=== PATIENT | male | born 1955 ===

== ENCOUNTER 2024-08-07 15:21 | Inpatient (IN) | payer MEDICARE, BC, SELFPAY ==
[2024-08-07 15:32] VITALS: BP 129/74
[2024-08-07 15:36] VITALS: BP 129/74; BMI 32.7
--- NOTE | 2024-08-07 16:51 | CON.CAR ---
Addendum entered and electronically signed by Celso Fox MD 08/07/24 18:02:
I saw and examined the patient.
The MACHINE EGG WASHER's note was reviewed and I agree with the note.
Comment: 68 yo with empyema and NSTEMI transfered to consider CAB and further management of empyema. He is currently without complaint. RRR no m/r/g lungs with dimished right bs, aa0x3. On reveiw of chart echo was read as low normal ef50% no
significant valve disease. Cath MVD. Fluid studies shows possible empyema of pleural fluid. NSTEMI: heparin gtt stopped yesterday and no further cp with an acute on chronic anemia that is now stable, will off on resumption.Continue asa, bb and
statin. Review with CT surgery and IC regarding revasc plan. Keep NPO on until plan is clear. Plueral effusion to be evaluated by IR. LC: will monitor DM as per medicine.
Original Note:
Consultation
Consultation Request
Date/Time Consultation Requested: 08/07/241643
Date/Time Consultation Performed: 08/07/243
Requesting Provider: Dr. Preciado
Performing Provider: Daniela SURESH for Dr. Fox
Reason for Consultation: CAD, [facility] transfer for CABG
Medical History
-
Chief Complaint: SOB
History of Present Illness:
68 y/o (cardiology patient of Dr. Antunez) with hypertension, dyslipidemia, DM, lymphedema, hypothyroidism, and hx colon cancer who went to [facility] with SOB. Was admitted with LC, pleural effusion, tachycardia, and elevated troponin per [facility]
records. Troponin was abnormal c/w NSTEMI and cardiac cath showed triple vessel CAD. He was temporarily on heparin drip. He is seen to have evidence for empyema and started on IV ABX. He is transferred here for further management. He is in no
distress at the time of my assessment.
Past Medical History
Past Medical History: HTN, Hypercholesterolemia, Hypothyroidism and NIDDM
Social History
Tobacco: Non-Smoker
Family History
Family History: CAD (dad)
Allergies / Home Medications
Allergy/AdvReac Type Severity Reaction Status Date / Time
No Known Allergies Allergy Verified 08/07/24 15:27
�Medication �Instructions �Recorded �Confirmed �Type
acetaminophen 325 mg tablet 650 mg PO Q6H PRN mild pain 08/07/24 08/07/24 History
(Tylenol)
albuterol sulfate 2.5 mg/3 mL 2.5 mg inhalation Q4H PRN wheezing 08/07/24 08/07/24 History
(0.083 %) solution for nebulization
allopurinol 300 mg tablet 300 mg PO DAILY 08/07/24 08/07/24 History
amlodipine 5 mg tablet 5 mg PO DAILY 08/07/24 08/07/24 History
aspirin 81 mg tablet,delayed 81 mg PO DAILY 08/07/24 08/07/24 History
release
atorvastatin 20 mg tablet 20 mg PO QPM 08/07/24 08/07/24 History
azithromycin 500 mg intravenous 500 mg IV Q24H 08/07/24 08/07/24 History
solution
budesonide 160 mcg-glycopyr 9 2 inh inhalation DAILY 08/07/24 08/07/24 History
mcg-formot 4.8 mcg/actuation HFA
inhaler (Breztri Aerosphere)
carvedilol 12.5 mg tablet 12.5 mg PO BID 08/07/24 08/07/24 History
ceftriaxone 1 gram intravenous 1 g IV Q24H 08/07/24 08/07/24 History
solution
furosemide 40 mg tablet 40 mg PO DAILY 08/07/24 08/07/24 History
glipizide 10 mg tablet 10 mg PO BID 08/07/24 08/07/24 History
guaifenesin 100 mg/5 mL oral liquid 100 mg PO Q4H PRN cough 08/07/24 08/07/24 History
irbesartan 300 1 tab PO DAILY 08/07/24 08/07/24 History
mg-hydrochlorothiazide 12.5 mg
tablet
melatonin 5 mg tablet 5 mg PO HS PRN sleep 08/07/24 08/07/24 History
methylprednisolone 4 mg tablets in 0 mg PO PER PKG DIR 08/07/24 08/07/24 History
a dose pack
pioglitazone 15 mg tablet 15 mg PO DAILY 08/07/24 08/07/24 History
Review of Systems
-
History Source: Patient and Other (and chart)
All other systems: Negative unless noted
Respiratory: Trouble Breathing
Physical Exam
Vital Signs
Temp Pulse Resp BP Pulse Ox
97.4 F 93 18 129/74 97
08/07/24 15:36 08/07/24 16:00 08/07/24 15:36 08/07/24 15:36 08/07/24 15:59
Physical Exam
General: Well Developed, Well Nourished and No Apparent Distress
HEENT: Normocephalic and Anicteric
Respiratory: Other (right base diminished)
Cardiac: Regular Rhythm
Musculoskeletal: Edema (mild-moderate BLE edema- chronic stable per patient)
Skin: Warm, Dry and Other (LLE dressing CDI (chronic wound))
Neuro: AO x 3
Psych: Calm
Impression / Plan
-
CAD/NSTEMI:
-CAD is severe, NSTEMI is threat to life
-He has no CP
-he was on heparin, but stopped last night
-continue ASA, statin, BB
-discussion between CTS and interventional cardiology
Empyema:
-management per primary
-on ABX
-ID consulted
-IR consulted for intervention tomorrow
LE wound:
-wound care consulted
Anemia:
-check labs here and monitor
HTN:
-stable
-continue medical therapy and monitor
Dyslipidemia:
-LDL 51 at [facility]
-continue statin
DM:
-per primary
Data:
08/05/24 echo: EF 50-55%, grade I DD, mildly elevated PASP
cath 08/06/24: severe triple vessel CAD (details in physical chart)
Data Reviewed
-
EKG: Tracing Personally Visualized and interpreted (ST 123 BPM, nonspecific ST/T abnormality)
Medical Tests (Nuc Med, Echo etc): Report Reviewed by me (cath and echo as noted)
Labs: Labs Reviewed by me
Old Records: Reviewed ([facility] records as noted)
[2024-08-07 17:07] LABS: Glucose - Point of Care 205 mg/dl (70-99)
[2024-08-07] MEDS: ROBITUSSIN 100 MG PO ×2 (17:14→21:30)
[2024-08-07] MEDS: LIPITOR 20 MG PO (17:14)
[2024-08-07] MEDS: ROCEPHIN 1000 MG IV (17:14)
[2024-08-07] MEDS: GLUCOTROL 10 MG PO (17:14)
[2024-08-07] MEDS: STERILE WATER FOR INJECTION 10 ML IV (17:14)
--- NOTE | 2024-08-07 17:21 | PHA.VAN.IN ---
Assessment
- Assessment
Renal Function: Unknown baseline
Concomitant Antimicrobials: ROCEPHIN
- Previous Dosing Experience
Previous Regimen: NONE
AUC Dosing Plan
- Dosing Variables
Dosing Weight (kg): 103.3
Dosing CrCl (ml/min): 74
Vd coefficient (L/kg): 0.6
- Empiric Dosing
Initial / Loading Dose: 2GM
Maintenance Regimen: 1GM IV Q12H
Estimated AUC (mcg*h/mL): 506
Estimated Peak (mcg*h/mL): 29.5
Estimated Trough (mcg/ml): 14.3
Estimated Half Life (H): 10.5
Pharmacokinetics Vancomycin I
- -
Patient Age: 68
Patient Sex: Male
Vancomycin Day #: 1
Indication: Pulmonary/Respiratory
Requesting Provider: JUNO HELTON
Height / Weight:
Height 5 ft 10 in
Actual Weight 103.3 kg
- Vital Signs / Lab Results
Temp Pulse Resp BP Pulse Ox
97.4 F 93 18 129/74 97
08/07/24 15:36 08/07/24 16:00 08/07/24 15:36 08/07/24 15:36 08/07/24 15:59
[2024-08-07] MEDS: ZITHROMAX INFUSION 250 IV (17:36)
--- NOTE | 2024-08-07 18:10 | HPS.HSE ---
Family Physician
-
Family Physician: INTERVIEWE UNKNOWN - PT NOT
Chief Complaint
-
SOB
History of Present Illness
68-year-old male with a past medical history of colon cancer status post resection, hypertension, hyperlipidemia, hypothyroidism, and DVT was transferred from [facility] [address] for right-sided empyema and triple-vessel coronary artery disease
requiring CABG. Patient initially presented to [facility] on 08/04/24 for shortness of breath. He was found to have a right-sided empyema as well as an NSTEMI. He was temporarily on a heparin drip. Cardiac catheterization showed
triple-vessel coronary artery disease. He is currently on IV antibiotics for his empyema.
Currently, patient reports resolution of shortness of breath. He denies chest pain. His cough is improved. No fever, no headache, no lightheadedness, no dizziness. No dysuria, no black or bloody stools.
Medical History
Past Medical History
Past Medical History: Reports Other
Additional Past Medical History:
Colon cancer status post resection
Hypertension
Hyperlipidemia
Hypothyroidism
Type 2 diabetes
Gout
DVT
Shingles
Past Surgical History: Reports Other
Additional Past Surgical History:
Colon resection
Right wrist surgery
Left knee arthroscopy
Social History
Tobacco: Non-smoker
Alcohol: Occasional
Drug: None
Family History
Family History: Not pertinent
Allergies / Home Medications
Allergies reflects when Allergies were last updated in [facility].
Home Medications with original date entered in [facility]
Allergy/Medication List:
Allergies
Allergy/AdvReac Type Severity Reaction Status Date / Time
shellfish derived Allergy Itching Verified 08/07/24 17:12
Home Medications Table - record
�Medication �Instructions �Recorded �Confirmed
acetaminophen 325 mg tablet 650 mg PO Q6H PRN mild pain 08/07/24 08/07/24
(Tylenol)
albuterol sulfate 2.5 mg/3 mL 2.5 mg inhalation Q4H PRN wheezing 08/07/24 08/07/24
(0.083 %) solution for nebulization
allopurinol 300 mg tablet 300 mg PO DAILY 08/07/24 08/07/24
amlodipine 5 mg tablet 5 mg PO DAILY 08/07/24 08/07/24
aspirin 81 mg tablet,delayed 81 mg PO DAILY 08/07/24 08/07/24
release
atorvastatin 20 mg tablet 20 mg PO QPM 08/07/24 08/07/24
azithromycin 500 mg intravenous 500 mg IV Q24H 08/07/24 08/07/24
solution
budesonide 160 mcg-glycopyr 9 2 inh inhalation DAILY 08/07/24 08/07/24
mcg-formot 4.8 mcg/actuation HFA
inhaler (Breztri Aerosphere)
carvedilol 12.5 mg tablet 12.5 mg PO BID 08/07/24 08/07/24
ceftriaxone 1 gram intravenous 1 g IV Q24H 08/07/24 08/07/24
solution
furosemide 40 mg tablet 40 mg PO DAILY 08/07/24 08/07/24
glipizide 10 mg tablet 10 mg PO BID 08/07/24 08/07/24
guaifenesin 100 mg/5 mL oral liquid 100 mg PO Q4H PRN cough 08/07/24 08/07/24
irbesartan 300 1 tab PO DAILY 08/07/24 08/07/24
mg-hydrochlorothiazide 12.5 mg
tablet
melatonin 5 mg tablet 5 mg PO HS PRN sleep 08/07/24 08/07/24
methylprednisolone 4 mg tablets in 0 mg PO PER PKG DIR 08/07/24 08/07/24
a dose pack
pioglitazone 15 mg tablet 15 mg PO DAILY 08/07/24 08/07/24
Review of Systems
-
A 12 point ROS was completed and negative except as noted: Yes
Physical Exam
Vital Signs
Vital Signs
Temp Pulse Resp BP Pulse Ox
97.4 F 93 18 129/74 97
08/07/24 15:36 08/07/24 16:00 08/07/24 15:36 08/07/24 15:36 08/07/24 15:59
Physical Exam
General: Obese
HEENT: NormoCephalic, Anicteric and Moist mucous membranes
Respiratory: Crackles
Cardiac: S1/S2 and Regular Rhythm
GI: Soft, Non Tender, Non Distended and Normal Bowel Sounds
Musculoskeletal: No Clubbing, No Cyanosis and No Edema
Skin: Warm and Dry
Neuro: Awake, Alert and Oriented
Psych: Calm
Impression/Plan
-
HPI: 68-year-old male with a past medical history of colon cancer status post resection, hypertension, hyperlipidemia, hypothyroidism, and DVT was transferred from [facility] for right-sided empyema and triple-vessel coronary artery
disease requiring CABG. Patient initially presented to [facility] on 08/04/24 for shortness of breath. He was found to have a right-sided empyema as well as an NSTEMI. He was temporarily on a heparin drip. Cardiac catheterization
showed triple-vessel coronary artery disease. He is currently on IV antibiotics for his empyema.
Currently, patient reports resolution of shortness of breath. He denies chest pain. His cough is improved. No fever, no headache, no lightheadedness, no dizziness. No dysuria, no black or bloody stools.
Assessment/plan:
# Right-sided empyema
Thoracentesis on drained 10 cc of bloody fluid
He was treated with IV Rocephin, IV azithromycin, and IV vancomycin - continue while here
Consult IR, consult pulmonology, consult ID
#Non-ST elevation myocardial infarction
#Triple-vessel CABG
Consult cardiology
Continue aspirin, statin, Coreg
#Acute kidney injury
Monitor creatinine, no nephrotoxic drugs/NSAIDs
#Type 2 diabetes
Patient is on glipizide 10 mg twice a day, pioglitazone 50 mg daily
Will hold oral medications as patient is anticipated to be n.p.o. for his procedures
Accu-Cheks, sliding scale insulin
#Essential hypertension
Continue amlodipine 5 mg daily
#Gout
Continue allopurinol
DVT prophylaxis�subcu Lovenox
Full code
Total time spent to see the patient on the floor, examine the patient, review data and lab results, discuss treatment plan with patient, nursing staff around 79 minutes.
[2024-08-07] MEDS: LOVENOX 40 MG SC (18:33)
[2024-08-07] MEDS: VANCOCIN 540 MG IV (18:34)
[2024-08-07 18:53] VITALS: BP 119/67
--- NOTE | 2024-08-07 18:55 | CON.PUL ---
Consultation
Consultation Request
Date/Time Consultation Requested: 08/07/2024
Date/Time Consultation Performed: 08/07/2024
Requesting Provider: Robby Preciado
Performing Provider: Shruthi Branham
Reason for Consultation: Empyema
Medical History
-
Chief Complaint: Hemoptysis, shortness of breath
History of Present Illness:
68-year-old male with a past medical history of colon cancer status post resection, hypertension, hyperlipidemia, hypothyroidism, and DVT (25 years ago) was transferred from [facility] for right-sided empyema and triple-vessel coronary
artery disease for consideration of IR guided drainage and CABG.
Patient reports cough and flu like symptoms few weeks ago which were managed conservatively first, and later with Z-Pack and a short of course of steroids. His symptoms however persisted, and he started having trace hemoptysis along with shortness
of breath. He presented to ED at [facility] and was noted to have right sided pneumonia with loculated pleural effusion. During his stay there, he was also noted to have elevated Troponin, and was diagnosed with NSTEMI, subsequent cardiac cath
showed multivessel disease. He also had IR guided thoracentesis with 10 ml of sanguinous fluid which was noted to be exudate with elevated LDH, and subsequent gram stain was positive for Gram positive cocci, suggestive of empyema. Pulmonary consult
was requested for further recommendations regarding empyema.
Medical History
Additional Past Medical History:
Colon cancer status post resection
Hypertension
Hyperlipidemia
Hypothyroidism
Type 2 diabetes
Gout
DVT, 25 years ago, not on anticoagulation currently
Shingles
Past Surgical History: Reports Other
Additional Past Surgical History:
Colon resection
Right wrist surgery
Left knee arthroscopy
Social History
Tobacco: Non-smoker
Alcohol: Occasional
Drug: None
Family History
Family History: Not pertinent
Allergies / Home Medication
Allergies / Home Medications
Allergies
Allergy/AdvReac Type Severity Reaction Status Date / Time
shellfish derived Allergy Itching Verified 08/07/24 17:12
Home Medications
�Medication �Instructions �Recorded �Confirmed �Last Taken �Type
acetaminophen 325 mg tablet 650 mg PO Q6H PRN mild pain 08/07/24 08/07/24 Unknown History
(Tylenol)
albuterol sulfate 2.5 mg/3 mL 2.5 mg inhalation Q4H PRN wheezing 08/07/24 08/07/24 Unknown History
(0.083 %) solution for nebulization
allopurinol 300 mg tablet 300 mg PO DAILY 08/07/24 08/07/24 08/07/24 09:27 History
amlodipine 5 mg tablet 5 mg PO DAILY 08/07/24 08/07/24 08/07/24 09:27 History
aspirin 81 mg tablet,delayed 81 mg PO DAILY 08/07/24 08/07/24 08/07/24 09:27 History
release
atorvastatin 20 mg tablet 20 mg PO QPM 08/07/24 08/07/24 08/06/24 21:53 History
azithromycin 500 mg intravenous 500 mg IV Q24H 08/07/24 08/07/24 08/06/24 21:37 History
solution
budesonide 160 mcg-glycopyr 9 2 inh inhalation DAILY 08/07/24 08/07/24 08/05/24 17:15 History
mcg-formot 4.8 mcg/actuation HFA
inhaler (Breztri Aerosphere)
carvedilol 12.5 mg tablet 12.5 mg PO BID 08/07/24 08/07/24 08/07/24 09:27 History
ceftriaxone 1 gram intravenous 1 g IV Q24H 08/07/24 08/07/24 08/06/24 21:53 History
solution
furosemide 40 mg tablet 40 mg PO DAILY 08/07/24 08/07/24 08/07/24 09:27 History
glipizide 10 mg tablet 10 mg PO BID 08/07/24 08/07/24 Unknown History
guaifenesin 100 mg/5 mL oral liquid 100 mg PO Q4H PRN cough 08/07/24 08/07/24 Unknown History
irbesartan 300 1 tab PO DAILY 08/07/24 08/07/24 Unknown History
mg-hydrochlorothiazide 12.5 mg
tablet
melatonin 5 mg tablet 5 mg PO HS PRN sleep 08/07/24 08/07/24 08/06/24 21:53 History
methylprednisolone 4 mg tablets in 0 mg PO PER PKG DIR 08/07/24 08/07/24 Unknown History
a dose pack
pioglitazone 15 mg tablet 15 mg PO DAILY 08/07/24 08/07/24 Unknown History
Review of Systems
-
All other systems: Negative unless noted (No further hemoptysis. no cough, no chest pain )
Hematologic/Lymphatic: Other
Vitals / Labs / Diagnostic Testing
Vital Signs
Temp Pulse Resp BP Pulse Ox
97.4 F 93 18 129/74 97
08/07/24 15:36 08/07/24 16:00 08/07/24 15:36 08/07/24 15:36 08/07/24 15:59
Diagnostic Testing:
Physical Exam
-
HEENT: Normocephalic
Cardiovascular: S1/S2 and Peripheral Edema (Patient reports chronic lymphedema of both legs)
Respiratory: Other (Decreased air entry on the right side )
GI: Soft and Non Distended
Neurology: Awake and Alert
Skin: Warm
General: Comfortable
Assessment
-
#1. Right lung consolidation with Empyema. Pleural fluid Gram stain positive for GPC. Bedside POCUS performed and showed loculated pleural effusion with extensive phlegmon. Small volume fluid visualized.
-Start Vancomycin and Unasyn, ID consult
-Await final cultures of pleural fluid
-IR consult for chest tube, will start tPA/DNAse via chest tube. Discussed with IR and primary team.
-Considering extent of phlegmon, patient might need decortication. Will repeat CT chest after pleural drainage after 3-4 days of IV antibiotics and tPA/DNAse. Await Thoracic surgery input (patient also might need CABG)
#2. Hemoptysis. Suspect related to right lung consolidation. Resolved. Patient has never smoked.
-Will need CT chest for further evaluation after pleural drainage and treatment of pneumonia to evaluate for any parenchymal lesion, specially with h/o colon cancer
-Currently saturating well on room air
-Continue Vancomycin and Unasyn, await final cultures
-Patient tolerated ASA and Heparin infusion without any worsening hemoptysis prior to transfer
#3. Dyspnea. Due to Pneumonia, empyema and CAD
-Clinically improving. Cough significantly improved
-Patient has never smoked, no known h/o COPD/Asthma. D/c Spiriva and Symbicort
#4. NSTEMI, tripple vessel CAD
-ASA, Statins, Coreg
-Currently chest pain free
-Cardiology service on case.
Other medical diagnoses:
-HTN
-HLD
-DM
-h/o Gout
-?Lymphedema both lower extremities
Records from outside facility reviewed.
Pulmonary team will continue to follow
Total time spent on this consultation/encounter _81__ minutes which includes review of history, physical exam, medications, laboratory data, personal review of imaging, extensive review of outpatient records, discussion with care team and
respiratory therapy.
Data:
ECHO 04/2024: Technically limited and suboptimal study.
Grossly normal chamber size.
Grossly normal left and right ventricular systolic function.
Grade 1 diastolic dysfunction.
Trivial mitral, tricuspid and pulmonic insufficiency.
[2024-08-07 21:06] VITALS: BP 122/73
[2024-08-07] MEDS: COREG 12.5 MG PO (21:06)
[2024-08-07] MEDS: UNASYN IV (21:31)
[2024-08-07 22:14] VITALS: BP 126/71
[2024-08-07 22:17] LABS: Glucose - Point of Care 69 mg/dl (70-99)
[2024-08-07 22:47] LABS: Glucose - Point of Care 85 mg/dl (70-99)
--- NOTE | 2024-08-07 23:41 | PTCARENOTE ---
assumed care of patient at the change of shift. AAOx3. resting in the chair. independent in the room. SR on tele 80s-90s. bp stable. denies any cp/sob. + harsh/productive cough. 'coughing spells' per patient at times. PRN Robitussin given. lungs
clear, diminished R base. NPO at midnight. Chest xray ordered for the AM. answered all questions. IV abx ordered and given- new IV site placed. educated patient to inform RN with any changes overnight. call adams within reach makes needs know.
HS blood glucose- 69. patient asymptomatic. orange juice provided per protocol. repeat BG- 85.
[2024-08-08] VITALS (16 sets, daily range): BP systolic 86–154; BP diastolic 62–85
[2024-08-08 01:11] LABS: Glucose - Point of Care 87 mg/dl (70-99)
[2024-08-08] MEDS: UNASYN IV ×4 (03:57→20:53)
[2024-08-08 04:10] LABS: Glucose - Point of Care 98 mg/dl (70-99)
[2024-08-08 04:47] LABS: Hematocrit 26.3 % (39.0-52.0); Hemoglobin 8.9 g/dL (13.0-18.0); Mean Corp Hgb Conc. 33.8 g/dL (33.0-37.0); Mean Corpuscular Volume 103.5 fL (80.0-94.0); Mean Platelet Volume 11.2 fL (7.4-10.4); Platelet Count 254 10^3/uL (130-400); Red Blood Cell Count 2.54 10^6/uL (4.70-6.10); White Blood Cell Count 13.3 10^3/uL (4.8-10.8)
[2024-08-08 05:08] LABS: Blood Urea Nitrogen 39 mg/dl (9-20); Calcium 8.5 mg/dl (8.4-10.2); Carbon Dioxide 24 mmol/L (22-30); Chloride 109 mmol/L (98-107); Estimated Creatinine Clearance 72 ml/min; Glucose 93 mg/dl (70-99); Magnesium 1.5 mg/dl (1.6-2.3); Potassium 3.8 mmol/L (3.5-5.1); Sodium 141 mmol/L (135-145); eGFR > 60.00
[2024-08-08 05:18] LABS: NT-proBNP 1500 pg/ml
[2024-08-08 05:57] LABS: Hepatitis C Antibody Negative (Negative)
[2024-08-08] MEDS: VANCOCIN 200 IV ×2 (06:27→18:26)
[2024-08-08] MEDS: MAGNESIUM SULFATE 50 IV (06:28)
--- NOTE | 2024-08-08 06:34 | PTCARENOTE ---
mag 1.5 this morning. 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 2 gram IV mag ordered-see jun. nom complaints overnight. SR on tele 80s. room air 96%.
[2024-08-08 08:28] LABS: Glucose - Point of Care 139 mg/dl (70-99)
[2024-08-08] MEDS: NOVOLOG FLEXPEN-MODERATE RESISTANCE SC ×3 (08:52→16:48)
[2024-08-08] MEDS: COREG PO ×2 (09:04→11:42)
[2024-08-08] MEDS: NORVASC 5 MG PO (09:04)
[2024-08-08] MEDS: ASPIR LOW (ENTERIC COATED) 81 MG PO (09:05)
[2024-08-08] MEDS: LASIX 40 MG PO (09:05)
[2024-08-08] MEDS: ZYLOPRIM 300 MG PO (09:05)
--- NOTE | 2024-08-08 09:05 | PHA.VAN.FU ---
Vancomycin Assessment / Plan
- Assessment
Renal Function: Stable (1.2 (unknown baseline))
WBC's are: Stable (13.3)
In the past 24 hrs, patient has been: Afebrile
Concomitant Antimicrobials: Ampicillin/Sulbactam
- Dosing Plan
Continue: Vanco 1000mg Q12H
- Monitoring Plan
No level(s) ordered at this time: Consider in the next few days
- Follow Up
Pharmacy will continue to follow.
Vancomycin Follow UP
- -
Patient Age: 68
Patient Sex: Male
Vancomycin Day #: 2
Indication: Pulmonary/Respiratory
Requesting Provider: JUNO HELTON
Height / Weight:
Height 5 ft 10 in
Actual Weight 103.3 kg
- Vital Signs / Lab Results
Temp Pulse Resp BP Pulse Ox
98.9 F 90 20 112/69 96
08/08/24 08:11 08/08/24 04:00 08/08/24 08:11 08/08/24 03:58 08/08/24 08:11
Lab Results - Hematology
08/08/24
04:09
WBC 13.3 H
Lab Results - Chemistry
08/08/24
04:09
BUN 39 H
Creatinine 1.2
Estimated Creat Clear 72
--- NOTE | 2024-08-08 09:10 | W.PN.HOSP.TC ---
Today's Communication/Plan
-
see bold
Assessment / Plan
Assessment / Plan
HPI: 68-year-old male with a past medical history of colon cancer status post resection, hypertension, hyperlipidemia, hypothyroidism, and DVT was transferred from [facility] for right-sided empyema and triple-vessel coronary artery
disease requiring CABG. Patient initially presented to [facility] on 08/04/24 for shortness of breath. He was found to have a right-sided empyema as well as an NSTEMI. He was temporarily on a heparin drip. Cardiac catheterization
showed triple-vessel coronary artery disease. He is currently on IV antibiotics for his empyema.
Currently, patient reports resolution of shortness of breath. He denies chest pain. His cough is improved. No fever, no headache, no lightheadedness, no dizziness. No dysuria, no black or bloody stools.
Assessment/plan:
# Right-sided empyema
Thoracentesis on drained 10 cc of bloody fluid
He was treated with IV Rocephin, IV azithromycin, and IV vancomycin
Currently on IV vancomycin and Unasyn as per pulmonology
Appreciate pulmonology and IR, for right-sided chest tube today
ID consulted
#Non-ST elevation myocardial infarction
#Triple-vessel CAD
Cardiology following, patient was transferred from [facility] to [place] in anticipation of needing CABG
Continue aspirin, statin, Coreg
#Acute kidney injury
Resolved, creatinine now normal
Monitor creatinine, no nephrotoxic drugs/NSAIDs
#Type 2 diabetes
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
Patient's blood sugar has been on the lower side
Give glipizide 5 mg twice a day for now
Accu-Cheks, sliding scale insulin
#Essential hypertension
Amlodipine discontinued secondary to lower extremity edema
Monitor blood pressure for now
#Gout
Continue allopurinol
#Hypomagnesemia
Replete as needed
DVT prophylaxis�subcu Lovenox
Full code
Total time spent to see the patient on the floor, examine the patient, review data and lab results, discuss treatment plan with patient, nursing staff around 41 minutes.
Physical Exam
General: Obese, no acute distress
HEENT: Normocephalic, Atraumatic, EOMI, MMM
Respiratory: Right basilar crackles
Cardiac: Normal S1/S2, Regular Rate and Rhythm
GI: Soft, Nontender, Nondistended, Normal Bowel Sounds
Extremities: No Clubbing, Cyanosis
Severe bilateral lower extremity lymphedema noted
Neuro: Nonfocal/Grossly Intact
Psych: Calm, Cooperative
Anticipated Discharge: > 48 hours
Subjective/Interval History
-
Date of Service: August 08, 2024
Patient denies chest pain, shortness of breath. No fever, no vomiting.
Objective Data
-
Labs:
Laboratory Results
08/08/24
04:09
WBC 13.3 H
Hgb 8.9 L
Hct 26.3 L
Plt Count 254
Sodium 141
Potassium 3.8
Chloride 109 H
Carbon Dioxide 24
BUN 39 H
Creatinine 1.2
Glucose 93
Calcium 8.5
Vital Signs:
Vital Signs
Temp Pulse Resp BP Pulse Ox
98.9 F 86 20 114/72 96
08/08/24 08:11 08/08/24 09:04 08/08/24 08:11 08/08/24 09:04 08/08/24 08:11
I&O
08/07/24 08/08/24 08/09/24
06:59 06:59 06:59
Intake Total 450 / 450
Balance 450 / 450
--- NOTE | 2024-08-08 09:49 | W.PN.PUL3 ---
Today's Communication / Plan
-
-D/c Norvasc (pedal edema)
-IR guided pleural drainage, start tPA/DNAse
-Check pleural fluid and serum Triglycerides
-f/u CXR in AM
Assessment
-
8-year-old male with a past medical history of colon cancer status post resection, hypertension, hyperlipidemia, hypothyroidism, and DVT (25 years ago) was transferred from [facility] for right-sided empyema and triple-vessel coronary
artery disease for consideration of IR guided drainage and CABG.
Patient reports cough and flu like symptoms few weeks ago which were managed conservatively first, and later with Z-Pack and a short of course of steroids. His symptoms however persisted, and he started having trace hemoptysis along with shortness
of breath. He presented to ED at [facility] and was noted to have right sided pneumonia with loculated pleural effusion. During his stay there, he was also noted to have elevated Troponin, and was diagnosed with NSTEMI, subsequent cardiac cath
showed multivessel disease. He also had IR guided thoracentesis with 10 ml of sanguinous fluid which was noted to be exudate with elevated LDH, and subsequent gram stain was positive for Gram positive cocci, suggestive of empyema. Pulmonary consult
was requested for further recommendations regarding empyema.
#1. Right lung consolidation with Empyema. Pleural fluid Gram stain positive for GPC. Bedside POCUS performed (08/07) and showed loculated pleural effusion with extensive phlegmon. Small volume fluid visualized. 08/05, Pleural fluid LDH 1569, Fluid
triglycerides 202
-Continue Vancomycin and Unasyn, ID consult
-Await final cultures of pleural fluid
-IR consult for chest tube, will start tPA/DNAse via chest tube. Discussed with IR and primary team.
-Pleural fluid triglyceride >110 (202 on 07/2024). Will repeat pleural fluid Triglycerides and also check serum triglycerides to see the ratio to evaluate for any chylothorax
-Considering extent of phlegmon, patient might need decortication. Will repeat CT chest after pleural drainage, after 3-4 days of IV antibiotics and tPA/DNAse. Await Thoracic surgery input (patient also might need CABG)
#2. Hemoptysis. Suspect related to right lung consolidation. Resolved. Patient has never smoked. No PE noted on CTA on 08/04/2024
-Will need CT chest for further evaluation after pleural drainage and treatment of pneumonia to evaluate for any parenchymal lesion, specially with h/o colon cancer.
-Currently saturating well on room air
-Continue Vancomycin and Unasyn, await final cultures
-Patient tolerated ASA and Heparin infusion without any worsening hemoptysis prior to transfer
#3. Dyspnea. Due to Pneumonia, empyema and CAD
-Clinically improving. Cough significantly improved
-Patient has never smoked, no known h/o COPD/Asthma. D/c Spiriva and Symbicort
#4. NSTEMI, tripple vessel CAD
-ASA, Statins, Coreg
-Currently chest pain free
-Cardiology service on case.
#5. Mild Pulmonary HTN. RHC on 07/2024 showed mean PAP 22 with PVR 1.7. PCWP 9.
-Patient will need sleep study as out patient as high pre-test probability of underlying sleep disordered breathing
-Will arrange out patient follow up with Pulmonary clinic
#6. Chronic pedal edema. Patient reports long standing edema. ?lymphedema vs medication related. PCWP normal
-D/c Norvasc, can cause pedal edema
-on Lasix currently
Other medical diagnoses:
-HTN
-HLD
-DM
-h/o Gout
-?Lymphedema both lower extremities
Records from outside facility reviewed.
Pulmonary team will continue to follow
Total time spent on this consultation/encounter _42__ minutes which includes review of history, physical exam, medications, laboratory data, personal review of imaging, extensive review of outpatient records, discussion with care team and
respiratory therapy.
Data:
ECHO 04/2024: Technically limited and suboptimal study.
Grossly normal chamber size.
Grossly normal left and right ventricular systolic function.
Grade 1 diastolic dysfunction.
Trivial mitral, tricuspid and pulmonic insufficiency.
CT Chest 08/04/2024: No PE noted. Loculated pleural effusion on right. No Lymphadenopathy
Cardiac Cath 08/06: Severe Tripple vessel CAD
ECHO 07/2024: Grade I diqastolic dysfunction, LVEF 50-55%, mildly elevated Pulm artery pressure, 30 mm
RHC 07/2024: PA 38/15 with mean of 22
PCWP 9, Cardiac output 7.3 with CI 3.36, PVR 1.7
Subjective Data
-
Date of Service:
Date of Service: August 08, 2024
Subjective:
Patient comfortably sitting in bed, no acute distress. No further hemoptysis. Mild nonproductive cough. No chest pain reported.
Review of Systems
Genitourinary: Other (All 14 systems reviewed and negative except as stated above in the history of present illness.)
Objective Data
Data Reviewed
Vital Signs / I&O / Oxygen:
Vital Signs
Temp Pulse Resp BP Pulse Ox
98.9 F 86 20 114/72 96
08/08/24 08:11 08/08/24 09:04 08/08/24 08:11 08/08/24 09:04 08/08/24 08:11
Intake and Output
08/07/24 08/08/24 08/09/24
06:59 06:59 06:59
Intake Total 450 / 450
Balance 450 / 450
SaO2 96
Physical Exam
General: Comfortable
HEENT: Normocephalic
Cardiovascular: S1-S2 and Peripheral Edema
Respiratory: Other (Somewhat decreased air entry in the right lower lobe, otherwise no wheezing or crackles.)
GI: Soft and Non Distended
Neurology: Awake and Alert
Labs/Micro/Reports
Lab Data
08/08/24 04:09
08/08/24 04:09
--- NOTE | 2024-08-08 10:12 | CM ---
Chart reviewed. Patient is independent of ADLS, lives with his in a split level, 0 ALFREDO, 0 DME. Plan is for the patient to return home. CM to follow
[2024-08-08 10:18] LABS: Glycohemoglobin (HgbA1c) 7.2 % (4.0-5.6)
--- NOTE | 2024-08-08 10:59 | WOUNDNOTE ---
Wound Care Instructions Follow up with your wound care Doctor at [facility] and resume wound care as ordered
Continue with pumps/compression as ordered.
[2024-08-08 12:08] LABS: Glucose - Point of Care 125 mg/dl (70-99)
--- NOTE | 2024-08-08 12:17 | WOUNDNOTE ---
WO RN NOTE: Reviewed chart and met with patient. Patient stated he follows with [facility] for left lateral leg wound. He states he has had the wound for approximally 6 months. Patient also states he wears compression daily and
uses lymphedema pumps at home. He moisturizes his LE daily and ambulates independently. shift boss RN appropriately provided wound care. Patient states he uses alginate if drainage becomes heavy. Will update orders. Confirmed order for compression
with LILLIAN with hospitalist and updated RN. Will follow as needed.
--- NOTE | 2024-08-08 13:18 | CON.ID ---
Consultation
-
Date/Time Consultation Requested: 08/07/24 16:22
Date/Time Consultation Performed: 08/08/24 13:18
Requesting Provider: Dr Preciado
Performing Provider: Dr Bailey
Reason for Consultation: empyema
Chief Complaint / Past History
Chief Complaint
shortness of breath
History of Present Illness
Mr Miller is a 68 year old male with history of colon cancer s/p resection and recent diagnosis of empyema and 3x vessel CAD requiring CABG at [facility] transferred for the CABG. Notes from [facility] are not currently available on the paper chart and
do not yet appear to be scanned into [employer] - this would typically occur when notes are in medical records to be scanned in. History is thus obtained by chart review. He first presented to [facility] 08/04 for shortness of breath where he was found to
have R sided empyema and tipple vessel CAD on cardiac cath. Reports no coughing or choaking with eating. No history of MRSA colonization that he is aware of.
Symptoms first occurred several weeks ago, flu like, first observed, later treated with a zpac and then a short course of steroids. He progressed to hemoptysis and shortness of breath. He presented to [facility] found to have R sided pnuemonia and
loculuated pleural effusion. IR thoracenteissi of 10 mL of sanguinous fluid, exudative, with elevated LDH and gram stain positive for GPCs.
Since arrival here patient has been afebrile, bp stable, wbc 13.3, hgb 8.9, plt 254, cr 1.2, a1c 7.2, bnp 1500, CXR 1 view: Moderate right pleural effusion. Some of this effusion is likely loculated in the right lower thorax medially. Mild
compressive partial atelectasis in right lower lobe. patient taken for chest tube placement and had routine studies that are not yet available.
Past History
Additional Past Medical History:
Colon cancer status post resection
Hypertension
Hyperlipidemia
Hypothyroidism
Type 2 diabetes
Gout
DVT
Shingles
Additional Past Surgical History:
Colon resection
Right wrist surgery
Left knee arthroscopy
Allergy History:
shellfish derived Allergy (Verified 08/07/24 17:12)
Itching
Medications Reviewed: Yes
Social History
Tobacco: Non-Smoker
Alcohol: Occasional
Drug: None
Family History
Family History: Not Pertinent
Review of Systems
Review of Systems
General: Negative Fever or Chills
All systems: All other systems were reviewed and were negative
Vital Signs
Temp Pulse Resp BP Pulse Ox
98.1 F 94 15 153/85 97
08/08/24 12:50 08/08/24 12:50 08/08/24 12:50 08/08/24 12:50 08/08/24 12:50
Physical Exam
Physical Exam
Constitutional: No Acute Distress and Chronically Ill
Cardiovascular: Regular Rate and S1/S2; Negative Murmur or Rub
Pulmonary: Clear and Coarse; Negative Symmetric, Wheezes, Rales or Rhonchi
Gastrointestinal: Soft, Non Tender, Non Distended and Normal Bowel Sounds
Skin: Warm and Dry; Negative Rash or Jaundice
Lab / Diagnostic Study Results
08/08/24 04:09
08/08/24 04:09
Assessment / Plan
R Sided Empyema
Pulmonary HTN
CAD
- s/p chest tube placement
- pleural studies notable for markedly elevated LDH - consistent with exudate,
- peripheral LDH and protein ordered
- body fluid gram stain here pending, at OSH notable for GPCs
- agree with repeat CT chest in several days
- chest tube management per pulmonary
- note consideration of possible decortication, eventual CABG
- agree with vancomycin and unasyn at this time
- follow vancomycin levels closely
- follow clinically
workup required interpretation of multiple lab results and antibiotic management
--- NOTE | 2024-08-08 13:57 | PN.IRAD.UPD ---
Update Note - IRAD
- -
Instilled 50ml of Dornase and 50ml of TPA into right sided chest tube and clamped at 13:55. Unclamp chest tube at 15:55.
Mehrdad Alvarado RT(R)()
[2024-08-08 14:36] LABS: Body Fluid pH 7.28
--- NOTE | 2024-08-08 14:41 | PTCARENOTE ---
received pt back from IR. R CT dressing dry and intact. CT currently clamped. pt is sr on the monitor, hr in the 90s, vss. O2 95% RA. pt has no complaints at this time. pt educated on plan of care and pt verbalized understanding.
[2024-08-08 14:44] LABS: Body Fluid WBC 5518 /CUMM
[2024-08-08 14:45] LABS: Body Fluid Mononuclear 12.4 %; Body Fluid Polymorphonuclear 87.6 %
[2024-08-08 14:47] LABS: Body Fluid Protein 4.6 g/dl; Body Fluid Triglycerides 126 mg/dl
[2024-08-08 14:48] LABS: Body Fluid Second Tech EM
[2024-08-08] MEDS: ROBITUSSIN 100 MG PO ×2 (15:13→19:52)
[2024-08-08 15:17] LABS: Body Fluid LDH 1185 U/L
[2024-08-08] MEDS: ROXICODONE 5 MG PO (16:31)
[2024-08-08] MEDS: GLUCOTROL 5 MG PO (16:44)
[2024-08-08 16:50] LABS: Glucose - Point of Care 116 mg/dl (70-99)
--- NOTE | 2024-08-08 17:02 | W.PN.CD ---
Today's Communication / Plan
-
Review cardiac catheterization.
Medical management of this type 2 event (non-ischemic troponin elevation).
Presentation is clearly related to his PNA/empyema.
Ideally, we will let the patient recover from his PNA and allow him to get full revascularization and avoid worsening hemoptysis from required DAPT for PCI.
Impression / Plan
-
Impression/Plan: 68 y/o male with HTN, HLD and NIDDM admitted to [facility] with SOB, found to have right sided PNA complicated by empyema and abnormal troponin, subsequently diagnosed with 3V CAD and transferred for further management.
#CAD/Troponin elevation
-Chronic, progressive.
-CAD is reportedly severe.
-He has no CP.
-Troponin peaked at 3995 at [facility] (DH equivalent of 3.995).
-Echo reportedly technically difficult, unable to assess RWMA, but LVEF preserved (50-55%).
-I suspect that his troponin elevation is a type II event and not acute coronary syndrome (non-ischemic troponin elevation).
-Continue ASA, statin, BB.
-I have spoken with Dr. Burns, the rayon coner who performed the coronary angiogram. Based on the patient's troponin pattern and his coronary artery disease, Dr. Burns and I agree that this event is NOT ACS, but rather a type 2 event.
-Accordingly, I suggest that this event be managed medically and efforts are focused on his PNA/empyema. After this is definitively managed, we can consider elective revascularization (surgical, percutaneous, hybrid).
-I will ask [facility] to send a pepper cutter with a copy of the patient's films on Sunday.
#PNA/Empyema
-Acute, threat to life.
-Pleural fluid positive for GPC's (08/05/2024).
-Chest tube placed with chemical decortication (tPA).
-Continue ABX per ID.
-Cx data pending.
#LE wound
-Unclear duration.
-Wound care consulted.
#Anemia:
-Unclear duration.
-MCV elevated.
-Check Fe studies, B12/Folate/Thiamine, reticulocyte count.
#HTN:
-Chronic, stable.
-Continue medical therapy and monitor.
#Dyslipidemia
-Chronic, stable.
-LDL 51 at [facility].
-Continue statin.
#DM
-Chronic, mildly uncontrolled.
-HbA1c = 7.2%.
-Management per primary team.
Subjective/Interval History:
Chart reviewed.
Patient underwent chest tube placement with 30 mL of dark, serous fluid.
Heparin gtt stopped given distance from troponin elevation, unlikely ACS.
Data:
[facility] Echo, 05/13/2024:
CONCLUSIONS
Technically limited and suboptimal study.
Grossly normal chamber size.
Grossly normal left and right ventricular systolic function.
Grade 1 diastolic dysfunction.
Trivial mitral, tricuspid and pulmonic insufficiency.
Cardiac Catheterization 08/06/24:
Severe triple vessel CAD (details in physical chart).
Chest Tube Placement, 08/08/2024:
IMPRESSION:
1. Successful ultrasound and fluoroscopically guided placement of a right chest tube, yielding 30 mL of dark serous nonpurulent fluid.
2. TPA and dornase were then infused into the chest tube immediately following placement (please see separate report).
Physical Exam
Vital Signs/Labs
Vital Signs
Temp Pulse Resp BP Pulse Ox
36.9 C 95 20 127/70 97
08/08/24 14:39 08/08/24 14:16 08/08/24 14:39 08/08/24 14:16 08/08/24 14:39
08/07/24 08/08/24 08/09/24
11:59 11:59 11:59
Actual Weight 103.3 kg
08/08/24 04:09
08/08/24 04:09
Magnesium 1.5 mg/dl (1.6-2.3) L 08/08/24 04:09
08/08/24
04:09
Gvr-L-Mrlggssylon Pept 1500
Physical Exam
Constitutional: No acute distress and Comfortable
EENT: Anicteric and Moist mucous membranes
Cardiovascular: Rhythm & rate is regular, JVD pressure is normal, Pedal edema present, S1S2 is normal and Murmur/rub/gallop absent
Respiratory: Respiratory effort normal and Other (Decreased, tubular breath sounds in the RLL.)
GI: Soft, Distention absent, Flat, Non tender and Normal bowel sounds
Neuro/Psych: AO x 3
Data Reviewed
-
Date of Service: August 08, 2024
Medical Decision Making: Reviewed Test Results, Independent Historian Assessment and Test Interpretation
EKG: Tracing Personally Visualized and interpreted and Report Reviewed by me
Echo: Report Reviewed by me
X-Ray/CT/US/MRI/NUC/PET: Image Personally Visualized and interpreted and Report Reviewed by me
Medical Tests (PFT, Pathology etc): Report Reviewed by me
Labs: Labs Reviewed by me
Old Records: Reviewed
[2024-08-08 17:25] LABS: Total Protein 6.1 g/dl (6.3-8.2)
[2024-08-08 17:36] LABS: LDH 260 U/L (120-246)
[2024-08-08] MEDS: LOVENOX 40 MG SC (18:26)
[2024-08-08] MEDS: LIPITOR 20 MG PO (18:26)
[2024-08-08] MEDS: STERILE WATER FOR INJECTION IV (18:27)
[2024-08-08 18:35] LABS: Reticulocyte Count 2.3 % (0.4-2.8)
[2024-08-08 18:43] LABS: Iron 53 ug/dl (49-181)
[2024-08-08 18:52] LABS: Percent Saturation 30 % (20-50); Total Iron Binding Capacity 174 ug/dl (261-462)
[2024-08-08 19:50] LABS: Folate 9.2 ng/ml (2.76-20); Vitamin B12 422 pg/ml (239-931)
[2024-08-08] MEDS: COREG 12.5 MG PO (19:51)
[2024-08-08] MEDS: TYLENOL 650 MG PO (19:51)
--- NOTE | 2024-08-08 21:38 | PTCARENOTE ---
Patient received at change of shift resting in the bed. Right sided chest tube assessed, dressing C/D/I, no crepitus, no tidaling noted, suction set to -20mmHg, sanguinous output noted. Patient endorses mild/mod pain at chest tube site, prn
acetaminophen given, see MAR. Patient was initially agitated regarding previous blood draws, stated he would not allow any more blood to be drawn but is otherwise cooperative with care. Oxygen saturation 95% on room air. Sinus rhythm on telemetry.
Plan of care discussed. Call adams within reach.
[2024-08-08 21:53] LABS: Glucose - Point of Care 207 mg/dl (70-99)
[2024-08-09 02:51] VITALS: BP 102/62
[2024-08-09] MEDS: UNASYN IV ×4 (02:51→20:08)
[2024-08-09 02:52] VITALS: BMI 32.7
[2024-08-09 03:26] LABS: Triglycerides 231 mg/dl (10-149)
[2024-08-09] MEDS: VANCOCIN 200 IV ×2 (05:06→17:58)
[2024-08-09 07:26] VITALS: BP 112/68
[2024-08-09 07:30] LABS: Glucose - Point of Care 189 mg/dl (70-99)
--- NOTE | 2024-08-09 09:17 | W.PN.HOSP.TC ---
Today's Communication/Plan
-
see bold
Assessment / Plan
Assessment / Plan
HPI: 68-year-old male with a past medical history of colon cancer status post resection, hypertension, hyperlipidemia, hypothyroidism, and DVT was transferred from [facility] for right-sided empyema and triple-vessel coronary artery
disease requiring CABG. Patient initially presented to [facility] on 08/04/24 for shortness of breath. He was found to have a right-sided empyema as well as an NSTEMI. He was temporarily on a heparin drip. Cardiac catheterization
showed triple-vessel coronary artery disease. He is currently on IV antibiotics for his empyema.
Currently, patient reports resolution of shortness of breath. He denies chest pain. His cough is improved. No fever, no headache, no lightheadedness, no dizziness. No dysuria, no black or bloody stools.
Assessment/plan:
# Right-sided empyema
Thoracentesis on drained 10 cc of bloody fluid
He was treated with IV Rocephin, IV azithromycin, and IV vancomycin
Appreciate pulmonology and IR, status post right-sided chest tube placement by IR on 08/08
Continue vancomycin and Unasyn as per ID, follow-up on cultures
#Non-ST elevation myocardial infarction
#Triple-vessel CAD
Cardiology following, patient was transferred from [facility] to [place] in anticipation of needing CABG
Cardiology recommends treatment of empyema first, then revascularization procedure down the line
Continue aspirin, statin, Coreg
#Acute kidney injury
Resolved, creatinine now normal
Monitor creatinine, no nephrotoxic drugs/NSAIDs
#Type 2 diabetes
Patient is on glipizide 10 mg twice a day, pioglitazone 50 mg daily [employer]
Patient's blood sugar has been on the lower side when on glipizide 10 mg twice a day
He states his oral intake is poor, continue glipizide 5 mg twice a day for now
Accu-Cheks, sliding scale insulin
#Essential hypertension
Amlodipine discontinued secondary to lower extremity edema
Monitor blood pressure for now
#Gout
Continue allopurinol
#Hypomagnesemia
Replete as needed
DVT prophylaxis�subcu Lovenox
Full code
Total time spent to see the patient on the floor, examine the patient, review data and lab results, discuss treatment plan with patient, nursing staff around 45 minutes.
Physical Exam
General: Obese, no acute distress
HEENT: Normocephalic, Atraumatic, EOMI, MMM
Respiratory: Right basilar crackles
Cardiac: Normal S1/S2, Regular Rate and Rhythm
GI: Soft, Nontender, Nondistended, Normal Bowel Sounds
Extremities: No Clubbing, Cyanosis
Severe bilateral lower extremity lymphedema noted
Neuro: Nonfocal/Grossly Intact
Psych: Calm, Cooperative
Anticipated Discharge: > 48 hours
Subjective/Interval History
-
Date of Service: August 09, 2024
Patient reports having pain at his right chest tube site. No shortness of breath. No nausea, no vomiting. No fever.
Objective Data
-
Vital Signs:
Vital Signs
Temp Pulse Resp BP Pulse Ox
98.1 F 81 18 112/68 97
08/09/24 07:37 08/09/24 07:26 08/09/24 07:37 08/09/24 07:26 08/09/24 07:37
I&O
08/08/24 08/09/24 08/10/24
06:59 06:59 06:59
Intake Total 450 / 450 1500 / 1500
Output Total 995 / 995
Balance 450 / 450 505 / 505
[2024-08-09] MEDS: LASIX 40 MG PO (09:20)
[2024-08-09] MEDS: ASPIR LOW (ENTERIC COATED) 81 MG PO (09:20)
[2024-08-09] MEDS: GLUCOTROL 5 MG PO ×2 (09:20→16:30)
[2024-08-09] MEDS: ROBITUSSIN 100 MG PO ×3 (09:20→22:22)
[2024-08-09] MEDS: ZYLOPRIM 300 MG PO (09:20)
--- NOTE | 2024-08-09 09:47 | PHA.VAN.FU ---
Vancomycin Assessment / Plan
- Assessment
Renal Function: No New Labs Today
In the past 24 hrs, patient has been: Afebrile
Concomitant Antimicrobials: AMPICILLIN/SULBACTAM
- Dosing Plan
Continue: VANCO 1000MG Q12H
- Monitoring Plan
Peak Level: 08/09 @2100
Trough Level: 08/10 @0530
- Follow Up
Pharmacy will continue to follow.
Vancomycin Follow UP
- -
Patient Age: 68
Patient Sex: Male
Vancomycin Day #: 3
Indication: Pulmonary/Respiratory
Requesting Provider: JUNO HELTON
Height / Weight:
Height 5 ft 10 in
Actual Weight 103.5 kg
- Vital Signs / Lab Results
Temp Pulse Resp BP Pulse Ox
98.1 F 81 18 112/68 97
08/09/24 07:37 08/09/24 07:26 08/09/24 07:37 08/09/24 07:26 08/09/24 07:37
Lab Results - Hematology
08/08/24
04:09
WBC 13.3 H
Lab Results - Chemistry
08/08/24
04:09
BUN 39 H
Creatinine 1.2
Estimated Creat Clear 72
Microbiology Results
08/08/24 14:02 Gram Stain - Preliminary
Pleural Fluid
--- NOTE | 2024-08-09 10:14 | W.PN.ID1 ---
Date of Service
Date of Service: August 09, 2024
Today's Communication
- agree with vancomycin and unasyn pending further data
- follow vancomycin levels closely - peak and troughs pending
- follow clinically
workup required interpretation of multiple lab results
Assessment / Plan
R Sided Empyema
Pulmonary HTN
CAD
- s/p chest tube placement
- exudative effusion
- body fluid gram stain here pending, at OSH notable for GPCs
- agree with repeat CT chest in several days
- chest tube management per pulmonary
- note consideration of possible decortication, eventual CABG
- vancomycin peak was not done last night
- agree with vancomycin and unasyn pending further data
- follow vancomycin levels closely - peak and troughs pending
- follow clinically
workup required interpretation of multiple lab results
Chief Complaint
-: Other (empyema)
Subjective / Review of Systems
afebrile
bp stable
'Im feeling better'
Vital Signs / Physical Exam
Vital Signs
Vital Signs
Temp Pulse Resp BP Pulse Ox
98.1 F 81 18 112/68 97
08/09/24 07:37 08/09/24 07:26 08/09/24 07:37 08/09/24 07:26 08/09/24 07:37
Physical Exam
Constitutional: No Acute Distress and Chronically Ill
Cardiovascular: Regular Rate and S1/S2; Negative Murmur or Rub
Pulmonary: Clear and Symmetric; Negative Wheezes or Rales
Gastrointestinal: Soft, Non Tender, Non Distended and Normal Bowel Sounds
Skin: Warm and Dry; Negative Rash or Jaundice
Lines: Other (chest tube - serosanguinous fluid)
Objective Data
Lab Data
Lab Results
08/08/24 04:09
08/08/24 04:09
Estimated Creat Clear 72 ml/min 08/08/24 04:09
Most recent labs reviewed.
Micro Results:
08/08/24 14:02 Body Fluid Culture - Pending
Pleural Fluid Gram Stain - Preliminary
08/08/24 15:18 Blood Culture - Pending
Blood/Venous
08/08/24 15:19 Blood Culture - Pending
Blood/Venous
[2024-08-09] MEDS: COREG 12.5 MG PO ×2 (10:22→20:08)
[2024-08-09] MEDS: NOVOLOG FLEXPEN-MODERATE RESISTANCE SC (10:27)
--- NOTE | 2024-08-09 10:43 | W.PN.CD ---
Addendum entered and electronically signed by Celso Fox MD 08/09/24 13:34:
I saw and examined the patient.
The GAS PUMP ATTENDANT's note was reviewed and I agree with the note.
Comment: He is feeling better, some pain the CT site, no cp or sob. He has increase lower extremity edema. on exam lung cta b/l, rrr, extremities without compression and has 2+le edema. Plan is for Dr Kebede to review cath films Sunday to decide
timing of intervention. Overall consensus is he had a Type II PR in the setting of acute illness(PNA/Empyema). Treatment of Empyema and PNA most clinically salient issue currently. Otherwise, recommend LILLIAN wraps of legs bl. Continue furosemide,
does not appear to have total body volume overload.
Will return to care on Sunday.
Original Note:
Today's Communication / Plan
-
-continue ASA, statin, BB
-follow tele and BP's
-further plan for CAD as below
Impression / Plan
-
Impression/Plan: 68 y/o male with HTN, HLD and NIDDM admitted to [facility] with SOB, found to have right sided PNA complicated by empyema and abnormal troponin, subsequently diagnosed with 3V CAD and transferred for further management.
#CAD/Troponin elevation
-Chronic, progressive.
-CAD is reportedly severe.
-He has no CP.
-Troponin peaked at 3995 at [facility] (DH equivalent of 3.995).
-Echo reportedly technically difficult, unable to assess RWMA, but LVEF preserved (50-55%).
-troponin elevation suspected to be a type II event and not acute coronary syndrome
-Continue ASA, statin, BB.
-Dr. Kebede spoke to Dr. Burns, the lottery sales clerk who performed the coronary angiogram. Based on the patient's troponin pattern and his coronary artery disease, they agreed that this event is NOT ACS, but rather a type 2 event.
Accordingly, event to be managed medically and efforts are focused on his PNA/empyema. After this is definitively managed, we can consider elective revascularization (surgical, percutaneous, hybrid). Dr. Kebede to ask [facility] to send a engineer byproduct with a
copy of the patient's films on Sunday. Ideally, we will let the patient recover from his PNA and allow him to get full revascularization and avoid worsening hemoptysis from required DAPT for PCI.
#PNA/Empyema
-Pleural fluid positive for GPC's (08/05/2024).
-Chest tube placed with chemical decortication (tPA).
-Continue ABX per ID.
-Cx data pending.
#LE wound
-Unclear duration.
-Wound care consulted.
#Anemia:
-Unclear duration.
-further testing ordered
-management per primary
#HTN:
-Chronic, stable.
-Continue medical therapy and monitor.
#Dyslipidemia
-Chronic, stable.
-LDL 51 at [facility].
-Continue statin.
#DM
-Chronic, mildly uncontrolled.
-HbA1c = 7.2%.
-Management per primary team.
LE edema:
-continue lasix
Subjective/Interval History:
Denies CP, sitting OOB to chair, has two friends with him. He is in good spirits.
Data:
[facility] Echo, 05/13/2024:
CONCLUSIONS
Technically limited and suboptimal study.
Grossly normal chamber size.
Grossly normal left and right ventricular systolic function.
Grade 1 diastolic dysfunction.
Trivial mitral, tricuspid and pulmonic insufficiency.
Cardiac Catheterization 08/06/24:
Severe triple vessel CAD (details in physical chart).
Chest Tube Placement, 08/08/2024:
IMPRESSION:
1. Successful ultrasound and fluoroscopically guided placement of a right chest tube, yielding 30 mL of dark serous nonpurulent fluid.
2. TPA and dornase were then infused into the chest tube immediately following placement (please see separate report).
Physical Exam
Vital Signs/Labs
Vital Signs
Temp Pulse Resp BP Pulse Ox
98.1 F 81 18 112/68 97
08/09/24 07:37 08/09/24 07:26 08/09/24 07:37 08/09/24 07:26 08/09/24 07:37
08/08/24 08/09/24 08/10/24
06:59 06:59 06:59
Actual Weight 103.3 kg 103.5 kg
08/08/24 04:09
08/08/24 04:09
Magnesium 1.5 mg/dl (1.6-2.3) L 08/08/24 04:09
Triglycerides 231 mg/dl (10-149) H 08/09/24 02:51
08/08/24
04:09
Ond-C-Iidzlgoplbz Pept 1500
Physical Exam
Constitutional: No acute distress
EENT: Anicteric
Cardiovascular: Rhythm & rate is regular and Pedal edema present
Respiratory: Respiratory effort normal, Lungs clear to auscul. and Other (CT in place)
Neuro/Psych: AO x 3
Data Reviewed
-
Date of Service: August 09, 2024
EKG: Other (tele SR)
Labs: Labs Reviewed by me
--- NOTE | 2024-08-09 10:46 | PTCARENOTE ---
Received patient this morning sitting oob in the chair. Feels more comfortable, states he has been sleeping in a chair at home for over a year due to his breathing and cough. R CT to 20cm suction, no air leak noted. Offered tylenol or oxycodone for
severe pain at the CT but the patient declined. Refusing any breakfast this morning. States he cannot take coreg on an empty stomach, agreeable to eating some derrick crackers and a banana with his meds.
[2024-08-09 11:34] VITALS: BP 125/69
--- NOTE | 2024-08-09 12:41 | W.PN.PUL3 ---
Today's Communication / Plan
-
Doing well post chest tube placement and tpa/dornase
Continue to monitor output, still too high for clamping
Continue abx per team, ID following
Will eventually need CT chest for further eval, but can wait next 24-48 hours for better clearance
Reviewed plan of care with patient
Assessment
-
68-year-old male with a past medical history of colon cancer status post resection, hypertension, hyperlipidemia, hypothyroidism, and DVT (25 years ago) was transferred from [facility] for right-sided empyema and triple-vessel coronary
artery disease for consideration of IR guided drainage and CABG. Patient reports cough and flu like symptoms few weeks ago which were managed conservatively first, and later with Z-Pack and a short of course of steroids. His symptoms however
persisted, and he started having trace hemoptysis along with shortness of breath. He presented to ED at [facility] and was noted to have right sided pneumonia with loculated pleural effusion. During his stay there, he was also noted to have
elevated Troponin, and was diagnosed with NSTEMI, subsequent cardiac cath showed multivessel disease. He also had IR guided thoracentesis with 10 ml of sanguinous fluid which was noted to be exudate with elevated LDH, and subsequent gram stain was
positive for Gram positive cocci, suggestive of empyema. Pulmonary consult was requested for further recommendations regarding empyema. We are consulted for evaluation.
Right lung consolidation with Empyema s/p chest tube
s/p tpa/dornase 08/08
Hemoptysis
Dyspnea
NSTEMI
Mild Pulmonary HTN
Other medical diagnoses:
-HTN
-HLD
-DM
-h/o Gout
-?Lymphedema both lower extremities
Plan
Empyema, s/p chest tube 08/08
Pleural fluid Gram stain positive for GPC. Bedside POCUS performed (08/07) and showed loculated pleural effusion with extensive phlegmon.
Small volume fluid visualized. 08/05, Pleural fluid LDH 1569, Fluid triglycerides 202, pH 7.28
s/p tPA/DNAse
Monitor output, still 595mL past 24 hours
Continue Vancomycin and Unasyn, ID consult
Await final cultures of pleural fluid--no growth
Pleural fluid triglyceride >110 (202 on 07/2024). Output is pink/serosanguineous, chylous unlikely
Will obtain CT chest after pleural drainage, after 3-4 days of IV antibiotics and tPA/DNAse. Consider repeat dosing in next 24-48 hours.
May need Thoracic surgery input if not improving
Suspect related to right lung consolidation. Resolved. Patient has never smoked. No PE noted on CTA on 08/04/[address] chest for further evaluation after pleural drainage and treatment of pneumonia to evaluate for any parenchymal lesion, specially with h/o colon cancer.
Can obtain in next 24-48 hours
Currently saturating well on room air
Continue Vancomycin and Unasyn, await final cultures
Patient tolerated ASA and Heparin infusion without any worsening hemoptysis prior to transfer
Due to Pneumonia, empyema and CAD
Clinically improving. Cough significantly improved, denies SOB
Patient has never smoked, no known h/o COPD/Asthma. D/c Spiriva and Symbicort
History of triple vessel CAD
LE edema at baseline, resume home meds/lasix
ASA, Statins, Coreg
Currently chest pain free
Cardiology service on case.
RHC on 07/2024 showed mean PAP 22 with PVR 1.7. PCWP 9.
Patient will need sleep study as out patient as high pre-test probability of underlying sleep disordered breathing
Will arrange out patient follow up with Pulmonary clinic
Chronic pedal edema. Patient reports long standing edema. ?lymphedema vs medication related. PCWP normal
D/c Norvasc, can cause pedal edema
On Lasix currently
Records from outside facility reviewed.
OP Pulm FU recommended
Pulmonary team will continue to follow
Data:
ECHO 04/2024: Technically limited and suboptimal study. Grossly normal chamber size. Grossly normal left and right ventricular systolic function. Grade 1 diastolic dysfunction. Trivial mitral, tricuspid and pulmonic insufficiency.
ECHO 07/2024: Grade I diastolic dysfunction, LVEF 50-55%, mildly elevated Pulm artery pressure, [address] Chest 08/04/2024: No PE noted. Loculated pleural effusion on right. No Lymphadenopathy
Cardiac Cath 08/06: Severe Tripple vessel CAD
RHC 07/2024: PA 38/15 with mean of 22; PCWP 9, Cardiac output 7.3 with CI 3.36, PVR 1.7
Total time spent on this consultation/encounter _52__ minutes which includes review of history, physical exam, medications, laboratory data, personal review of imaging, extensive review of outpatient records, discussion with care team and
respiratory therapy.
Subjective Data
-
Date of Service:
Date of Service: August 09, 2024
Chief Complaint: Pulmonary Follow Up
Subjective:
Remains with chest tube in place
Discomfort at insertion site but otherwise feels good
No SOB
Objective Data
Data Reviewed
Vital Signs / I&O / Oxygen:
Vital Signs
Temp Pulse Resp BP Pulse Ox
98.0 F 85 18 125/69 95
08/09/24 11:35 08/09/24 11:34 08/09/24 11:35 08/09/24 11:34 08/09/24 11:35
Intake and Output
08/08/24 08/09/24 08/10/24
06:59 06:59 06:59
Intake Total 450 / 450 1500 / 1500 360 / 360
Output Total 995 / 995 300 / 300
Balance 450 / 450 505 / 505 60 / 60
SaO2 95
Nasal Cannula flow liters per 2
minute
Physical Exam
General: Comfortable and Other (NAD)
HEENT: Normocephalic, Anicteric and Moist Mucous Membranes
Cardiovascular: S1-S2, Regular Rhythm and Peripheral Edema (bilateral, 3+, baseline)
Respiratory: Clear, Chest Tube and Other (Somewhat decreased air entry in the right lower lobe)
GI: Soft, Non Distended and Non Tender
Neurology: Awake, Alert, Oriented and No Motor Deficits
Skin: Warm, Dry and Good Color
Labs/Micro/Reports
Lab Data
08/08/24 04:09
08/08/24 04:09
Microbiology
08/08/24 14:02 Pleural Fluid Body Fluid Culture - Preliminary
No Growth After 18-24 Hours
08/08/24 14:02 Pleural Fluid Gram Stain - Preliminary
[2024-08-09] MEDS: TYLENOL 650 MG PO ×2 (13:05→20:53)
[2024-08-09 14:24] LABS: Glucose - Point of Care 206 mg/dl (70-99)
[2024-08-09] MEDS: NOVOLOG FLEXPEN-MODERATE RESISTANCE 3 UNITS SC (14:24)
[2024-08-09 14:47] VITALS: BP 111/59
[2024-08-09 16:12] LABS: Glucose - Point of Care 253 mg/dl (70-99)
[2024-08-09] MEDS: STERILE WATER FOR INJECTION IV (16:19)
[2024-08-09] MEDS: NOVOLOG FLEXPEN-MODERATE RESISTANCE 5 UNITS SC (16:29)
[2024-08-09] MEDS: LOVENOX 40 MG SC (17:57)
[2024-08-09] MEDS: LIPITOR 20 MG PO (17:57)
[2024-08-09] MEDS: FLUSH (NSS) 1 FLUSH IV (17:58)
[2024-08-09 19:34] VITALS: BP 130/64
[2024-08-09 20:28] LABS: Glucose - Point of Care 162 mg/dl (70-99)
[2024-08-09 21:15] LABS: Vancomycin Peak 34.9 ug/ml (18-26)
[2024-08-09 22:16] VITALS: BP 135/73
--- NOTE | 2024-08-09 23:20 | PTCARENOTE ---
Pt. remains NSR on the monitor. Right lateral chest tube to -20 cm wall/H20 suction; dressing CDI without crepitus or air leak assessed, draining very small amount SS fluid. Lungs diminished (right greater than left), pulse ox on RA mid to high
90's. Medicated with Tylenol for CT insertion site discomfort with adequate relief obtained, Robitussin given for frequent dry cough. Pt. pleasant, sitting OOB in chair at this time.
[2024-08-10 02:54] VITALS: BP 126/70
[2024-08-10] MEDS: UNASYN IV ×4 (02:57→20:16)
[2024-08-10 04:18] VITALS: BMI 32.9
[2024-08-10 05:38] LABS: Hematocrit 26.7 % (39.0-52.0); Hemoglobin 8.8 g/dL (13.0-18.0); Mean Corpuscular Hgb 34.8 pg (27.0-31.0); Mean Corpuscular Volume 105.5 fL (80.0-94.0); Mean Platelet Volume 11.2 fL (7.4-10.4); Platelet Count 270 10^3/uL (130-400); Red Blood Cell Count 2.53 10^6/uL (4.70-6.10); Red Cell Dist. Width 14.9 % (11.5-14.5); White Blood Cell Count 11.4 10^3/uL (4.8-10.8)
[2024-08-10 05:49] LABS: Vancomycin Trough 27.2 ug/ml (5-20)
--- NOTE | 2024-08-10 05:53 | PTCARENOTE ---
Vanco trough level of 27.2 reported to pharmacy. Per pharmacist hold 0600 dose today, further dosing to be determined later this morning.
[2024-08-10 05:54] LABS: Blood Urea Nitrogen 36 mg/dl (9-20); Calcium 8.5 mg/dl (8.4-10.2); Carbon Dioxide 25 mmol/L (22-30); Chloride 109 mmol/L (98-107); Estimated Creatinine Clearance 79 ml/min; Glucose 114 mg/dl (70-99); Magnesium 1.7 mg/dl (1.6-2.3); Potassium 4.3 mmol/L (3.5-5.1); Sodium 141 mmol/L (135-145); eGFR > 60.00
[2024-08-10 08:07] VITALS: BP 146/75
--- NOTE | 2024-08-10 08:09 | W.PN.HOSP.TC ---
Today's Communication/Plan
-
see bold
Assessment / Plan
Assessment / Plan
HPI: 68-year-old male with a past medical history of colon cancer status post resection, hypertension, hyperlipidemia, hypothyroidism, and DVT was transferred from [facility] for right-sided empyema and triple-vessel coronary artery
disease requiring CABG. Patient initially presented to [facility] on 08/04/24 for shortness of breath. He was found to have a right-sided empyema as well as an NSTEMI. He was temporarily on a heparin drip. Cardiac catheterization
showed triple-vessel coronary artery disease. He is currently on IV antibiotics for his empyema.
Currently, patient reports resolution of shortness of breath. He denies chest pain. His cough is improved. No fever, no headache, no lightheadedness, no dizziness. No dysuria, no black or bloody stools.
Assessment/plan:
# Right-sided empyema
Thoracentesis on drained 10 cc of bloody fluid
He was treated with IV Rocephin, IV azithromycin, and IV vancomycin at [facility]
Appreciate pulmonology and IR, status post right-sided chest tube placement by IR on 08/08
Continue vancomycin and Unasyn as per ID, follow-up on cultures
Pulmonology recommends chest CT in the morning
#Non-ST elevation myocardial infarction
#Triple-vessel CAD
Cardiology following, patient was transferred from [facility] to [place] in anticipation of needing CABG
Cardiology recommends treatment of empyema first, then revascularization procedure down the line
Continue aspirin, statin, Coreg
#Chronic lymphedema
Continue Faizan compression
#Acute kidney injury
Resolved, creatinine now normal
Monitor creatinine, no nephrotoxic drugs/NSAIDs
#Type 2 diabetes
Patient is on glipizide 10 mg twice a day, pioglitazone 50 mg daily [employer]
Increase glipizide back to home dose - 10 mg twice a day, hold pioglitazone
Accu-Cheks, sliding scale insulin
#Essential hypertension
Amlodipine discontinued secondary to lower extremity edema
Monitor blood pressure for now
#Gout
Continue allopurinol
#Hypomagnesemia
Replete as needed
DVT prophylaxis�subcu Lovenox
Full code
Total time spent to see the patient on the floor, examine the patient, review data and lab results, discuss treatment plan with patient, nursing staff around 45 minutes.
Physical Exam
General: Obese, no acute distress
HEENT: Normocephalic, Atraumatic, EOMI, MMM
Respiratory: Right basilar crackles
Cardiac: Normal S1/S2, Regular Rate and Rhythm
GI: Soft, Nontender, Nondistended, Normal Bowel Sounds
Extremities: No Clubbing, Cyanosis
Severe bilateral lower extremity lymphedema noted
Neuro: Nonfocal/Grossly Intact
Psych: Calm, Cooperative
Anticipated Discharge: > 48 hours
Subjective/Interval History
-
Date of Service: August 10, 2024
Patient's right-sided chest pain from the chest tube site is improved. Has mild coughing intermittently. Denies chest pain, no fever, no vomiting.
Objective Data
-
Labs:
Laboratory Results
08/10/24
05:15
WBC 11.4 H
Hgb 8.8 L
Hct 26.7 L
Plt Count 270
Sodium 141
Potassium 4.3
Chloride 109 H
Carbon Dioxide 25
BUN 36 H
Creatinine 1.1
Glucose 114 H
Calcium 8.5
Vital Signs:
Vital Signs
Temp Pulse Resp BP Pulse Ox
98.9 F 81 20 126/70 97
08/10/24 08:06 08/10/24 02:54 08/10/24 08:06 08/10/24 02:54 08/10/24 08:06
I&O
08/09/24 08/10/24 08/11/24
06:59 06:59 06:59
Intake Total 1500 / 1500 1760 / 1760
Output Total 995 / 995 1130 / 1130
Balance 505 / 505 630 / 630
[2024-08-10] MEDS: GLUCOTROL PO (08:34)
--- NOTE | 2024-08-10 09:12 | W.PN.ID1 ---
Date of Service
Date of Service: August 10, 2024
Today's Communication
- will continue with vancomycin and unasyn pending further data
- follow vancomycin levels closely
Assessment / Plan
R Sided Empyema
Pulmonary HTN
CAD
- s/p chest tube placement
- exudative effusion
- body fluid gram stain here negative and culture no growth to date, spoke with [facility] lab regarding their pleural fluid culture - only positive thus far is the gram stain - no ID or sensitives yet. Will also request the formal report
- agree with repeat CT chest in several days
- chest tube management per pulmonary
- note consideration of possible decortication, eventual CABG
- vancomycin peak and trough elevated - agree with holding vancomycin today - level is mildly supratherapeutic
- will continue with vancomycin and unasyn pending further data
- follow vancomycin levels closely
- follow clinically
workup required interpretation of multiple lab results and coordination of care with microbiology lab at [facility]
Chief Complaint
-: Other (empyema)
Subjective / Review of Systems
afebrile
bp stable
tolerating current therapies
Vital Signs / Physical Exam
Vital Signs
Vital Signs
Temp Pulse Resp BP Pulse Ox
98.9 F 88 20 146/75 97
08/10/24 08:06 08/10/24 08:07 08/10/24 08:06 08/10/24 08:07 08/10/24 08:07
Physical Exam
Constitutional: No Acute Distress
Cardiovascular: Regular Rate and S1/S2; Negative Murmur or Rub
Pulmonary: Clear and Symmetric; Negative Wheezes or Rales
Gastrointestinal: Soft, Non Tender, Non Distended and Normal Bowel Sounds
Skin: Warm and Dry; Negative Rash or Jaundice
Lines: Other (chest tube)
Objective Data
Lab Data
Lab Results
08/10/24 05:15
08/10/24 05:15
Estimated Creat Clear 79 ml/min 08/10/24 05:15
Most recent labs reviewed.
Micro Results:
08/10/24 08:40 Nasal Screen MRSA (PCR) - Pending
Nose
08/08/24 15:18 Blood Culture - Preliminary
Blood/Venous No Growth in 24 hours- Final report to follow
08/08/24 15:19 Blood Culture - Preliminary
Blood/Venous No Growth in 24 hours- Final report to follow
08/08/24 14:02 Body Fluid Culture - Preliminary
Pleural Fluid No Growth After 18-24 Hours
Gram Stain - Preliminary
[2024-08-10 09:13] LABS: Glucose - Point of Care 118 mg/dl (70-99)
[2024-08-10] MEDS: NOVOLOG FLEXPEN-MODERATE RESISTANCE SC (09:23)
[2024-08-10] MEDS: ASPIR LOW (ENTERIC COATED) 81 MG PO (09:26)
[2024-08-10] MEDS: LASIX 40 MG PO (09:26)
[2024-08-10] MEDS: COREG 12.5 MG PO ×2 (09:26→20:15)
[2024-08-10] MEDS: FLUSH (NSS) 2 FLUSH IV (09:27)
[2024-08-10] MEDS: ZYLOPRIM 300 MG PO (09:27)
[2024-08-10] MEDS: TYLENOL 650 MG PO (09:27)
[2024-08-10] MEDS: GLUCOTROL 10 MG PO ×2 (09:27→18:30)
--- NOTE | 2024-08-10 09:32 | PHA.VAN.FU ---
Vancomycin Assessment / Plan
- Assessment
Renal Function: SCR Decreasing
WBC's are: Trending Down
In the past 24 hrs, patient has been: Afebrile
Concomitant Antimicrobials: AMPICILLIN/SULBACTAM
- Assessment - Therapeutic Drug Monitoring
Extrapolated Cmax (mcg/mL): 36.7
Peak level was drawn: Appropriately
Extrapolated Cmin (mcg/mL): 26.6
Trough Drawn: Appropriately
Levels were drawn: At steady state
Calculated AUC (mcg*h/mL): 754
Calculated ke: 0.0292
Calculated half life (H): 23.7
Calculated Vd (L): 90.74
Calculated Vanc CL (ml/min): 44.18
- Dosing Plan
Dosing by Level: Hold off on dosing today (CONSIDER NEW REGIMEN 1000MG Q24H (AUC 383, CMAX 21.9, CMIN 11.2))
- Follow Up
Pharmacy will continue to follow.
Vancomycin Follow UP
- -
Patient Age: 68
Patient Sex: Male
Vancomycin Day #: 3
Indication: Pulmonary/Respiratory
Requesting Provider: JUNO HELTON
Height / Weight:
Height 5 ft 10 in
Actual Weight 104.1 kg
- Vital Signs / Lab Results
Temp Pulse Resp BP Pulse Ox
98.9 F 88 20 146/75 97
08/10/24 08:06 08/10/24 08:07 08/10/24 08:06 08/10/24 08:07 08/10/24 08:07
Lab Results - Hematology
08/08/24 08/10/24
04:09 05:15
WBC 13.3 H 11.4 H
Lab Results - Chemistry
08/08/24 08/10/24
04:09 05:15
BUN 39 H 36 H
Creatinine 1.2 1.1
Estimated Creat Clear 72 79
Microbiology Results
08/08/24 15:18 Blood Culture - Preliminary
Blood/Venous No Growth in 24 hours- Final report to follow
08/08/24 15:19 Blood Culture - Preliminary
Blood/Venous No Growth in 24 hours- Final report to follow
08/08/24 14:02 Body Fluid Culture - Preliminary
Pleural Fluid No Growth After 18-24 Hours
Gram Stain - Preliminary
Therapeutic Drug Monitoring
Vancomycin Peak 34.9 ug/ml (18-26) H 08/09/24 20:43
Vancomycin Trough 27.2 ug/ml (5-20) H* 08/10/24 05:15
--- NOTE | 2024-08-10 10:05 | W.PN.PUL3 ---
Today's Communication / Plan
-
Output decreased overnight to 5mL, continue to monitor output next [address] Chest in AM, if fluid appears minimal can consider d/c
Encouraged OOB, PT otherwise
Reviewed plan with patient today
Assessment
-
68-year-old male with a past medical history of colon cancer status post resection, hypertension, hyperlipidemia, hypothyroidism, and DVT (25 years ago) was transferred from [facility] for right-sided empyema and triple-vessel coronary
artery disease for consideration of IR guided drainage and CABG. Patient reports cough and flu like symptoms few weeks ago which were managed conservatively first, and later with Z-Pack and a short of course of steroids. His symptoms however
persisted, and he started having trace hemoptysis along with shortness of breath. He presented to ED at [facility] and was noted to have right sided pneumonia with loculated pleural effusion. During his stay there, he was also noted to have
elevated Troponin, and was diagnosed with NSTEMI, subsequent cardiac cath showed multivessel disease. He also had IR guided thoracentesis with 10 ml of sanguinous fluid which was noted to be exudate with elevated LDH, and subsequent gram stain was
positive for Gram positive cocci, suggestive of empyema. Pulmonary consult was requested for further recommendations regarding empyema. We are consulted for evaluation.
Right lung consolidation with Empyema s/p chest tube
s/p tpa/dornase 08/08
Hemoptysis
Dyspnea
NSTEMI
Mild Pulmonary HTN
Other medical diagnoses:
-HTN
-HLD
-DM
-h/o Gout
-?Lymphedema both lower extremities
Plan
Empyema, s/p chest tube 08/08
Pleural fluid Gram stain positive for GPC. Bedside POCUS performed (08/07) and showed loculated pleural effusion with extensive phlegmon.
Small volume fluid visualized. 08/05, Pleural fluid LDH 1569, Fluid triglycerides 202, pH 7.28
s/p tPA/DNAse
Monitor output, 595mL noted prior, past 24 hours about 5mL
Would monitor another day
Continue Vancomycin and Unasyn, ID consult
Await final cultures of pleural fluid--no growth
Pleural fluid triglyceride >110 (202 on 07/2024). Output is pink/serosanguineous, chylous unlikely
Will obtain CT chest after pleural drainage, after 3-4 days of IV antibiotics and tPA/DNAse. Consider repeat dosing in next 24-48 hours.
May need Thoracic surgery input if not improving
Suspect related to right lung consolidation. Resolved. Patient has never smoked. No PE noted on CTA on 08/04/[address] chest for further evaluation after pleural drainage and treatment of pneumonia to evaluate for any parenchymal lesion, specially with h/o colon cancer.
Will obtain imaging in AM
Currently saturating well on room air
Continue Vancomycin and Unasyn, await final cultures
Patient tolerated ASA and Heparin infusion without any worsening hemoptysis prior to transfer
Due to Pneumonia, empyema and CAD
Clinically improving. Cough significantly improved, denies SOB
Patient has never smoked, no known h/o COPD/Asthma. D/c Spiriva and Symbicort
History of triple vessel CAD
LE edema at baseline, resume home meds/lasix
ASA, Statins, Coreg
Currently chest pain free
Cardiology service on case.
RHC on 07/2024 showed mean PAP 22 with PVR 1.7. PCWP 9.
Patient will need sleep study as out patient as high pre-test probability of underlying sleep disordered breathing
Will arrange out patient follow up with Pulmonary clinic
Chronic pedal edema. Patient reports long standing edema. ?lymphedema vs medication related. PCWP normal
D/c Norvasc, can cause pedal edema
On Lasix currently
Records from outside facility reviewed.
OP Pulm FU recommended
Pulmonary team will continue to follow
Data:
ECHO 04/2024: Technically limited and suboptimal study. Grossly normal chamber size. Grossly normal left and right ventricular systolic function. Grade 1 diastolic dysfunction. Trivial mitral, tricuspid and pulmonic insufficiency.
ECHO 07/2024: Grade I diastolic dysfunction, LVEF 50-55%, mildly elevated Pulm artery pressure, [address] Chest 08/04/2024: No PE noted. Loculated pleural effusion on right. No Lymphadenopathy
Cardiac Cath 08/06: Severe Tripple vessel CAD
RHC 07/2024: PA 38/15 with mean of 22; PCWP 9, Cardiac output 7.3 with CI 3.36, PVR 1.7
Total time spent on this consultation/encounter _52__ minutes which includes review of history, physical exam, medications, laboratory data, personal review of imaging, extensive review of outpatient records, discussion with care team and
respiratory therapy.
Subjective Data
-
Date of Service:
Date of Service: August 10, 2024
Chief Complaint: Pulmonary Follow Up
Subjective:
Output decreased overnight, he feels no new complaints
Stable on RA
Objective Data
Data Reviewed
Vital Signs / I&O / Oxygen:
Vital Signs
Temp Pulse Resp BP Pulse Ox
98.9 F 88 20 146/75 97
08/10/24 08:06 08/10/24 08:07 08/10/24 08:06 08/10/24 08:07 08/10/24 08:07
Intake and Output
08/09/24 08/10/24 08/11/24
06:59 06:59 06:59
Intake Total 1500 / 1500 1760 / 1760
Output Total 995 / 995 1130 / 1130
Balance 505 / 505 630 / 630
SaO2 97
Nasal Cannula flow liters per 2
minute
Physical Exam
General: Comfortable and Other (NAD)
HEENT: Normocephalic, Anicteric and Moist Mucous Membranes
Cardiovascular: S1-S2, Regular Rhythm and Peripheral Edema (bilateral, 3+, baseline)
Respiratory: Clear, Chest Tube and Other (Somewhat decreased air entry in the right lower lobe)
GI: Soft, Non Distended and Non Tender
Neurology: Awake, Alert, Oriented and No Motor Deficits
Skin: Warm, Dry and Good Color
Labs/Micro/Reports
Lab Data
08/10/24 05:15
08/10/24 05:15
Microbiology
08/08/24 15:18 Blood/Venous Blood Culture - Preliminary
No Growth in 24 hours- Final report to follow
08/08/24 15:19 Blood/Venous Blood Culture - Preliminary
No Growth in 24 hours- Final report to follow
08/08/24 14:02 Pleural Fluid Body Fluid Culture - Preliminary
No Growth After 18-24 Hours
08/08/24 14:02 Pleural Fluid Gram Stain - Preliminary
--- NOTE | 2024-08-10 10:26 | PTCARENOTE ---
Received patient this morning oob in the chair sleeping. R CT to -20cm wall suction, no drainage from previous shift. Patient medicated now for 8/[address] and is resting back in the bed.
[2024-08-10 12:06] VITALS: BP 130/70
[2024-08-10 12:32] LABS: Glucose - Point of Care 173 mg/dl (70-99)
[2024-08-10] MEDS: NOVOLOG FLEXPEN-MODERATE RESISTANCE 1 UNITS SC (12:40)
[2024-08-10 16:50] VITALS: BP 135/75
[2024-08-10] MEDS: ROBITUSSIN 100 MG PO ×2 (17:55→23:09)
[2024-08-10 18:29] LABS: Glucose - Point of Care 209 mg/dl (70-99)
[2024-08-10] MEDS: NOVOLOG FLEXPEN-MODERATE RESISTANCE 3 UNITS SC (18:29)
[2024-08-10] MEDS: LIPITOR 20 MG PO (18:30)
[2024-08-10] MEDS: LOVENOX 40 MG SC (18:30)
[2024-08-10] MEDS: STERILE WATER FOR INJECTION IV (18:31)
[2024-08-10 18:48] VITALS: BP 135/72
[2024-08-10 21:56] LABS: Glucose - Point of Care 132 mg/dl (70-99)
[2024-08-10 21:58] VITALS: BP 135/76
[2024-08-11] VITALS (7 sets, daily range): BP systolic 128–163; BP diastolic 71–85; BMI 32.8
[2024-08-11] MEDS: TYLENOL 1000 MG PO ×3 (00:03→22:31)
[2024-08-11] MEDS: UNASYN IV ×4 (03:05→19:59)
[2024-08-11 05:05] LABS: Hematocrit 23.9 % (39.0-52.0); Hemoglobin 7.9 g/dL (13.0-18.0); Mean Corp Hgb Conc. 33.1 g/dL (33.0-37.0); Mean Corpuscular Hgb 34.8 pg (27.0-31.0); Mean Corpuscular Volume 105.3 fL (80.0-94.0); Mean Platelet Volume 11.2 fL (7.4-10.4); Platelet Count 233 10^3/uL (130-400); Red Blood Cell Count 2.27 10^6/uL (4.70-6.10); Red Cell Dist. Width 14.9 % (11.5-14.5); White Blood Cell Count 10.3 10^3/uL (4.8-10.8)
[2024-08-11 05:34] LABS: Blood Urea Nitrogen 29 mg/dl (9-20); Calcium 8.2 mg/dl (8.4-10.2); Carbon Dioxide 25 mmol/L (22-30); Chloride 109 mmol/L (98-107); Estimated Creatinine Clearance 87 ml/min; Glucose 80 mg/dl (70-99); Sodium 141 mmol/L (135-145); eGFR > 60.00
[2024-08-11 05:39] LABS: Vancomycin Random 13.6 ug/ml
--- NOTE | 2024-08-11 07:56 | W.PN.CD ---
Today's Communication / Plan
-
Awaiting films
Cont cardiac meds: BP elevated today likely awaitng meds well controlled other cohen
Impression / Plan
-
Impression/Plan: 68 y/o male with HTN, HLD and NIDDM admitted to [facility] with SOB, found to have right sided PNA complicated by empyema and abnormal troponin, subsequently diagnosed with 3V CAD and transferred for further management.
#CAD/Troponin elevation
-Chronic, progressive.
-CAD is reportedly severe.
-He has no CP.
-Troponin peaked at 3995 at [facility] (DH equivalent of 3.995).
-Echo reportedly technically difficult, unable to assess RWMA, but LVEF preserved (50-55%).
-troponin elevation suspected to be a type II event and not acute coronary syndrome
-Continue ASA, statin, BB.
-Dr. Kebede spoke to Dr. Burns( call box wirer at [facility]) Based on the patient's troponin pattern and his coronary artery disease, they agreed that this event is NOT ACS, but rather a type 2 event to be managed medically. Once PNA/empyema
definitively managed will discuss revasc either surgical/PCI/hybrid? Awaiting wire twister with a copy of the patient's films, hopeful today. Ideally, we will let the patient recover from his PNA and allow him to get full revascularization and avoid
worsening hemoptysis from required DAPT for PCI.
#PNA/Empyema
-Pleural fluid positive for GPC's (08/05/2024).
-Chest tube placed with chemical decortication (tPA).
-Continue ABX per ID.
-Cx data pending.
- CT today August 11
#LE wound
-Unclear duration.
-Wound care consulted.
# b/l LE edema
- chronic stable tells me they look normal for him
#Anemia:
-Unclear duration.
-further testing ordered
-management per primary
#HTN:
-Chronic, stable.
-Continue medical therapy and monitor.
#Dyslipidemia
-Chronic, stable.
-LDL 51 at [facility].
-Continue statin.
#DM
-Chronic, mildly uncontrolled.
-HbA1c = 7.2%.
-Management per primary team.
LE edema:
-continue lasix
Subjective/Interval History:
Feels improved cough much improved
Data:
HR Echo, 05/13/2024:
CONCLUSIONS
Technically limited and suboptimal study.
Grossly normal chamber size.
Grossly normal left and right ventricular systolic function.
Grade 1 diastolic dysfunction.
Trivial mitral, tricuspid and pulmonic insufficiency.
Cardiac Catheterization 08/06/24:
Severe triple vessel CAD (details in physical chart).
Chest Tube Placement, 08/08/2024:
IMPRESSION:
1. Successful ultrasound and fluoroscopically guided placement of a right chest tube, yielding 30 mL of dark serous nonpurulent fluid.
2. TPA and dornase were then infused into the chest tube immediately following placement (please see separate report).
Physical Exam
Vital Signs/Labs
Vital Signs
Temp Pulse Resp BP Pulse Ox
98.1 F 91 18 163/85 97
08/11/24 07:22 08/11/24 07:20 08/11/24 07:22 08/11/24 07:20 08/11/24 07:22
08/10/24 08/11/24 08/12/24
06:59 06:59 06:59
Actual Weight 229 lb 8.019 oz
08/11/24 04:36
08/11/24 04:36
Magnesium 1.7 mg/dl (1.6-2.3) 08/10/24 05:15
Triglycerides 231 mg/dl (10-149) H 08/09/24 02:51
08/08/24
04:09
Gdx-Y-Azjyvqoakpo Pept 1500
Physical Exam
Constitutional: No acute distress and Comfortable
EENT: Anicteric
Cardiovascular: Rhythm & rate is regular and Pedal edema present
Respiratory: Respiratory effort normal and Lungs clear to auscul.
GI: Soft
Neuro/Psych: AO x 3
Data Reviewed
-
Date of Service: August 11, 2024
EKG: Tracing Personally Visualized and interpreted (sr)
Echo: Report Reviewed by me
Labs: Labs Reviewed by me
[2024-08-11 08:05] LABS: Glucose - Point of Care 84 mg/dl (70-99)
[2024-08-11] MEDS: NOVOLOG FLEXPEN-MODERATE RESISTANCE SC ×2 (08:57→13:08)
[2024-08-11] MEDS: ASPIR LOW (ENTERIC COATED) 81 MG PO (08:57)
[2024-08-11] MEDS: GLUCOTROL 10 MG PO ×2 (08:58→17:37)
[2024-08-11] MEDS: COREG 12.5 MG PO ×2 (08:58→19:59)
[2024-08-11] MEDS: LASIX 40 MG PO (08:58)
[2024-08-11] MEDS: ZYLOPRIM 300 MG PO (08:59)
[2024-08-11] MEDS: FLUSH (NSS) 1 FLUSH IV (08:59)
--- NOTE | 2024-08-11 09:26 | PTCARENOTE ---
Received patient this morning resting in bed with right CT to -20cm suction. Patient disconnected from wall suction and was sent for his CT of the chest. Patient now back from testing and placed back on -20cm suction, no drainage overnight,
posterior chest tube dressing is dry and intact. Call adams in reach.
--- NOTE | 2024-08-11 10:20 | W.PN.PUL3 ---
Today's Communication / Plan
-
Continue antibiotics
Discontinue chest tube today- IR consulted.
Continue to follow culture
Incentive spirometry encouraged
Will follow
Assessment
-
68-year-old male with a past medical history of colon cancer status post resection, hypertension, hyperlipidemia, hypothyroidism, and DVT (25 years ago) was transferred from [facility] for right-sided empyema and triple-vessel coronary
artery disease for consideration of IR guided drainage and CABG. Patient reports cough and flu like symptoms few weeks ago which were managed conservatively first, and later with Z-Pack and a short of course of steroids. His symptoms however
persisted, and he started having trace hemoptysis along with shortness of breath. He presented to ED at [facility] and was noted to have right sided pneumonia with loculated pleural effusion. During his stay there, he was also noted to have
elevated Troponin, and was diagnosed with NSTEMI, subsequent cardiac cath showed multivessel disease. He also had IR guided thoracentesis with 10 ml of sanguinous fluid which was noted to be exudate with elevated LDH, and subsequent gram stain was
positive for Gram positive cocci, suggestive of empyema. Pulmonary consult was requested for further recommendations regarding empyema. We are consulted for evaluation.
Right lung consolidation with Empyema s/p chest tube
s/p tpa/dornase 08/08
Hemoptysis
Dyspnea
NSTEMI
Mild Pulmonary HTN
Other medical diagnoses:
-HTN
-HLD
-DM
-h/o Gout
-?Lymphedema both lower extremities
Plan
Empyema, s/p chest tube 08/08
Pleural fluid Gram stain positive for GPC. Bedside POCUS performed (08/07) and showed loculated pleural effusion with extensive phlegmon.
Small volume fluid visualized. 08/05, Pleural fluid LDH 1569, Fluid triglycerides 202, pH 7.28
s/p tPA/DNAse
Monitor output, 595mL noted prior, past 24 hours about 0-no significant output.
CT chest08/11/2024: Reviewed-pigtail in place with a small right pleural effusion. Right lower lobe consolidation. Left lower lobe subsegmental atelectasis. Mild pericardial thickening.
Discontinue chest tube today-will place IR consult.
Continue Vancomycin and Unasyn, ID c following, defer antibiotics.
final cultures of pleural fluid--no growth
Pleural fluid triglyceride >110 (202 on 07/2024). Output is pink/serosanguineous, chylous unlikely
Currently saturating well on room air
Acute cough:
Due to Pneumonia, empyema and CAD
Clinically improving. Cough significantly improved, denies SOB
Patient has never smoked, no known h/o COPD/Asthma. D/c Spiriva and Symbicort-not bronchospastic on exam 08/11/2024.
Multivessel coronary artery disease:
LE edema at baseline, resume home meds/lasix
ASA, Statins, Coreg
Currently chest pain free
Cardiology service on case-eventual intervention once recovered from pneumonia.
RHC on 07/2024 showed mean PAP 22 with PVR 1.7. PCWP 9.
Patient will need sleep study as out patient as high pre-test probability of underlying sleep disordered breathing
Will arrange out patient follow up with Pulmonary clinic
Chronic pedal edema. Patient reports long standing edema. ?lymphedema vs medication related. PCWP normal
D/c Norvasc, can cause pedal edema
On Lasix currently
OP Pulm FU recommended-information will be left in the chart. He will need radiographic follow-up.
Pulmonary team will continue to follow

Data:
ECHO 04/2024: Technically limited and suboptimal study. Grossly normal chamber size. Grossly normal left and right ventricular systolic function. Grade 1 diastolic dysfunction. Trivial mitral, tricuspid and pulmonic insufficiency.
ECHO 07/2024: Grade I diastolic dysfunction, LVEF 50-55%, mildly elevated Pulm artery pressure, [address] Chest 08/04/2024: No PE noted. Loculated pleural effusion on right. No Lymphadenopathy
Cardiac Cath 08/06: Severe Tripple vessel CAD
RHC 07/2024: PA 38/15 with mean of 22; PCWP 9, Cardiac output 7.3 with CI 3.36, PVR 1.7
Total time spent on this consultation/encounter _52__ minutes which includes review of history, physical exam, medications, laboratory data, personal review of imaging, extensive review of outpatient records, discussion with care team and
respiratory therapy.
Subjective Data
-
Date of Service:
Date of Service: August 11, 2024
Chief Complaint: Pulmonary Follow Up (Empyema)
Subjective:
No new pulmonary complaints
Afebrile
Denies shortness of breath at rest
Denies any chills
Review of Systems
Cardiopulmonary: Dyspnea (none at rest)
GI: Abdominal Pain (n) and Nausea (n)
Neuro: Headache (n)
Objective Data
Data Reviewed
Vital Signs / I&O / Oxygen:
Vital Signs
Temp Pulse Resp BP Pulse Ox
98.1 F 91 18 163/85 97
08/11/24 07:22 08/11/24 07:20 08/11/24 07:22 08/11/24 07:20 08/11/24 07:22
Intake and Output
08/10/24 08/11/24 08/12/24
06:59 06:59 06:59
Intake Total 1760 / 1760 1200 / 1200 240 / 240
Output Total 1130 / 1130 0 / 0 700 / 700
Balance 630 / 630 1200 / 1200 -460 / -460
SaO2 97
Nasal Cannula flow liters per 2
minute
Physical Exam
General: Comfortable and Other (NAD)
HEENT: Normocephalic, Anicteric and Moist Mucous Membranes
Cardiovascular: S1-S2, Regular Rhythm and Peripheral Edema (bilateral, 3+, baseline)
Respiratory: Clear, Chest Tube (no air leak) and Other (Somewhat decreased air entry in the right lower lobe)
GI: Soft, Non Distended and Non Tender
Neurology: Awake, Alert, Oriented and No Motor Deficits
Skin: Warm, Dry and Good Color
Labs/Micro/Reports
Lab Data
08/11/24 04:36
08/11/24 04:36
Microbiology
08/08/24 15:18 Blood/Venous Blood Culture - Preliminary
No Growth in 48 hours- Final report to follow
08/08/24 15:19 Blood/Venous Blood Culture - Preliminary
No Growth in 48 hours- Final report to follow
08/08/24 14:02 Pleural Fluid Body Fluid Culture - Preliminary
No Growth After 48 Hours
08/08/24 14:02 Pleural Fluid Gram Stain - Preliminary
08/10/24 08:40 Nose Nasal Screen MRSA (PCR) - Final
MRSA not detected - performed by PCR methodology.
--- NOTE | 2024-08-11 11:45 | W.PN.ID1 ---
Date of Service
Date of Service: August 11, 2024
Today's Communication
continue unasyn
stop vancomycin
Assessment / Plan
R Sided Empyema
Pulmonary HTN
CAD
- s/p chest tube placement
- exudative effusion
- body fluid gram stain here negative and culture no growth to date, spoke with [facility] lab again today 08/11 - isolate from the pleural fluid was S intermedius - susceptibilities were not done, sputum culture was contaminated, blood culture was negative
- agree with repeat CT chest in several days
- chest tube management per pulmonary
- note consideration of possible decortication, eventual CABG
- vancomycin peak and trough elevated - agree with holding vancomycin today - level is mildly supratherapeutic
- will continue with unasyn pending further data
- stop
- follow clinically
workup again required interpretation of multiple lab results and coordination of care with microbiology lab at [facility]
Chief Complaint
-: Other (empyema)
Subjective / Review of Systems
afebrile
BP stable
leukocytosis resolved
no events overnight
Vital Signs / Physical Exam
Vital Signs
Vital Signs
Temp Pulse Resp BP Pulse Ox
98.1 F 91 18 163/85 97
08/11/24 07:22 08/11/24 07:20 08/11/24 07:22 08/11/24 07:20 08/11/24 07:22
Physical Exam
Constitutional: No Acute Distress
Cardiovascular: Regular Rate and S1/S2; Negative Murmur or Rub
Pulmonary: Clear and Symmetric; Negative Wheezes or Rales
Gastrointestinal: Soft, Non Tender, Non Distended and Normal Bowel Sounds
Skin: Warm and Dry; Negative Rash or Jaundice
Objective Data
Lab Data
Lab Results
08/11/24 04:36
08/11/24 04:36
Estimated Creat Clear 87 ml/min 08/11/24 04:36
Most recent labs reviewed.
Micro Results:
08/08/24 14:02 Body Fluid Culture - Final
Pleural Fluid No Growth After 72 Hours
Gram Stain - Final
08/08/24 15:18 Blood Culture - Preliminary
Blood/Venous No Growth in 48 hours- Final report to follow
08/08/24 15:19 Blood Culture - Preliminary
Blood/Venous No Growth in 48 hours- Final report to follow
08/10/24 08:40 Nasal Screen MRSA (PCR) - Final
Nose MRSA not detected - performed by PCR methodology.
--- NOTE | 2024-08-11 12:06 | W.PN.HOSP.TC ---
Today's Communication/Plan
-
as per pulm - to remove chest tube
cont abx
Assessment / Plan
Assessment / Plan
68yo M with PMHx of gout, COPD, colon CA s/p resection, HTN, HLD, hypothyroidism, remote Hx of DVT transferred from [facility] for R sided empyema and tripple vessel coronary disease mgmt. Had R chest tube placed on 08/08/24 and continued on Abx.
Cardiology will eval for further mgmt f tripple vessel CAD upon treatment of empyema
A/P:
#Pneumonia with empyema on RLL
s/p chest tube
Bcx and fluid Cx neg
ID for Abx mgmt
#Type 2 KS
as per pain management physician assessment - will treat CAP with empyema first before attempting further mgmt
ASA, stgatin, BB, telemetry
#b/l LE chronic lymphedema
compression stockings
DM type 2 with neuropathy
Accuchecks, Insulin SS, DM diet
cont Glipizide
Stop pyoglitazone
#Essential HTN
#Gout
#COPD
cont home meds
DVT ppx on lovenox
FUll code
I have spent at least 36min reviewing chart, test results, communication with consultants and providing direct patient care
Anticipated Discharge: > 48 hours
Subjective/Interval History
-
Date of Service: August 11, 2024
Objective Data
-
Labs:
Laboratory Results
08/11/24
04:36
WBC 10.3
Hgb 7.9 L
Hct 23.9 L
Plt Count 233
Sodium 141
Potassium 4.0
Chloride 109 H
Carbon Dioxide 25
BUN 29 H
Creatinine 1.0
Glucose 80
Calcium 8.2 L
Vital Signs:
Vital Signs
Temp Pulse Resp BP Pulse Ox
98.0 F 91 18 163/85 97
08/11/24 11:59 08/11/24 07:20 08/11/24 11:59 08/11/24 07:20 08/11/24 11:59
I&O
08/10/24 08/11/24 08/12/24
06:59 06:59 06:59
Intake Total 1760 / 1760 1200 / 1200 240 / 240
Output Total 1130 / 1130 0 / 0 700 / 700
Balance 630 / 630 1200 / 1200 -460 / -460
Review of Systems
-
History Source: Patient
All other systems: Reviewed and negative
Respiratory: Reports Cough
Physical Exam
-
General: No Apparent Distress
HEENT: Normocephalic
Respiratory: Clear to Auscultation
GI: Soft, Nontender and Nondistended
Neuro: Awake, Alert, Oriented and AO x 3
Psych: Calm
[2024-08-11 13:01] LABS: Glucose - Point of Care 98 mg/dl (70-99)
--- NOTE | 2024-08-11 14:15 | PN.IRAD.UPD ---
Update Note - IRAD
- -
D/C CHEST TUBE PER DR. MENEZES, NO COMPLAINTS FROM PATIENT, DRESSED WITH VASIGAUZE AND OCCLUSIVE DRESSING (LL)
--- NOTE | 2024-08-11 15:09 | PTCARENOTE ---
Patient returned from IR, R posterior CT discontinued. Foam dressing in place which is dry and intact. Patient is sitting oob in the chair.
[2024-08-11 16:52] LABS: Glucose - Point of Care 155 mg/dl (70-99)
--- NOTE | 2024-08-11 17:00 | CM ---
cm following for dc planning needs .
[2024-08-11] MEDS: NOVOLOG FLEXPEN-MODERATE RESISTANCE 1 UNITS SC (17:36)
[2024-08-11] MEDS: LIPITOR 20 MG PO (17:37)
[2024-08-11] MEDS: LOVENOX 40 MG SC (17:37)
[2024-08-11] MEDS: STERILE WATER FOR INJECTION IV (17:42)
[2024-08-11] MEDS: ROBITUSSIN 100 MG PO (18:56)
[2024-08-11 22:26] LABS: Glucose - Point of Care 178 mg/dl (70-99)
[2024-08-12] VITALS (7 sets, daily range): BP systolic 119–159; BP diastolic 75–85; BMI 32.6
[2024-08-12] MEDS: UNASYN IV ×2 (03:44→08:17)
[2024-08-12 04:25] LABS: % Basophils 0.6 % (0-2); % Eosinophils 1.5 % (0-6); % Immature Granulocytes 3.3 % (0-0.5); % Lymphocytes 13.1 % (20.5-51.1); % Monocytes 5.9 % (1.7-9.3); % Neutrophils 75.6 % (42.2-75.2); Absolute Basophils 0.1 10^3/uL (0-0.2); Absolute Eosinophils 0.2 10^3/uL (0-0.7); Absolute Immature Granulocytes 0.3 10^3/uL (0-0.05); Absolute Lymphocytes 1.4 10^3/uL (1.2-3.4); Absolute Monocytes 0.6 10^3/uL (0.1-0.6); Absolute Neutrophils 7.8 10^3/uL (1.4-6.5); Hematocrit 27.3 % (39.0-52.0); Hemoglobin 9.1 g/dL (13.0-18.0); Mean Corp Hgb Conc. 33.3 g/dL (33.0-37.0); Mean Corpuscular Hgb 35.7 pg (27.0-31.0); Mean Corpuscular Volume 107.1 fL (80.0-94.0); Mean Platelet Volume 11.1 fL (7.4-10.4); Nucleated Red Blood Cells % 0 % (-); Platelet Count 271 10^3/uL (130-400); Red Blood Cell Count 2.55 10^6/uL (4.70-6.10); White Blood Cell Count 10.3 10^3/uL (4.8-10.8)
--- NOTE | 2024-08-12 04:45 | PTCARENOTE ---
Pt NSR on monitor. C/o rt side back pain that impoved with Tylenol PRN. Rt side back dsg intact no drainage noted
[2024-08-12 04:58] LABS: ALT (SGPT) 176 U/L (0-50); AST (SGOT) 113 U/L (17-59); Alkaline Phosphatase 195 U/L (38-126); Blood Urea Nitrogen 23 mg/dl (9-20); Calcium 8.6 mg/dl (8.4-10.2); Carbon Dioxide 24 mmol/L (22-30); Chloride 108 mmol/L (98-107); Estimated Creatinine Clearance 86 ml/min; Glucose 147 mg/dl (70-99); Potassium 3.9 mmol/L (3.5-5.1); Sodium 143 mmol/L (135-145); Total Bilirubin 0.6 mg/dl (0.2-1.3); Total Protein 6.5 g/dl (6.3-8.2); eGFR > 60.00
[2024-08-12 07:57] LABS: Glucose - Point of Care 120 mg/dl (70-99)
[2024-08-12] MEDS: NOVOLOG FLEXPEN-MODERATE RESISTANCE SC ×2 (08:16→17:37)
[2024-08-12] MEDS: ASPIR LOW (ENTERIC COATED) 81 MG PO (08:16)
[2024-08-12] MEDS: ZYLOPRIM 300 MG PO (08:18)
--- NOTE | 2024-08-12 08:18 | W.PN.CD ---
Today's Communication / Plan
-
continue with medicla therapy for CAD
continue tx of PNA/empyema a per pulomary /ID and hospitlists.
continue to monitor edema'. He uses conpression stockings at home and is on lasix 40mg daily. May intermittently need additional diuretic
Impression / Plan
-
Impression/Plan: 68 y/o male with HTN, HLD and NIDDM admitted to [facility] with SOB, found to have right sided PNA complicated by empyema and abnormal troponin, subsequently diagnosed with 3V CAD and transferred for further management.
#CAD/Troponin elevation
-Chronic, progressive.
-CAD is reportedly severe.
-He has no CP.
-Troponin peaked at 3995 at [facility] (DH equivalent of 3.995).
-Echo reportedly technically difficult, unable to assess RWMA, but LVEF preserved (50-55%).
-troponin elevation suspected to be a type II event and not acute coronary syndrome
-Continue ASA, statin, BB.
- monioring and txof anemia
-Per notea - Dr. Kebdee spoke to Dr. Burns( appraisal technician at [facility]) Based on the patient's troponin pattern and his coronary artery disease, they agreed that this event is NOT ACS, but rather a type 2 event to be managed medically. Once
PNA/empyema definitively managed will discuss revasc either surgical/PCI/hybrid? Awaiting watchguard with a copy of the patient's films, hopeful today. Ideally, we will let the patient recover from his PNA and allow him to get full revascularization
and avoid worsening hemoptysis from required DAPT for PCI.
#PNA/Empyema
-Pleural fluid positive for GPC's (08/05/2024).
-Chest tube placed with chemical decortication (tPA).
-Continue ABX per ID.
- Chest tub has been removed
#LE wound
-Unclear duration.
-Wound care consulted.
# b/l LE edema
- chronic stable per patient
#Anemia:
-hb 9.1p from 7.9
-management per primary
#HTN:
-Chronic, stable.
-Continue medical therapy and monitor.
#Dyslipidemia
-Continue statin.
#DM
-HbA1c = 7.2%.
-Management per primary team.
LE edema:
-continue lasix
Subjective/Interval History:
Feels improved cough much improved
Data:
[facility] Echo, 05/13/2024:
CONCLUSIONS
Technically limited and suboptimal study.
Grossly normal chamber size.
Grossly normal left and right ventricular systolic function.
Grade 1 diastolic dysfunction.
Trivial mitral, tricuspid and pulmonic insufficiency.
Cardiac Catheterization 08/06/24:
Severe triple vessel CAD (details in physical chart).
Chest Tube Placement, 08/08/2024:
IMPRESSION:
1. Successful ultrasound and fluoroscopically guided placement of a right chest tube, yielding 30 mL of dark serous nonpurulent fluid.
2. TPA and dornase were then infused into the chest tube immediately following placement (please see separate report).
Physical Exam
Vital Signs/Labs
Vital Signs
Temp Pulse Resp BP Pulse Ox
98.2 F 82 16 142/78 96
08/12/24 07:06 08/12/24 07:06 08/12/24 07:06 08/12/24 03:44 08/12/24 07:06
08/11/24 08/12/24 08/13/24
06:59 06:59 06:59
Actual Weight 103 kg
08/12/24 04:00
08/12/24 04:00
Magnesium 1.7 mg/dl (1.6-2.3) 08/10/24 05:15
Triglycerides 231 mg/dl (10-149) H 08/09/24 02:51
08/08/24
04:09
Jow-R-Qqcyurqysee Pept 1500
Physical Exam
Constitutional: No acute distress
Cardiovascular: Rhythm & rate is regular
Respiratory: Wheeze Absent and Rhonchi Absent
GI: Soft and Non tender
Neuro/Psych: Alert
Other: Other (mild edema bilat. right radial 2 +)
Data Reviewed
-
Date of Service: August 12, 2024
Medical Decision Making: Reviewed Test Results
X-Ray/CT/US/MRI/NUC/PET: Report Reviewed by me
Medical Tests (PFT, Pathology etc): Image Personally Visualized and interpreted
Labs: Labs Reviewed by me
[2024-08-12] MEDS: COREG 12.5 MG PO ×2 (08:20→20:54)
[2024-08-12] MEDS: LASIX 40 MG PO (08:20)
[2024-08-12] MEDS: GLUCOTROL 10 MG PO ×2 (08:20→18:21)
--- NOTE | 2024-08-12 09:53 | W.PN.ID1 ---
Addendum entered and electronically signed by Kelly Bailey MD 08/12/24 11:10:
notified that CABG is planned for outpatient
will transition to ceftriaxone 2 gm iv q24 and metronidazole 500 mg po bid x 4 weeks (through 09/03)
follow up in clinic in 5-6 weeks
[address] martini
Original Note:
Date of Service
Date of Service: August 12, 2024
Today's Communication
continue unasyn
Assessment / Plan
R Sided Empyema
Pulmonary HTN
CAD
- s/p chest tube placement
- exudative effusion
- body fluid gram stain here negative and culture no growth to date - isolate from [facility] pleural fluid was S intermedius - susceptibilities were not done, sputum culture was contaminated, blood culture was negative; copies of labs uploaded by my
office into [facility]
- eventual CABG
- will continue with unasyn
- follow clinically
Chief Complaint
-: Other (empyema)
Subjective / Review of Systems
afebrile
bp stable
chest tube removed
Vital Signs / Physical Exam
Vital Signs
Vital Signs
Temp Pulse Resp BP Pulse Ox
98.2 F 98 16 159/81 96
08/12/24 07:06 08/12/24 08:20 08/12/24 07:06 08/12/24 08:20 08/12/24 07:06
Physical Exam
Constitutional: No Acute Distress and Chronically Ill
Cardiovascular: Regular Rate and S1/S2; Negative Murmur or Rub
Pulmonary: Clear and Symmetric; Negative Wheezes or Rales
Gastrointestinal: Soft, Non Tender, Non Distended and Normal Bowel Sounds
Skin: Warm and Dry; Negative Rash or Jaundice
Objective Data
Lab Data
Lab Results
08/12/24 04:00
08/12/24 04:00
Estimated Creat Clear 86 ml/min 08/12/24 04:00
Total Bilirubin 0.6 mg/dl (0.2-1.3) 08/12/24 04:00
AST 113 U/L (17-59) H 08/12/24 04:00
ALT 176 U/L (0-50) H 08/12/24 04:00
Alkaline Phosphatase 195 U/L (38-126) H 08/12/24 04:00
Most recent labs reviewed.
Micro Results:
08/08/24 15:18 Blood Culture - Preliminary
Blood/Venous No Growth in 72 hours- Final report to follow
08/08/24 15:19 Blood Culture - Preliminary
Blood/Venous No Growth in 72 hours- Final report to follow
08/08/24 14:02 Body Fluid Culture - Final
Pleural Fluid No Growth After 72 Hours
Gram Stain - Final
08/10/24 08:40 Nasal Screen MRSA (PCR) - Final
Nose MRSA not detected - performed by PCR methodology.
Care Review
Plan reviewed with: Physician (Dr Lizarraga - isolate, antibiotics)
--- NOTE | 2024-08-12 09:56 | W.PN.PUL3 ---
Today's Communication / Plan
-
Repeat chest x-ray tomorrow
Continue antibiotics
Encourage incentive spirometer
Increase mobility as able
Continue cardiac management
Assessment
-
68-year-old male with a past medical history of colon cancer status post resection, hypertension, hyperlipidemia, hypothyroidism, and DVT (25 years ago) was transferred from [facility] for right-sided empyema and triple-vessel coronary
artery disease for consideration of IR guided drainage and CABG. Patient reports cough and flu like symptoms few weeks ago which were managed conservatively first, and later with Z-Pack and a short of course of steroids. His symptoms however
persisted, and he started having trace hemoptysis along with shortness of breath. He presented to ED at [facility] and was noted to have right sided pneumonia with loculated pleural effusion. During his stay there, he was also noted to have
elevated Troponin, and was diagnosed with NSTEMI, subsequent cardiac cath showed multivessel disease. He also had IR guided thoracentesis with 10 ml of sanguinous fluid which was noted to be exudate with elevated LDH, and subsequent gram stain was
positive for Gram positive cocci, suggestive of empyema. Pulmonary consult was requested for further recommendations regarding empyema. We are consulted for evaluation.
Right lung consolidation with Empyema s/p chest tube
s/p tpa/dornase 08/08
Hemoptysis
Dyspnea
NSTEMI
Mild Pulmonary HTN
Other medical diagnoses:
-HTN
-HLD
-DM
-h/o Gout
-?Lymphedema both lower extremities
Plan
Empyema, s/p chest tube 08/08
Chest tube discontinued 08/11/2024.
Pleural fluid Gram stain positive for GPC. Bedside POCUS performed (08/07) and showed loculated pleural effusion with extensive phlegmon.
Small volume fluid visualized. 08/05, Pleural fluid LDH 1569, Fluid triglycerides 202, pH 7.28
s/p tPA/DNAse
Monitor output, 595mL noted prior, past 24 hours about 0-no significant output.
CT chest08/11/2024: -pigtail in place with a small right pleural effusion. Right lower lobe consolidation. Left lower lobe subsegmental atelectasis. Mild pericardial thickening.
IR discontinue chest tube 08/11/2024.
Repeat chest x-ray 08/13/2024 to rule out reaccumulation
Remains afebrile without leukocytosis 08/12/2024.
Patient will need outpatient radiographic follow-up in the next 6 to 8 weeks.
Continue Vancomycin and Unasyn, ID c following, defer antibiotics.
final cultures of pleural fluid--no growth
Pleural fluid triglyceride >110 (202 on 07/2024). Output is pink/serosanguineous, chylous unlikely
Lung exam relatively clear
Currently saturating well on room air
Clinically improving. Cough significantly improved, denies SOB
Patient has never smoked, no known h/o COPD/Asthma. D/c Spiriva and Symbicort-not bronchospastic on exam 08/11/2024.
Multivessel coronary artery disease:
LE edema at baseline, resume home meds/lasix
ASA, Statins, Coreg
Currently chest pain free
Cardiology service on case-eventual intervention once recovered from pneumonia.
RHC on 07/2024 showed mean PAP 22 with PVR 1.7. PCWP 9.
Patient will need sleep study as out patient as high pre-test probability of underlying sleep disordered breathing
Will arrange out patient follow up with Pulmonary clinic
Chronic pedal edema. Patient reports long standing edema. ?lymphedema vs medication related. PCWP normal
D/c Norvasc, can cause pedal edema
On Lasix currently
OP Pulm FU recommended-information will be left in the chart. He will need radiographic follow-up.
Pulmonary team will continue to follow

Data:
ECHO 04/2024: Technically limited and suboptimal study. Grossly normal chamber size. Grossly normal left and right ventricular systolic function. Grade 1 diastolic dysfunction. Trivial mitral, tricuspid and pulmonic insufficiency.
ECHO 07/2024: Grade I diastolic dysfunction, LVEF 50-55%, mildly elevated Pulm artery pressure, [address] Chest 08/04/2024: No PE noted. Loculated pleural effusion on right. No Lymphadenopathy
Cardiac Cath 08/06: Severe Tripple vessel CAD
RHC 07/2024: PA 38/15 with mean of 22; PCWP 9, Cardiac output 7.3 with CI 3.36, PVR 1.7
Subjective Data
-
Date of Service:
Date of Service: August 12, 2024
Chief Complaint: Pulmonary Follow Up (Empyema)
Subjective:
No new pulmonary complaints
Denies increased cough or phlegm production
Denies chest discomfort
Review of Systems
General: Fever (n)
Cardiopulmonary: Dyspnea (none at rest)
GI: Abdominal Pain (n)
Neuro: Headache (n)
Objective Data
Data Reviewed
Vital Signs / I&O / Oxygen:
Vital Signs
Temp Pulse Resp BP Pulse Ox
98.2 F 98 16 159/81 96
08/12/24 07:06 08/12/24 08:20 08/12/24 07:06 08/12/24 08:20 08/12/24 07:06
Intake and Output
08/11/24 08/12/24 08/13/24
06:59 06:59 06:59
Intake Total 1200 / 1200 480 / 480
Output Total 0 / 0 1100 / 1100
Balance 1200 / 1200 -620 / -620
SaO2 96
Nasal Cannula flow liters per 2
minute
Physical Exam
General: Comfortable and Other (NAD)
HEENT: Normocephalic, Anicteric and Moist Mucous Membranes
Cardiovascular: S1-S2, Regular Rhythm and Peripheral Edema (bilateral, 3+, baseline)
Respiratory: Clear and Other (Somewhat decreased air entry in the right lower lobe)
GI: Soft, Non Distended and Non Tender
Neurology: Awake, Alert, Oriented, AO x 3 and No Motor Deficits
Skin: Warm, Dry and Good Color
Labs/Micro/Reports
Lab Data
08/12/24 04:00
08/12/24 04:00
Microbiology
08/08/24 15:18 Blood/Venous Blood Culture - Preliminary
No Growth in 72 hours- Final report to follow
08/08/24 15:19 Blood/Venous Blood Culture - Preliminary
No Growth in 72 hours- Final report to follow
08/08/24 14:02 Pleural Fluid Body Fluid Culture - Final
No Growth After 72 Hours
08/08/24 14:02 Pleural Fluid Gram Stain - Final
08/10/24 08:40 Nose Nasal Screen MRSA (PCR) - Final
MRSA not detected - performed by PCR methodology.
--- NOTE | 2024-08-12 11:03 | W.PN.HOSP.TC ---
Today's Communication/Plan
-
pending final ID reccomendations
Assessment / Plan
Assessment / Plan
68yo M with PMHx of gout, COPD, colon CA s/p resection, HTN, HLD, hypothyroidism, remote Hx of DVT transferred from [facility] for R sided empyema and triple vessel coronary disease mgmt. Had R chest tube placed on 08/08/24 and continued on Abx.
Cardiology will eval for further mgmt f tripple vessel CAD upon treatment of empyema. CHest tube removed on 08/11/24. Pleural Cx from [facility] grew S.intermedius. Cardiology will plan CABG upon d/c and functional level improvement.
A/P:
#Pneumonia with empyema on RLL
s/p chest tube - removed on 08/11/24
Bcx and fluid Cx neg
ID for Abx mgmt: S.intermedius on cultures from [facility] now.
#Type 2 NM
as per mate chief assessment - will treat CAP with empyema first before attempting further mgmt
ASA, stgatin, BB, telemetry
#b/l LE chronic lymphedema
compression stockings
DM type 2 with neuropathy
Accuchecks, Insulin SS, DM diet
cont Glipizide
Stop pioglitazone
#Essential HTN
#Gout
#COPD
cont home meds
DVT ppx on lovenox
FUll code
I have spent at least 36min reviewing chart, test results, communication with consultants and providing direct patient care
Anticipated Discharge: 24 - 48 hours
Subjective/Interval History
-
Date of Service: August 12, 2024
Objective Data
-
Labs:
Laboratory Results
08/12/24
04:00
WBC 10.3
Hgb 9.1 L
Hct 27.3 L
Plt Count 271
Sodium 143
Potassium 3.9
Chloride 108 H
Carbon Dioxide 24
BUN 23 H
Creatinine 1.0
Glucose 147 H
Calcium 8.6
Total Bilirubin 0.6
AST 113 H
ALT 176 H
Alkaline Phosphatase 195 H
Vital Signs:
Vital Signs
Temp Pulse Resp BP Pulse Ox
98.2 F 98 16 159/81 96
08/12/24 07:06 08/12/24 08:20 08/12/24 07:06 08/12/24 08:20 08/12/24 07:06
I&O
08/11/24 08/12/24 08/13/24
06:59 06:59 06:59
Intake Total 1200 / 1200 480 / 480
Output Total 0 / 0 1100 / 1100
Balance 1200 / 1200 -620 / -620
--- NOTE | 2024-08-12 11:06 | W.PN.UPDATE ---
Update Note
Progress Note Update
LFT elevation without abd pain - coincern for Abx induced, will discuss with ID for consideration to change Abx. US RUQ and follow LFT
[2024-08-12 11:51] LABS: Glucose - Point of Care 175 mg/dl (70-99)
[2024-08-12] MEDS: NOVOLOG FLEXPEN-MODERATE RESISTANCE 1 UNITS SC (11:52)
[2024-08-12] MEDS: FLAGYL 500 MG PO ×2 (12:36→20:54)
[2024-08-12] MEDS: STERILE WATER FOR INJECTION 20 ML IV (12:36)
[2024-08-12] MEDS: ROCEPHIN 2000 MG IV (12:36)
[2024-08-12 13:46] LABS: Hepatitis B Surface Antigen Negative (Negative)
[2024-08-12 14:04] LABS: Hepatitis B Core Ab, Total Negative (Negative); Hepatitis B Surface Antibody Negative; Hepatitis C Antibody Negative (Negative)
--- NOTE | 2024-08-12 15:15 | PTCARENOTE ---
Addendum entered by Poonam Holder RN 08/12/24 17:50:
Pt back from US at approx 1635, 2nd CXR to verify PICC placement completed, awaiting results. VSS. Pt with no c/o pain or SOB at this time. Family at bedside. Call adams within reach.
Original Note:
Pt transferred out of unit for abd US.
--- NOTE | 2024-08-12 16:23 | VATNOTE ---
awaiting pt to return from US to redirect PICC.
[2024-08-12 16:41] LABS: Vitamin B1, Whole Blood 141 nmol/L (70-180)
--- NOTE | 2024-08-12 17:10 | VATNOTE ---
redirected right picc per protocol. Awaiting repeat portable CXR.
[2024-08-12 17:35] LABS: Glucose - Point of Care 95 mg/dl (70-99)
[2024-08-12] MEDS: STERILE WATER FOR INJECTION IV (17:38)
--- NOTE | 2024-08-12 17:38 | PTCARENOTE ---
Pt's requesting to talk to attending to clarify POC, abd US, and medications pt will be on at d/c. Discussed POC with both, also dr. Gonzalez was TT and made aware of their concerns.
[2024-08-12] MEDS: LIPITOR 20 MG PO (18:21)
[2024-08-12] MEDS: LOVENOX 40 MG SC (18:22)
--- NOTE | 2024-08-12 18:51 | VATNOTE ---
Pt for IR consult by Dr. Bailey in AM for redirect of PICC. IR, Oanh, TT and instructed to leave PICC in. TT Dr. Bailey for order for pt to go to IR in am.
[2024-08-12] MEDS: TYLENOL 1000 MG PO (19:03)
--- NOTE | 2024-08-12 19:50 | PTCARENOTE ---
Assumed care of pt from prev nsg shift; pt AAOx3 w/no c/o CP or SOB. Pt c/o 11/06 RUE pain at the new PICC insertion area. PRN PO Tylenol administered as ordered & warm compress wrapped around RUE. Pt's R wrist & hand swollen, which pt reports as
new. Pt's RUE elevated on 2 pillows. VAT notified & in to see pt. Pt to go to IR [facility] for adjustment of PICC placement. Pt's VSS w/HR in the 80's-90's & BP 141/75. Pt is SR on telemetry monitoring. Pt w/call adams within reach & no addtl needs at
this time.
[2024-08-12 21:37] LABS: Glucose - Point of Care 145 mg/dl (70-99)
--- NOTE | 2024-08-12 22:48 | VATNOTE ---
called to assess right hand swelling and soreness in right upper arm. Pt was out in chair. Right hand slightly swollen (+1) and pt stated right upper arm discomfort was improved since earlier. PCN stated pt had tylenol for arm discomfort. Instructed
pt that it is common for picc arm discomfort plus this VAT RN's redirection of picc earlier today, leaving arm sore. Informed pt of plan with IR tomorrow sometime after noon for redirect of picc line. pt did not want US done this laxmi when offered.
VAT to follow tomorrow for IR redirect order from Dr. Bailey.
[2024-08-13] VITALS (8 sets, daily range): BP systolic 86–146; BP diastolic 69–78; BMI 32.4
[2024-08-13] MEDS: TYLENOL 1000 MG PO (05:34)
[2024-08-13 06:40] LABS: ALT (SGPT) 156 U/L (0-50); AST (SGOT) 89 U/L (17-59); Albumin 2.9 g/dl (3.5-5.0); Alkaline Phosphatase 193 U/L (38-126); Direct Bilirubin 0.3 mg/dl (0.0-0.4); Total Bilirubin 0.6 mg/dl (0.2-1.3); Total Protein 6.3 g/dl (6.3-8.2)
--- NOTE | 2024-08-13 09:01 | W.PN.HOSP.TC ---
Today's Communication/Plan
-
PICC
home infusions
final pulm reccs
Assessment / Plan
Assessment / Plan
68yo M with PMHx of gout, COPD, colon CA s/p resection, HTN, HLD, hypothyroidism, remote Hx of DVT transferred from [facility] for R sided empyema and triple vessel coronary disease mgmt. Had R chest tube placed on 08/08/24 and continued on Abx.
Cardiology will eval for further mgmt f tripple vessel CAD upon treatment of empyema. CHest tube removed on 08/11/24. Pleural Cx from [facility] grew S.intermedius. Cardiology will plan CABG upon d/c and functional level improvement.
A/P:
#Pneumonia with empyema on RLL
s/p chest tube - removed on 08/11/24
Bcx and fluid Cx neg
ID for Abx mgmt: S.intermedius on cultures from [facility] - Ceftriaxone and Flagyl till 09/03/24, PICC to be placed, CM for home infusion
Pulm consult: repeat CXR and if no reaccumulation - CT in 6-8 weeksupon d/c - discussed with patient and he verbalized understanding of the instructions
#Type 2 FL
as per metallurgist process assessment - will treat CAP with empyema first before attempting further mgmt, planned for outpatient workup
ASA, statin, BB, telemetry
#Transaminitis with alk.phos elevation
concern for DILI 2/2 Abx
Abx switched. COnt to monitor LFT
Hepatitis panel neg
US RUQ: no biliary dilation, gall bladder with sludge, no signs or symptoms of cholecystitis, normal liver echogenicity
#b/l LE chronic lymphedema
compression stockings
DM type 2 with neuropathy
Accuchecks, Insulin SS, DM diet
cont Glipizide
Stop pioglitazone
#Essential HTN
#Gout
#COPD
cont home meds
DVT ppx on lovenox
FUll code
I have spent at least 36min reviewing chart, test results, communication with consultants and providing direct patient care
Anticipated Discharge: Within 24 hours
Subjective/Interval History
-
Date of Service: August 13, 2024
Objective Data
-
Labs:
Laboratory Results
08/13/24
05:37
Total Bilirubin 0.6
AST 89 H
ALT 156 H
Alkaline Phosphatase 193 H
Vital Signs:
Vital Signs
Temp Pulse Resp BP Pulse Ox
98.2 F 89 20 137/76 97
08/13/24 07:37 08/13/24 05:25 08/13/24 07:37 08/13/24 05:25 08/13/24 07:37
I&O
08/12/24 08/13/24 08/14/24
06:59 06:59 06:59
Intake Total 480 / 480 480 / 480
Output Total 1100 / 1100
Balance -620 / -620 480 / 480
Review of Systems
-
History Source: Patient
All other systems: Reviewed and negative
Physical Exam
-
General: No Apparent Distress
HEENT: Normocephalic
Respiratory: Clear to Auscultation
GI: Soft, Nontender and Nondistended
Neuro: Awake, Alert, Oriented and AO x 3
Psych: Calm
[2024-08-13 09:07] LABS: Glucose - Point of Care 74 mg/dl (70-99)
[2024-08-13] MEDS: ZYLOPRIM 300 MG PO (09:19)
[2024-08-13] MEDS: FLAGYL 500 MG PO ×2 (09:19→19:34)
[2024-08-13] MEDS: COREG 12.5 MG PO ×2 (09:19→19:34)
[2024-08-13] MEDS: NOVOLOG FLEXPEN-MODERATE RESISTANCE SC ×2 (09:19→14:45)
[2024-08-13] MEDS: GLUCOTROL 10 MG PO ×2 (09:19→18:16)
[2024-08-13] MEDS: ASPIR LOW (ENTERIC COATED) 81 MG PO (09:19)
[2024-08-13] MEDS: LASIX 40 MG PO (09:20)
--- NOTE | 2024-08-13 10:13 | W.PN.UPDATE ---
Update Note
Progress Note Update
Patient with TYpe II troponin elevation. Plan to allow recovery from empyema and follow up with Dr. Umesh Gallegos on 09/15 @ [id number] (appointment in DC Summary). Dr. Gallegos recommending follow-up non-contrast CT chest to evaluate for improvement of RLL
opacification
--- NOTE | 2024-08-13 11:36 | W.PN.ID1 ---
Date of Service
Date of Service: August 13, 2024
Today's Communication
- c/w ceftriaxone 2 gm iv q24 and metronidazole 500 mg po bid x 4 weeks (through 09/03)
follow up in clinic in 5-6 weeks
Assessment / Plan
R Sided Empyema
Pulmonary HTN
CAD
- s/p chest tube placement
- exudative effusion
- body fluid gram stain here negative and culture no growth to date - isolate from [facility] pleural fluid was S intermedius - susceptibilities were not done, sputum culture was contaminated, blood culture was negative; copies of labs uploaded by my
office into [facility]
- eventual CABG
- has some tenderness over the R arm distal to the R picc line; PICC is due for repositioning later today
- c/w ceftriaxone 2 gm iv q24 and metronidazole 500 mg po bid x 4 weeks (through 09/03)
follow up in clinic in 5-6 weeks
- follow clinically
Chief Complaint
-: Other (empyema)
Subjective / Review of Systems
afebrile
bp stable
tenderness over the distal right arm distal to the PICC line
Vital Signs / Physical Exam
Vital Signs
Vital Signs
Temp Pulse Resp BP Pulse Ox
98.2 F 80 18 137/78 98
08/13/24 11:09 08/13/24 09:19 08/13/24 11:09 08/13/24 09:19 08/13/24 11:09
Physical Exam
Constitutional: No Acute Distress
Cardiovascular: Regular Rate and S1/S2; Negative Murmur or Rub
Pulmonary: Clear and Symmetric; Negative Wheezes or Rales
Gastrointestinal: Soft, Non Tender, Non Distended and Normal Bowel Sounds
Skin: Warm and Dry; Negative Rash or Jaundice
Objective Data
Lab Data
Lab Results
08/12/24 04:00
08/12/24 04:00
Estimated Creat Clear 86 ml/min 08/12/24 04:00
Total Bilirubin 0.6 mg/dl (0.2-1.3) 08/13/24 05:37
AST 89 U/L (17-59) H 08/13/24 05:37
ALT 156 U/L (0-50) H 08/13/24 05:37
Alkaline Phosphatase 193 U/L (38-126) H 08/13/24 05:37
Most recent labs reviewed.
Micro Results:
08/08/24 15:18 Blood Culture - Preliminary
Blood/Venous No Growth in 4 days- Final report to follow
08/08/24 15:19 Blood Culture - Preliminary
Blood/Venous No Growth in 4 days- Final report to follow
08/08/24 14:02 Body Fluid Culture - Final
Pleural Fluid No Growth After 72 Hours
Gram Stain - Final
08/10/24 08:40 Nasal Screen MRSA (PCR) - Final
Nose MRSA not detected - performed by PCR methodology.
[2024-08-13] MEDS: ROCEPHIN 2000 MG IV (12:04)
[2024-08-13] MEDS: STERILE WATER FOR INJECTION 20 ML IV (12:04)
--- NOTE | 2024-08-13 12:26 | PTCARENOTE ---
Pt c/o right arm discomfort, since Picc placement. Pt rated this discomfort as 6 out of 10 this morning and 5 out of 10 now. Pt's RUE wrapped with a warm blanket and elevated. Pt offered tylenol and comfort measures. Pt w/ +3 b/l radial pulses.
Pt content at this time. Will monitor.
--- NOTE | 2024-08-13 12:51 | W.PN.PUL3 ---
Today's Communication / Plan
-
Continue antibiotic therapy and complete full course
Eventual radiographic follow-up
Follow-up in our office in about 2 to 3 weeks
Sign off
Assessment
-
68-year-old male with a past medical history of colon cancer status post resection, hypertension, hyperlipidemia, hypothyroidism, and DVT (25 years ago) was transferred from [facility] for right-sided empyema and triple-vessel coronary
artery disease for consideration of IR guided drainage and CABG. Patient reports cough and flu like symptoms few weeks ago which were managed conservatively first, and later with Z-Pack and a short of course of steroids. His symptoms however
persisted, and he started having trace hemoptysis along with shortness of breath. He presented to ED at [facility] and was noted to have right sided pneumonia with loculated pleural effusion. During his stay there, he was also noted to have
elevated Troponin, and was diagnosed with NSTEMI, subsequent cardiac cath showed multivessel disease. He also had IR guided thoracentesis with 10 ml of sanguinous fluid which was noted to be exudate with elevated LDH, and subsequent gram stain was
positive for Gram positive cocci, suggestive of empyema. Pulmonary consult was requested for further recommendations regarding empyema. We are consulted for evaluation.
Right lung consolidation with Empyema s/p chest tube
s/p tpa/dornase 08/08
Hemoptysis
Dyspnea
NSTEMI
Mild Pulmonary HTN
Other medical diagnoses:
-HTN
-HLD
-DM
-h/o Gout
-?Lymphedema both lower extremities
Plan
Empyema, s/p chest tube 08/08
Chest tube discontinued 08/11/2024.
Pleural fluid Gram stain positive for GPC. Bedside POCUS performed (08/07) and showed loculated pleural effusion with extensive phlegmon.
Small volume fluid visualized. 08/05, Pleural fluid LDH 1569, Fluid triglycerides 202, pH 7.28
s/p tPA/DNAse
Monitor output, 595mL noted prior, past 24 hours about 0-no significant output.
CT chest08/11/2024: -pigtail in place with a small right pleural effusion. Right lower lobe consolidation. Left lower lobe subsegmental atelectasis. Mild pericardial thickening.
IR discontinue chest tube 08/11/2024.
Repeat chest x-ray 08/13/2024 reviewed, no evidence for reaccumulation.
Remains afebrile without leukocytosis 08/12/2024.
Patient will need outpatient radiographic follow-up in the next 6 to 8 weeks.
Will need eventual CT chest.
-
Continue antibiotics per infectious disease.
Apparently grew Streptococcus intermedius on on initial culture from [facility]
Pleural fluid triglyceride >110 (202 on 07/2024). Output is pink/serosanguineous, chylous unlikely
Lung exam relatively clear
Currently saturating well on room air
Clinically improving. Cough significantly improved, denies SOB
Patient has never smoked, no known h/o COPD/Asthma. D/c Spiriva and Symbicort-not bronchospastic on exam 08/11/2024.
Multivessel coronary artery disease:
LE edema at baseline, resume home meds/lasix
ASA, Statins, Coreg
Currently chest pain free
Cardiology service on case-eventual intervention once recovered from pneumonia.
Patient has appointment in August
For
Patient to return in the outpatient setting.
RHC on 07/2024 showed mean PAP 22 with PVR 1.7. PCWP 9.
Patient will need sleep study as out patient as high pre-test probability of underlying sleep disordered breathing
Will arrange out patient follow up with Pulmonary clinic
Chronic pedal edema. Patient reports long standing edema. ?lymphedema vs medication related. PCWP normal
D/c Norvasc, can cause pedal edema
On Lasix currently
OP Pulm FU recommended-information will be left in the chart. He will need radiographic follow-up.
No additional recommendation from the pulmonary perspective.
Sign off

Data:
ECHO 04/2024: Technically limited and suboptimal study. Grossly normal chamber size. Grossly normal left and right ventricular systolic function. Grade 1 diastolic dysfunction. Trivial mitral, tricuspid and pulmonic insufficiency.
ECHO 07/2024: Grade I diastolic dysfunction, LVEF 50-55%, mildly elevated Pulm artery pressure, [address] Chest 08/04/2024: No PE noted. Loculated pleural effusion on right. No Lymphadenopathy
Cardiac Cath 08/06: Severe Tripple vessel CAD
RHC 07/2024: PA 38/15 with mean of 22; PCWP 9, Cardiac output 7.3 with CI 3.36, PVR 1.7
Subjective Data
-
Date of Service:
Date of Service: August 13, 2024
Chief Complaint: Pulmonary Follow Up (Empyema)
Subjective:
No new pulmonary complaints
Remains afebrile
Denies any chest pain
Objective Data
Data Reviewed
Vital Signs / I&O / Oxygen:
Vital Signs
Temp Pulse Resp BP Pulse Ox
98.2 F 79 18 114/69 98
08/13/24 11:09 08/13/24 12:00 08/13/24 11:09 08/13/24 11:09 08/13/24 11:09
Intake and Output
08/12/24 08/13/24 08/14/24
06:59 06:59 06:59
Intake Total 480 / 480 480 / 480
Output Total 1100 / 1100
Balance -620 / -620 480 / 480
SaO2 98
Nasal Cannula flow liters per 2
minute
Physical Exam
General: Comfortable and Other (NAD)
HEENT: Normocephalic, Anicteric and Moist Mucous Membranes
Cardiovascular: S1-S2, Regular Rhythm and Peripheral Edema (bilateral, 3+, baseline)
Respiratory: Clear and Other (Somewhat decreased air entry in the right lower lobe)
GI: Soft, Non Distended and Non Tender
Neurology: Awake, Alert, Oriented, AO x 3 and No Motor Deficits
Skin: Warm, Dry and Good Color
Labs/Micro/Reports
Lab Data
08/12/24 04:00
08/12/24 04:00
Microbiology
08/08/24 15:18 Blood/Venous Blood Culture - Preliminary
No Growth in 4 days- Final report to follow
08/08/24 15:19 Blood/Venous Blood Culture - Preliminary
No Growth in 4 days- Final report to follow
08/08/24 14:02 Pleural Fluid Body Fluid Culture - Final
No Growth After 72 Hours
08/08/24 14:02 Pleural Fluid Gram Stain - Final
08/10/24 08:40 Nose Nasal Screen MRSA (PCR) - Final
MRSA not detected - performed by PCR methodology.
[2024-08-13 12:57] LABS: Glucose - Point of Care 150 mg/dl (70-99)
--- NOTE | 2024-08-13 14:26 | PN.IRAD.UPD ---
Update Note - IRAD
- -
Right arm PICC line removed over a wire and replaced with a new DIRECTOR OF PSYCHOLOGY with Xray guidance into correct position. PICC discharge form given to the patient and reviewed.
--- NOTE | 2024-08-13 15:08 | W.PN.CD ---
Today's Communication / Plan
-
Continue medical management.
CABG as an outpatient.
Per ID note, ABX will conclude on 09/03/2024.
Coronary angiography images sent via [employer].
I have yet to review images due to password issues.
Impression / Plan
-
Impression/Plan: 68 y/o male with HTN, HLD and NIDDM admitted to [facility] with SOB, found to have right sided PNA complicated by empyema and abnormal troponin, subsequently diagnosed with 3V CAD and transferred for further management.
#CAD/Troponin elevation
-Chronic, progressive.
-CAD is reportedly severe.
-He has no CP.
-Troponin peaked at 3995 at [facility] ([facility] equivalent of 3.995).
-Echo reportedly technically difficult, unable to assess RWMA, but LVEF preserved (50-55%).
-troponin elevation suspected to be a type II event and not acute coronary syndrome
-Continue ASA, statin, BB.
- monioring and txof anemia
-Per notea - Dr. Kebede spoke to Dr. Burns( manager access at [facility]) Based on the patient's troponin pattern and his coronary artery disease, they agreed that this event is NOT ACS, but rather a type 2 event to be managed medically. Once
PNA/empyema definitively managed will discuss revasc either surgical/PCI/hybrid? Awaiting mental health nurse practitioner with a copy of the patient's films, hopeful today. Ideally, we will let the patient recover from his PNA and allow him to get full revascularization
and avoid worsening hemoptysis from required DAPT for PCI.
#PNA/Empyema
-Pleural fluid positive for GPC's (08/05/2024).
-Chest tube placed with chemical decortication (tPA).
-Continue ABX per ID.
-Chest tube removed 08/11/2024.
#LE wound
-Unclear duration.
-Wound care consulted.
#LE edema
-Chronic, stable per patient.
#Anemia:
-Hbg 9.1 from 7.9.
-Management per primary.
#HTN:
-Chronic, stable.
-Continue medical therapy and monitor.
#Dyslipidemia
-Continue statin.
#DM
-HbA1c = 7.2%.
-Management per primary team.
Subjective/Interval History:
Weight down 0.7 kg from yesterday, 1.8 kg from zenith.
ABX transitioned to ceftriaxone and metronidazole (S. intermedius without sensitivities).
The patient had a PICC placed but this caused significant discomfort. PICC was repositioned this afternoon.
Transaminitis continues to improve.
Data:
[facility] Echo, 05/13/2024:
CONCLUSIONS
Technically limited and suboptimal study.
Grossly normal chamber size.
Grossly normal left and right ventricular systolic function.
Grade 1 diastolic dysfunction.
Trivial mitral, tricuspid and pulmonic insufficiency.
Cardiac Catheterization 08/06/24:
Severe triple vessel CAD (details in physical chart)
Chest Tube Placement, 08/08/2024:
IMPRESSION:
1. Successful ultrasound and fluoroscopically guided placement of a right chest tube, yielding 30 mL of dark serous nonpurulent fluid.
2. TPA and dornase were then infused into the chest tube immediately following placement (please see separate report).
Physical Exam
Vital Signs/Labs
Vital Signs
Temp Pulse Resp BP Pulse Ox
36.7 C 95 18 146/72 97
08/13/24 13:40 08/13/24 14:26 08/13/24 14:26 08/13/24 14:26 08/13/24 14:26
08/12/24 08/13/24 08/14/24
11:59 11:59 11:59
Actual Weight 103 kg 102.3 kg
08/12/24 04:00
08/12/24 04:00
Magnesium 1.7 mg/dl (1.6-2.3) 08/10/24 05:15
Triglycerides 231 mg/dl (10-149) H 08/09/24 02:51
08/08/24
04:09
Gkn-P-Rfojvsquydd Pept 1500
Physical Exam
Constitutional: No acute distress and Comfortable
EENT: Anicteric and Moist mucous membranes
Cardiovascular: Rhythm & rate is regular, JVD pressure is normal, Pedal edema present, S1S2 is normal and Murmur/rub/gallop absent
Respiratory: Respiratory effort normal and Lungs clear to auscul.
GI: Soft, Distention absent, Flat, Non tender and Normal bowel sounds
Neuro/Psych: AO x 3
Data Reviewed
-
Date of Service: August 13, 2024
Medical Decision Making: Reviewed Test Results, Independent Historian Assessment and Test Interpretation
EKG: Tracing Personally Visualized and interpreted and Report Reviewed by me
X-Ray/CT/US/MRI/NUC/PET: Image Personally Visualized and interpreted and Report Reviewed by me
Labs: Labs Reviewed by me
Old Records: Reviewed
--- NOTE | 2024-08-13 16:13 | CM ---
Addendum entered by Shantel Veliz 08/14/24 14:15:
pt agrreeable to do home iv antibx, family assisting him with cost. for dc to home today, [facility] in room doing teaching
Original Note:
mult calls and texts. [facility] set up for a dc tomorrow, copay is$520/wk. pts states they cannot afford this. looked into rehab and OP infusion rooms. he refuses goingto a rehab. OP infusion room would need to be set up a day in advance and
earliest he can be dc'ed would be sunday to have both IV Infusion room and ED for weekends set up. the [facility] infusion room would be [place] from [place] ([place] [phone]) if he decides he want s that option i can call [facility] to see about [facility].
pt's preference is to go home, he needs to discuss with his and son this evening to see if he can get help from family to cover his copay at home. cm to f/u in AM
[2024-08-13 16:31] LABS: Glucose - Point of Care 186 mg/dl (70-99)
[2024-08-13] MEDS: STERILE WATER FOR INJECTION IV (18:15)
[2024-08-13] MEDS: LOVENOX 40 MG SC (18:16)
[2024-08-13] MEDS: LIPITOR 20 MG PO (18:16)
[2024-08-13] MEDS: NOVOLOG FLEXPEN-MODERATE RESISTANCE 1 UNITS SC (18:17)
--- NOTE | 2024-08-13 19:34 | PTCARENOTE ---
Received pt post Picc placement in IR. VSS. RUE Picc w/ dressing clean, dry and intact. Pt c/o minimal discomfort in his RUE, due to Picc line. Offerred tylenol and comfort measures. RUE on pillow for comfort. Will monitor.
[2024-08-13 21:49] LABS: Glucose - Point of Care 80 mg/dl (70-99)
[2024-08-13] MEDS: ROBITUSSIN 100 MG PO (22:20)
--- NOTE | 2024-08-14 02:45 | PTCARENOTE ---
Tele remains SR, HR in the 70-80s at rest. Lungs clear throughout, sating 98% RA. Has an occasional THORACIC SURGEON cough, administered PRN Robitussin. See AMITA for details. Patient ambulating self in room. Aware of POC, call adams within reach.
[2024-08-14 04:01] VITALS: BP 135/77
[2024-08-14 04:15] VITALS: BMI 32.4
[2024-08-14 04:41] LABS: ALT (SGPT) 113 U/L (0-50); AST (SGOT) 54 U/L (17-59); Albumin 2.6 g/dl (3.5-5.0); Alkaline Phosphatase 158 U/L (38-126); Direct Bilirubin 0.3 mg/dl (0.0-0.4); Total Bilirubin 0.5 mg/dl (0.2-1.3); Total Protein 5.8 g/dl (6.3-8.2)
[2024-08-14 07:32] VITALS: BP 143/79
[2024-08-14 07:41] LABS: Glucose - Point of Care 66 mg/dl (70-99)
[2024-08-14] MEDS: ZYLOPRIM 300 MG PO (08:15)
[2024-08-14] MEDS: LASIX 40 MG PO (08:15)
[2024-08-14] MEDS: COREG 12.5 MG PO (08:16)
[2024-08-14] MEDS: ASPIR LOW (ENTERIC COATED) 81 MG PO (08:16)
[2024-08-14] MEDS: FLAGYL 500 MG PO (08:17)
[2024-08-14] MEDS: GLUCOTROL 10 MG PO (08:21)
[2024-08-14] MEDS: NOVOLOG FLEXPEN-MODERATE RESISTANCE SC ×2 (08:32→12:35)
--- NOTE | 2024-08-14 09:33 | W.PN.ID1 ---
Date of Service
Date of Service: August 14, 2024
Today's Communication
- c/w ceftriaxone 2 gm iv q24 and metronidazole 500 mg po bid x 4 weeks (through 09/03)
follow up in clinic in 5-6 weeks
- follow clinically
Assessment / Plan
R Sided Empyema
Pulmonary HTN
CAD
- has some tenderness over the R arm distal to the R picc line; PICC is due for repositioning later today
- c/w ceftriaxone 2 gm iv q24 and metronidazole 500 mg po bid x 4 weeks (through 09/03)
follow up in clinic in 5-6 weeks
- follow clinically
Chief Complaint
-: Other (empyema)
Subjective / Review of Systems
afebrile
bp stable
s/p repositioning of PICC and no longer tender
Vital Signs / Physical Exam
Vital Signs
Vital Signs
Temp Pulse Resp BP Pulse Ox
98.0 F 86 18 143/79 97
08/14/24 07:30 08/14/24 08:00 08/14/24 07:30 08/14/24 07:32 08/14/24 07:32
Physical Exam
Constitutional: No Acute Distress
Cardiovascular: Regular Rate and S1/S2; Negative Murmur or Rub
Pulmonary: Clear and Symmetric; Negative Wheezes or Rales
Gastrointestinal: Soft, Non Tender, Non Distended and Normal Bowel Sounds
Skin: Warm and Dry; Negative Rash or Jaundice
Objective Data
Lab Data
Lab Results
08/12/24 04:00
08/12/24 04:00
Estimated Creat Clear 86 ml/min 08/12/24 04:00
Total Bilirubin 0.5 mg/dl (0.2-1.3) 08/14/24 04:07
AST 54 U/L (17-59) 08/14/24 04:07
ALT 113 U/L (0-50) H 08/14/24 04:07
Alkaline Phosphatase 158 U/L (38-126) H 08/14/24 04:07
Most recent labs reviewed.
Micro Results:
08/08/24 15:18 Blood Culture - Final
Blood/Venous No Growth - Final Report
08/08/24 15:19 Blood Culture - Final
Blood/Venous No Growth - Final Report
08/08/24 14:02 Body Fluid Culture - Final
Pleural Fluid No Growth After 72 Hours
Gram Stain - Final
08/10/24 08:40 Nasal Screen MRSA (PCR) - Final
Nose MRSA not detected - performed by PCR methodology.
--- NOTE | 2024-08-14 09:42 | W.PN.CD ---
Today's Communication / Plan
-
Hold home amlodipine.
Start sacubitril/valsartan 24/26 mg BID.
Start dapagliflozin 10 mg daily.
Case management consult.
BMP in one week.
Discuss revascularization strategy with CTS (outpatient appointment).
Impression / Plan
-
Impression/Plan: 68 y/o male with HTN, HLD and NIDDM admitted to [facility] with SOB, found to have right sided PNA complicated by empyema and abnormal troponin, subsequently diagnosed with 3V CAD and transferred for further management.
#CAD/Troponin elevation
-Chronic, progressive.
-CAD is reportedly severe.
-He has no CP.
-Troponin peaked at 3995 at [facility] ([facility] equivalent of 3.995).
-Echo reportedly technically difficult, unable to assess RWMA, but LVEF preserved (50-55%).
-troponin elevation suspected to be a type II event and not acute coronary syndrome
-Continue ASA, statin, BB.
- monioring and txof anemia
-I spoke to Dr. Burns( armhole feller handstitching machine at [facility]) and I have reviewed the patient's angiogram. Based on the patient's troponin pattern and his coronary artery disease, they agreed that this event is NOT ACS, but rather a type 2 event to be
managed medically.
-Once PNA/empyema definitively managed will discuss revasc (surgical/PCI/hybrid?). LAD and LCx are both approachable percutaneously and the LAD is a good surgical target. The RCA is a poor PCI candidate, but echo suggests possible chronic infarct
(hypokinesis, echobright). I will discuss with CTS.
#ICMO
-New diagnosis.
-LVEF 40-50% with inferior/inferoseptal hypokinesis.
-D/C home amlodipine.
-Start sacubitril-valsartan 24/26 BID and dapagliflozin 10 mg daily. Case management consult.
-Continue furosemide.
-BMP in one week to monitor renal function.
#PNA/Empyema
-Pleural fluid positive for GPC's (08/05/2024).
-Chest tube placed with chemical decortication (tPA).
-Continue ABX per ID.
-Chest tube removed 08/11/2024.
#LE wound
-Unclear duration.
-Wound care consulted.
#LE edema
-Chronic, stable per patient.
-Continue furosemide.
#Anemia:
-Hbg 9.1 from 7.9.
-Management per primary.
#HTN:
-Chronic, stable.
-Continue medical therapy and monitor.
#Dyslipidemia
-Continue statin.
#DM
-HbA1c = 7.2%.
-Management per primary team.
#Dispo
-Discharge per patient report.
Subjective/Interval History:
I have reviewed the patient's films. There is significant LAD disease. The LCx is essentially an AV groove vessel only with an 80% proximal vessel lesion and an RCA LANDSCAPE DRAFTER collateralized from the left system.
Echo shows ICMO, LVEF 40-50%, with inferior/inferoseptal hypokinesis, some echobrightening (scar).
BP remains mildly elevated (140's).
Data:
[facility] Echo, 05/13/2024:
CONCLUSIONS
Technically limited and suboptimal study.
Grossly normal chamber size.
Grossly normal left and right ventricular systolic function.
Grade 1 diastolic dysfunction.
Trivial mitral, tricuspid and pulmonic insufficiency.
Cardiac Catheterization 08/06/24:
Severe triple vessel CAD (details in physical chart)
Chest Tube Placement, 08/08/2024:
IMPRESSION:
1. Successful ultrasound and fluoroscopically guided placement of a right chest tube, yielding 30 mL of dark serous nonpurulent fluid.
2. TPA and dornase were then infused into the chest tube immediately following placement (please see separate report).
Physical Exam
Vital Signs/Labs
Vital Signs
Temp Pulse Resp BP Pulse Ox
36.7 C 86 18 143/79 97
08/14/24 07:30 08/14/24 08:00 08/14/24 07:30 08/14/24 07:32 08/14/24 07:32
08/12/24 08/13/24 08/14/24
11:59 11:59 11:59
Actual Weight 103 kg 102.3 kg 102.4 kg
08/12/24 04:00
08/12/24 04:00
Magnesium 1.7 mg/dl (1.6-2.3) 08/10/24 05:15
Triglycerides 231 mg/dl (10-149) H 08/09/24 02:51
08/08/24
04:09
Udn-A-Qphcktslpsy Pept 1500
Physical Exam
Constitutional: No acute distress and Comfortable
EENT: Anicteric and Moist mucous membranes
Cardiovascular: Rhythm & rate is regular, JVD pressure is normal, Pedal edema present, S1S2 is normal and Murmur/rub/gallop absent
Respiratory: Respiratory effort normal, Lungs clear to auscul., Wheeze Absent, Crackles Absent and Rhonchi Absent
GI: Soft, Distention absent, Flat, Non tender and Normal bowel sounds
Neuro/Psych: AO x 3
Data Reviewed
-
Date of Service: August 14, 2024
Medical Decision Making: Reviewed Test Results, Independent Historian Assessment and Test Interpretation
EKG: Tracing Personally Visualized and interpreted and Report Reviewed by me
Echo: Tracing Personally Visualized and interpreted and Report Reviewed by me
X-Ray/CT/US/MRI/NUC/PET: Image Personally Visualized and interpreted and Report Reviewed by me
Medical Tests (PFT, Pathology etc): Image Personally Visualized and interpreted and Report Reviewed by me
Labs: Labs Reviewed by me
Old Records: Reviewed
[2024-08-14 10:35] VITALS: BP 122/76
--- NOTE | 2024-08-14 10:35 | PN.CDI ---
CDI
- -
CDI:
Physician Documentation Request
Admit Date: 08/07/24 15:21
Dear Doctor Carlos,
Please review the following and provide your response in the progress notes.
Clinical Indicators:
Pt admitted with Pneumonia with empyema on RLL
08/13 ID: 'body fluid gram stain here negative and culture no growth to date - isolate from [facility] pleural fluid was S intermedius ...- will continue with unasyn...will transition to ceftriaxone 2 gm iv q24 and metronidazole 500 mg po bid x 4 weeks.'
08/13 pulmonary: ' Apparently grew Streptococcus intermedius on on initial culture from [facility].'
Based on the above, could you clarify in the Progress Notes further specificity regarding the known, suspected or likely type of pneumonia you are treating (recognizing the specific organism may not be known)?
Examples
Strep Pneumonia - indicate if strep B, strep pneumoniae or other type
Other organism - specify known or suspected type
Other type
Use of terms such as suspected, likely, concern for, or probable (associated with a specific diagnosis that is being evaluated, monitored, or treated as if it exists) are acceptable and can be coded in the inpatient setting, when documented at the
time of discharge.
Thank you,
Marian Phelps RN, BSN
CDI Specialist
[employer]
Please use your independent medical judgment in providing your response.
[2024-08-14 10:41] LABS: Glucose - Point of Care 138 mg/dl (70-99)
[2024-08-14] MEDS: FARXIGA 10 MG PO (11:05)
[2024-08-14] MEDS: ENTRESTO 24 MG/26 MG 1 TAB PO (11:05)
--- NOTE | 2024-08-14 12:14 | W.PN.HOSP.TC ---
Today's Communication/Plan
-
dc
Assessment / Plan
Assessment / Plan
68yo M with PMHx of gout, COPD, colon CA s/p resection, HTN, HLD, hypothyroidism, remote Hx of DVT transferred from [facility] for R sided empyema and triple vessel coronary disease mgmt. Had R chest tube placed on 08/08/24 and continued on Abx.
Cardiology will eval for further mgmt f tripple vessel CAD upon treatment of empyema. CHest tube removed on 08/11/24. Pleural Cx from [facility] grew S.intermedius. Cardiology will plan CABG upon d/c and functional level improvement. Repeated CT chest upon
discharge without worsening. As per agreement with pulm and CTS - medically stable for D/C. to repeat CT chest with pulm in 4-6 weeks. CM arranged home infusions. Patient agreeable to cost provided by .
A/P:
#Staphylococcal Pneumonia with empyema on RLL
s/p chest tube - removed on 08/11/24
Bcx and fluid Cx neg
ID for Abx mgmt: S.intermedius on cultures from [facility] - Ceftriaxone and Flagyl till 09/03/24, PICC to be placed, CM for home infusion
Pulm consult: repeat CXR and if no reaccumulation - CT in 6-8 weeksupon d/c - discussed with patient and he verbalized understanding of the instructions
#Type 2 MO
as per nurse case management assessment - will treat CAP with empyema first before attempting further mgmt, planned for outpatient workup
ASA, statin, BB, telemetry
#Transaminitis with alk.phos elevation
resolving
most likely for DILI 2/2 Unasyn
Hepatitis panel neg
US RUQ: no biliary dilation, gall bladder with sludge, no signs or symptoms of cholecystitis, normal liver echogenicity
#b/l LE chronic lymphedema
compression stockings
DM type 2 with neuropathy
Accuchecks, Insulin SS, DM diet
cont Glipizide
Stop pioglitazone
#Essential HTN
#Gout
#COPD
cont home meds
DVT ppx on lovenox
FUll code
I have spent at least 36min reviewing chart, test results, communication with consultants and providing direct patient care
Anticipated Discharge: Today
Subjective/Interval History
-
Date of Service: August 14, 2024
Objective Data
-
Labs:
Laboratory Results
08/14/24
04:07
Total Bilirubin 0.5
AST 54
ALT 113 H
Alkaline Phosphatase 158 H
Vital Signs:
Vital Signs
Temp Pulse Resp BP Pulse Ox
98.7 F 86 18 143/79 98
08/14/24 11:10 08/14/24 08:00 08/14/24 11:10 08/14/24 07:32 08/14/24 11:10
I&O
08/13/24 08/14/24 08/15/24
06:59 06:59 06:59
Intake Total 480 / 480 480 / 480
Balance 480 / 480 480 / 480
Review of Systems
-
History Source: Patient
All other systems: Reviewed and negative
Physical Exam
-
General: Comfortable
HEENT: Normocephalic
Respiratory: Clear to Auscultation
Psych: Calm
--- NOTE | 2024-08-14 12:25 | W.DCSUMMARY ---
Discharge Summary
Discharge Data
Date of Admission: 08/07/24
Date of Discharge: 08/14/24
-
Pending Results: No
Hospital Course
68yo M with PMHx of gout, COPD, colon CA s/p resection, HTN, HLD, hypothyroidism, remote Hx of DVT transferred from [facility] for R sided empyema and triple vessel coronary disease mgmt. Had R chest tube placed on 08/08/24 and continued on Abx.
Cardiology will eval for further mgmt for tipple vessel CAD upon treatment of empyema as outpatient. Echo in [facility] was technically difficult, but with apparently EF of 50%. CHest tube removed on 08/11/24. Pleural Cx from [facility] grew S.intermedius.
Cardiology will plan CABG upon d/c and functional level improvement. Repeated CT chest upon discharge without worsening. As per agreement with pulm and CTS - medically stable for D/C. to repeat CT chest with pulm in 4-6 weeks. CM arranged home
infusions and confirmed that Abx to be delivered home after last dose on 08/14/24. Patient agreeable to cost provided by .
A/P:
#Staphylococcal intermedius Pneumonia with empyema on RLL
#Type 2 DC
#Transaminitis with alk.phos elevation
#b/l LE chronic lymphedema
#Essential HTN
#Gout
#COPD
Discharge Plan
-
Patient Disposition: Home with Home Care
Discharge Diagnosis/Procedures: Pneumonia with empyema
Diet: Low Cholesterol
Activity: As tolerated
Others Tests: repeat CT chest in 4-6 weeks with vulcanizer
Referrals:
[facility] [Outside] (PICC care and lab draws)
[facility] [Outside] (IV antibiotic medications)
Shruthi Branham MD [Active] - in four to six weeks
Umesh Gallegos MD [Active] - 09/15/24 9:30 am (CABG evaluation)
UNKNOWN - PT NOT,INTERVIEWE [Family Provider] -
Prescriptions:
New
Entresto 24-26 mg Tablet
1 tab PO BID Qty: 60 0RF
dapagliflozin propanediol 10 mg Tablet
10 mg PO DAILY Qty: 30 0RF
metronidazole 500 mg Tablet
500 mg PO BID Qty: 63 0RF
ceftriaxone 2 gram Recon Soln
2,000 mg IV Q24H 21 Days Qty: 0 0RF
Continued
furosemide 40 mg Tablet
40 mg PO DAILY
acetaminophen [Tylenol] 325 mg Tablet
650 mg PO Q6H PRN (Reason: mild pain)
atorvastatin 20 mg Tablet
20 mg PO QPM
carvedilol 12.5 mg Tablet
12.5 mg PO BID
albuterol sulfate 2.5 mg /3 mL (0.083 %) Solution For Nebulization
2.5 mg INHALATION Q4H PRN (Reason: wheezing)
glipizide 10 mg Tablet
10 mg PO BID
aspirin 81 mg Tablet,Delayed Release (Dr/Ec)
81 mg PO DAILY
guaifenesin 100 mg/5 mL Liquid
100 mg PO Q4H PRN (Reason: cough)
allopurinol 300 mg Tablet
300 mg PO DAILY
melatonin 5 mg Tablet
5 mg PO HS PRN (Reason: sleep)
Breztri Aerosphere 160-9-4.8 mcg/actuation Hfa Aerosol Inhaler
2 inh INHALATION DAILY
Discontinued
pioglitazone 15 mg Tablet
15 mg PO DAILY
amlodipine 5 mg Tablet
5 mg PO DAILY
ceftriaxone 1 gram Recon Soln
1 g IV Q24H
irbesartan-hydrochlorothiazide 300-12.5 mg Tablet
1 tab PO DAILY
azithromycin 500 mg Recon Soln
500 mg IV Q24H
methylprednisolone 4 mg Tablets,Dose Pack
0 mg PO PER PKG DIR
Discharge Orders:
Discharge Patient (As Directed); Ordered 08/14/24
Ordered By: Hakeem Gonzalez
Care Plan Goals
Care Plan Goals:
Problem: Readiness for enhanced knowledge related to diagnosis and treatment plan
Goal: Understand your diagnosis and treatment plan needs, including medications if applicable.
Instructions: Know your diagnosis, underlying causes and treatment plan options, including medications if applicable. Consult with your health care team to learn about your diagnosis and treatment plan, including medications if applicable.
Discharge Date and Time
Print Language: ARABIC
[2024-08-14] MEDS: ROCEPHIN 2000 MG IV (12:43)
[2024-08-14] MEDS: STERILE WATER FOR INJECTION 20 ML IV (12:43)
--- NOTE | 2024-08-14 14:16 | CM ---
priced entresto and farxiga with pts [facility] PP [phone] # [id number],
entresto BID- tier 3- $248-first month- of that he has a $140 remaining deductible. after that he pays 19% of the cost of the med - $134
Farxiga- tier 3- first month $228- (deductible is $140) then he pays 19% of the cost- $114/mo
---until he has a total OOP of $2000- then he goes into catastrophic phase and everything is covered.
he only pays the remaining deductible garcia on one med.
explained the part D plan to pt/. they are agreeable to this garcia for both meds.
[2024-08-14 14:43] VITALS: BP 132/72
--- NOTE | 2024-08-14 16:22 | PTCARENOTE ---
Pt received this am oob ad min. Denies any pain or discomfort. Right arm Picc WNL. SR, rate in the 70's to 80's. Home infusion nurse in to instruct pt's on home antibiotics. Pt discharged to home with his . Discharge instructions given and
reviewed with good understanding and all questions answered.
== END 2024-08-14 16:00 | disposition home health service (06) | DRG 177 ==
LOC: IVU 15:21
PROVIDERS: Family Medicine; Radiology Diagnostic Radiology; Radiology Vascular & Interventional Radiology; Student in an Organized Health Care Education/Training Program; ADMITTING PHYSICIAN Hospitalist; ATTENDING PHYSICIAN Internal Medicine; CONSULT PHYSICIAN Internal Medicine; CONSULT PHYSICIAN Internal Medicine Cardiovascular Disease; CONSULT PHYSICIAN Student in an Organized Health Care Education/Training Program
PROC: 0W9930Z Drainage of Right Pleural Cavity with Drainage Device, Percutaneous Approach (ICD-10-PCS; 2024-08-08)
PROC: 3E0L317 Introduction of Other Thrombolytic into Pleural Cavity, Percutaneous Approach (ICD-10-PCS; 2024-08-08)
PROC: B5181ZA Fluoroscopy of Superior Vena Cava using Low Osmolar Contrast, Guidance (ICD-10-PCS; 2024-08-12)
PROC: 02HV33Z Insertion of Infusion Device into Superior Vena Cava, Percutaneous Approach (ICD-10-PCS; 2024-08-12)
PROC: 02PY33Z Removal of Infusion Device from Great Vessel, Percutaneous Approach (ICD-10-PCS; 2024-08-13)
PROC: B5191ZA Fluoroscopy of Inferior Vena Cava using Low Osmolar Contrast, Guidance (ICD-10-PCS; 2024-08-13)
DX: J86.9 Pyothorax without fistula (principal); I21.A1 Myocardial infarction type 2; J18.9 Pneumonia, unspecified organism; J44.0 Chronic obstructive pulmonary disease with (acute) lower respiratory infection; N17.9 Acute kidney failure, unspecified; J90 Pleural effusion, not elsewhere classified; J98.11 Atelectasis; B95.8 Unspecified staphylococcus as the cause of diseases classified elsewhere; I89.0 Lymphedema, not elsewhere classified; I10 Essential (primary) hypertension; M10.9 Gout, unspecified; Z79.84 Long term (current) use of oral hypoglycemic drugs; E78.00 Pure hypercholesterolemia, unspecified; E03.9 Hypothyroidism, unspecified; Z86.718 Personal history of other venous thrombosis and embolism; Z85.038 Personal history of other malignant neoplasm of large intestine; I25.10 Atherosclerotic heart disease of native coronary artery without angina pectoris; E11.9 Type 2 diabetes mellitus without complications; Z79.82 Long term (current) use of aspirin; Z95.1 Presence of aortocoronary bypass graft; Z79.899 Other long term (current) drug therapy; Z82.49 Family history of ischemic heart disease and other diseases of the circulatory system
CPT/HCPCS: 88305; 32557; 32561; 36584; 71045; 71046; 71250; 76700; 80048; 80053; 80076; 80202; 82607; 82728; 82746; 82962; 83036; 83540; 83550; 83615; 83735; 83880; 83986; 84155; 84157; 84425; 84478; 85025; 85027; 85045; 86704; 86706; 86803; 87015; 87040; 87070; 87205; 87340; 87641; 88112; 89051; 93005; 99152; 99153; C1729; C1751; C1769; J2997

== ENCOUNTER 2024-09-26 13:28 | Emergency (ER) | payer MEDICARE, BC, SELFPAY ==
[2024-09-26 13:32] VITALS: BP 152/88
[2024-09-26 13:50] LABS: % Basophils 0.5 % (0-2); % Eosinophils 1.5 % (0-6); % Immature Granulocytes 0.3 % (0-0.5); % Neutrophils 80.7 % (42.2-75.2); Absolute Basophils 0.1 10^3/uL (0-0.2); Absolute Eosinophils 0.2 10^3/uL (0-0.7); Absolute Lymphocytes 1.3 10^3/uL (1.2-3.4); Absolute Monocytes 0.9 10^3/uL (0.1-0.6); Absolute Neutrophils 10.2 10^3/uL (1.4-6.5); Hematocrit 35.3 % (39.0-52.0); Hemoglobin 11.8 g/dL (13.0-18.0); Mean Corp Hgb Conc. 33.4 g/dL (33.0-37.0); Mean Corpuscular Hgb 36.1 pg (27.0-31.0); Mean Platelet Volume 10.2 fL (7.4-10.4); Nucleated Red Blood Cells % 0 % (-); Platelet Count 137 10^3/uL (130-400); Red Blood Cell Count 3.27 10^6/uL (4.70-6.10); Red Cell Dist. Width 15.3 % (11.5-14.5); White Blood Cell Count 12.7 10^3/uL (4.8-10.8)
[2024-09-26 14:06] LABS: ALT (SGPT) 31 U/L (0-50); AST (SGOT) 23 U/L (17-59); Albumin 3.9 g/dl (3.5-5.0); Alkaline Phosphatase 116 U/L (38-126); Blood Urea Nitrogen 25 mg/dl (9-20); Calcium 9.2 mg/dl (8.4-10.2); Carbon Dioxide 25 mmol/L (22-30); Chloride 111 mmol/L (98-107); Glucose 117 mg/dl (70-99); Potassium 4.6 mmol/L (3.5-5.1); Sodium 144 mmol/L (135-145); Total Bilirubin 0.7 mg/dl (0.2-1.3); Total Protein 7.2 g/dl (6.3-8.2); eGFR > 60.00
--- NOTE | 2024-09-26 17:54 | ED.GENMED ---
History of Present Illness
General
Chief Complaint: DVT/Possible Blood Clot
Source: patient
Exam Limitations: none
Time Seen by Provider: 09/26/24 16:25
Nursing documentation reviewed up to this point in time: agreed with
History of Present Illness
History of Present Illness:
Patient had an outpatient US for venous mapping today. He is scheduled for bypass surgery next month with Dr. Gallegos. He was notified that US revealed blood clots bilaterally and he was then referred to ED. He denies any CP/pressure, SOB. He has
chronic bilateral lower extremity edema and states the swelling is unchanged. To ED accompanied by spouse.
Past History
Past History
ED Past Medical History: CAD, HTN, Hypercholesterolemia and NIDDM
Review of Systems
Review of Systems
Allergies reviewed?: Yes
All Other Systems: ROS reviewed and negative except as documented in HPI and ROS
Constitutional: Reports no symptoms
EENT: Reports no symptoms
Respiratory: Reports no symptoms
Cardiac: Reports no symptoms
ABD/GI: Reports no symptoms
: Reports no symptoms
Musculoskeletal: Reports no symptoms
Skin: Reports no symptoms
Neurological: Reports no symptoms
Psychiatric: Reports no symptoms
Phy Exam
General Physical Exam
General Presentation: well appearing and no apparent distress
General age: appears stated age
General Skin: warm and dry
General Habitus: normal
General Mental: alert
Cardiovascular Exam
Cardiovascular Exam: regular rate/rhythm
Pulmonary Exam
Pulmonary Exam: lungs clear and no respiratory distress
Musculoskeletal Exam
Musculoskeletal Exam: full ROM, edema (chronic edema BLE), neuro vasc intact (Bilateral DP/PT by doppler) and other (No erythema)
Skin Exam
Skin Exam: normal color, warm/dry and no rash
Psychiatric Exam
Psychiatric Exam: normal mood/affect
Course
Orders/Labs/Results
Orders:
Orders
09/26/24 13:43
CBC/With Diff [Complete Blood Count/With Diff] Urgent
CMP [Comprehensive Metabolic Panel] Urgent
09/26/24 17:42
Apixaban [Eliquis] 10 mg PO NOW STA
Abnormal Lab Results
09/26/24
13:43
WBC 12.7 H 10^3/uL
(4.8-10.8)
RBC 3.27 L 10^6/uL
(4.70-6.10)
Hgb 11.8 L g/dL
(13.0-18.0)
Hct 35.3 L %
(39.0-52.0)
MCV 108.0 H fL
(80.0-94.0)
MCH 36.1 H pg
(27.0-31.0)
RDW 15.3 H %
(11.5-14.5)
Absolute Neuts (auto) 10.2 H 10^3/uL
(1.4-6.5)
Absolute Monos (auto) 0.9 H 10^3/uL
(0.1-0.6)
Neutrophils % 80.7 H %
(42.2-75.2)
Lymphocytes % 10.0 L %
(20.5-51.1)
Chloride 111 H mmol/L
(98-107)
BUN 25 H mg/dl
(9-20)
Glucose 117 H mg/dl
(70-99)
09/26/24 13:43
09/26/24 13:43
Vital Signs
Initial and Last Documented VS:
Initial Vital Signs
Temp Pulse Resp BP Pulse Ox
98.1 F 89 20 152/88 98
09/26/24 13:32 09/26/24 13:32 09/26/24 13:32 09/26/24 13:32 09/26/24 13:32
Last Documented Vital Signs
Temp Pulse Resp BP Pulse Ox
98.1 F 78 18 155/88 99
09/26/24 13:32 09/26/24 18:11 09/26/24 18:11 09/26/24 18:11 09/26/24 18:11
*Radiology
Radiology exam reviewed: radiology read reviewed
*Pulse Oximetry
Patient hypoxic: no
*Critical Care Note
Total Time (30-74mins, 75-104mins- exclusive of procedures): Not Applicable
Update Note
Update Note:
Patient had outpatient US of BLE as part of preop testing for upcoming bypass surgery. US reveals bilateral occlusive thrombus of greater saphenous veins with extension to right common femoral vein. Dr. Gallegos notified of findings. Ok to proceed with
eliquis. Initial dose given in ED. WIll discharge home and will follow up iwth Dr. Gallegos. Patient continues to deny any cp/pressure. No SOB. PUlse ox 98% RA. Given instructions on s/s to return to ED and he is agreeable to plan.
ED Attending Note
-
Portions of this chart may have been created with voice recognition software.� Occasional wrong word or��sound alike� substitutions may have occurred due to the inherent limitations of voice recognition software.
Discharge Plan
Departure
Patient Disposition: Home (Routine Discharge)
Date of Disposition: 09/26/24
Time of Disposition: 17:50
Patient with high blood pressure during this ER visit?: No
Condition: Good
Covid-19: Not Applicable
Discharge Problem:
DVT (deep venous thrombosis)
Instructions: Deep Vein Thrombosis (Blood Clots in the Legs) (DC)
Prescriptions:
New
Eliquis DVT-PE Treat 30D Start 5 mg (74 tabs) tablets,dose pack
See Rx Instructions .ROUTE .COMPLEX Qty: 74 0RF
Rx Instructions:
orally per package directions
No Action
furosemide 40 mg Tablet
40 mg PO DAILY
acetaminophen [Tylenol] 325 mg Tablet
650 mg PO Q6H PRN (Reason: mild pain)
atorvastatin 20 mg Tablet
20 mg PO QPM
carvedilol 12.5 mg Tablet
12.5 mg PO BID
glipizide 10 mg Tablet
10 mg PO BID
aspirin 81 mg Tablet,Delayed Release (Dr/Ec)
81 mg PO DAILY
guaifenesin 100 mg/5 mL Liquid
100 mg PO Q4H PRN (Reason: cough)
allopurinol 300 mg Tablet
300 mg PO DAILY
melatonin 5 mg Tablet
5 mg PO HS PRN (Reason: sleep)
Entresto 24-26 mg Tablet
1 tab PO BID Qty: 60 0RF
dapagliflozin propanediol 10 mg Tablet
10 mg PO DAILY Qty: 30 0RF
Referrals:
Gibran Fuller DO [Family Provider, Family Practice]
Umesh Gallegos MD [Active, Cardiac Surgery] - Call in 1-3 days for appt
Activity Restrictions/Additional Instructions:
Return to the ED immediately for any chest pain/pressure, SOB, or for any further concerns.
Interventions
Interventions:
*Risk Screen - Suicide Last Done: 09/26/24 15:19
*General Assessment Last Done: 09/26/24 13:32
*Neglect/Abuse Screening Last Done: 09/26/24 15:19
*ED- Fall Risk Assessment Last Done: 09/26/24 15:19
*ED COVID-19 Vaccine History Last Done: 09/26/24 15:19
*Nursing Disposition Last Done: 09/26/24 18:18
ED-Peripheral Vascular Assessment Last Done: 09/26/24 15:20
ED-Skin Assessment Last Done: 09/26/24 15:20
Discharge Date and Time
Discharge Date/Time: 09/26/24 18:19
Print Language: BURUNDIAN
[2024-09-26] MEDS: ELIQUIS 10 MG PO (18:09)
[2024-09-26 18:11] VITALS: BP 155/88
== END 2024-09-26 18:19 | disposition home or self-care (01) ==
LOC: EMR 13:28
PROVIDERS: Emergency Medicine; EMERGENCY PHYSICIAN Emergency Medicine; FAMILY PHYSICIAN Family Medicine
DX: I82.493 Acute embolism and thrombosis of other specified deep vein of lower extremity, bilateral (principal); I10 Essential (primary) hypertension; E78.00 Pure hypercholesterolemia, unspecified; E11.9 Type 2 diabetes mellitus without complications; I25.10 Atherosclerotic heart disease of native coronary artery without angina pectoris
CPT/HCPCS: 99283; 80053; 85025

== ENCOUNTER 2024-10-06 05:31 | Inpatient (IN) | payer MEDICARE, BC, SELFPAY ==
[2024-09-26 10:17] LABS: % Basophils 0.4 % (0-2); % Eosinophils 1.7 % (0-6); % Immature Granulocytes 0.4 % (0-0.5); % Lymphocytes 8.8 % (20.5-51.1); % Monocytes 6.9 % (1.7-9.3); % Neutrophils 81.8 % (42.2-75.2); Absolute Basophils 0.1 10^3/uL (0-0.2); Absolute Eosinophils 0.2 10^3/uL (0-0.7); Absolute Immature Granulocytes 0.1 10^3/uL (0-0.05); Absolute Lymphocytes 1.1 10^3/uL (1.2-3.4); Absolute Monocytes 0.9 10^3/uL (0.1-0.6); Absolute Neutrophils 10.6 10^3/uL (1.4-6.5); Hematocrit 36.2 % (39.0-52.0); Hemoglobin 12.2 g/dL (13.0-18.0); Mean Corp Hgb Conc. 33.7 g/dL (33.0-37.0); Mean Corpuscular Hgb 35.9 pg (27.0-31.0); Mean Corpuscular Volume 106.5 fL (80.0-94.0); Nucleated Red Blood Cells % 0 % (-); Platelet Count 139 10^3/uL (130-400); Red Cell Dist. Width 15.2 % (11.5-14.5)
[2024-09-26 10:21] LABS: INR 0.97; PT 13.2 Sec (11.4-14.6)
[2024-09-26 10:22] LABS: APTT 29.3 Sec (23.4-35.0)
[2024-09-26 10:31] LABS: Urine Albumin 2+ (Neg - Trace); Urine Bilirubin Negative (Negative); Urine Character Clear (Clear); Urine Color Yellow; Urine Glucose 3+ (Negative); Urine Ketone Negative (Negative); Urine Leukocyte Negative (Negative); Urine Nitrite Negative (Negative); Urine Occult Blood 1+ (Negative); Urine Urobilinogen Negative (Neg - 1+)
--- NOTE | 2024-09-26 10:41 | CM ---
Chart reviewed. Met with the patient and his in PAT. Reviewed preoperative and postoperative instructions and restrictions, along with showering guidelines. Gave patient 2 soaps. Patient is agreeable to a visit by CT Transitional RN.
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 Plan is for the patient to return home with CT Transitional RN.
[2024-09-26 11:15] LABS: ALT (SGPT) 32 U/L (0-50); AST (SGOT) 25 U/L (17-59); Alkaline Phosphatase 125 U/L (38-126); Blood Urea Nitrogen 25 mg/dl (9-20); Carbon Dioxide 23 mmol/L (22-30); Chloride 111 mmol/L (98-107); Direct Bilirubin 0.2 mg/dl (0.0-0.4); Glucose 97 mg/dl (70-99); Sodium 142 mmol/L (135-145); Total Bilirubin 0.8 mg/dl (0.2-1.3); Total Protein 7.2 g/dl (6.3-8.2); eGFR > 60.00
[2024-09-26 11:56] LABS: Urine Amorphous Seen; Urine Hyaline Cast 0-2 /LPF (0-2)
[2024-09-26 11:58] LABS: Urine White Cell 0-2 /HPF (0-5)
[2024-09-26 12:04] LABS: Glycohemoglobin (HgbA1c) 5.8 % (4.0-5.6)
[2024-09-26 13:18] VITALS: BMI 33.6
[2024-10-06] VITALS (19 sets, daily range): BP systolic 94–166; BP diastolic 62–98; BMI 31.8
[2024-10-06] MEDS: BACTROBAN 2% OINTMENT 1 APPLIC NASAL ×2 (06:07→21:04)
[2024-10-06] MEDS: MAGNESIUM OXIDE 500 MG PO (06:07)
[2024-10-06] MEDS: LOPRESSOR 25 MG PO (06:07)
[2024-10-06] MEDS: PROTONIX 40 MG PO (06:07)
--- NOTE | 2024-10-06 06:16 | W.CVOR.SURPR ---
CVOR Surgeon Immed Pre Op
-
I have examined this patient prior to performance of the scheduled procedure.
The patient's condition is unchanged from the time of the dictated/written History and
Physical and the patient is able to undergo the scheduled procedure.
MIDCAB
--- NOTE | 2024-10-06 06:19 | PTCARENOTE ---
Pt admitted to room 2264. Pt changed into gown. Weight and VS obtained. Pt confirmed NPO status and 2 CHG showers at home. ABO drawn and sent. Admission questions completed. Home medications confirmed. Pt clipped and wiped w/ CHG cloth wipes. Pt w/
significant B/L LE edema. Small open wound noted on right lower leg and minor irritation around groin. Pt oriented to room. Pre op meds administered. Questions encouraged. Family at the bedside.
[2024-10-06 07:33] LABS: ACT+ - POC 118 Seconds (82-134)
[2024-10-06 08:11] LABS: Urine Albumin 3+ (Neg - Trace); Urine Bilirubin Negative (Negative); Urine Character Clear (Clear); Urine Color Yellow; Urine Glucose 2+ (Negative); Urine Ketone Negative (Negative); Urine Leukocyte Negative (Negative); Urine Nitrite Negative (Negative); Urine Occult Blood 2+ (Negative); Urine Specific Gravity 1.015 (<1.030); Urine Urobilinogen Negative (Neg - 1+)
[2024-10-06 08:59] LABS: Urine Squamous Cell 0-2 /LPF (Few)
[2024-10-06 09:00] LABS: Urine Bacteria Few (Negative); Urine Red Blood Cell 0-2 /HPF (0-2); Urine White Cell 0-2 /HPF (0-5)
[2024-10-06 09:10] LABS: B.E. - POC -2.8 mmol/L; Glucose - POC 133 mg/dl (70-99); HCO3 - POC 22 mmol/L (21-28); Hematocrit - POC 30 % PCV (42-52); Hemodilution- POC No; Hemoglobin Calculated - POC 10.2; Ionized Calcium - POC 1.19 mmol/L (1.15-1.33); Lactate - POC 0.92 mmol/L (0.36-0.75); O2 Saturation %Calculated-POC 99.9 % (94-98); PCO2 - POC 39 mmHg (35-48); PO2 - POC 306 mmHg (83-108); Potassium - POC 3.3 mmol/L (3.5-5.1); Sodium - POC 144 mmol/L (136-145); Specimen Type - POC Arterial; pH - POC 7.37 (7.35-7.45)
[2024-10-06 09:18] LABS: ACT+ - POC 441 Seconds (82-134)
--- NOTE | 2024-10-06 09:31 | CM ---
Patient in OR today for CT Surgery.
Reviewed initial assessment. Pt. resides w/ spouse in a private, 2 STH w/ 1 ALFREDO. 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
Antic. DC plan is for home w/ CT Transitional Care RN.
CM to follow.
[2024-10-06 10:38] LABS: B.E. - POC -3.5 mmol/L; Glucose - POC 138 mg/dl (70-99); HCO3 - POC 23 mmol/L (21-28); Hematocrit - POC 29 % PCV (42-52); Hemodilution- POC No; Hemoglobin Calculated - POC 9.8; Ionized Calcium - POC 1.19 mmol/L (1.15-1.33); Lactate - POC 1.72 mmol/L (0.36-0.75); O2 Saturation %Calculated-POC 99.7 % (94-98); PCO2 - POC 47 mmHg (35-48); PO2 - POC 230 mmHg (83-108); Potassium - POC 3.6 mmol/L (3.5-5.1); Sodium - POC 144 mmol/L (136-145); Specimen Type - POC Arterial
[2024-10-06 10:41] LABS: ACT+ - POC 118 Seconds (82-134)
[2024-10-06 11:04] LABS: B.E. - POC -3.1 mmol/L; Glucose - POC 134 mg/dl (70-99); HCO3 - POC 22 mmol/L (21-28); Hematocrit - POC 30 % PCV (42-52); Hemodilution- POC No; Hemoglobin Calculated - POC 10.3; Ionized Calcium - POC 1.13 mmol/L (1.15-1.33); Lactate - POC 1.83 mmol/L (0.36-0.75); O2 Saturation %Calculated-POC 99.7 % (94-98); PCO2 - POC 39 mmHg (35-48); PO2 - POC 213 mmHg (83-108); POC Comment POST; Potassium - POC 3.3 mmol/L (3.5-5.1); Sodium - POC 144 mmol/L (136-145); Specimen Type - POC Arterial; pH - POC 7.36 (7.35-7.45)
--- NOTE | 2024-10-06 11:12 | W.PN.CT.SURG ---
CT Surgery Operative Note
-
CARDIAC SURGERY OPERATIVE REPORT
Preoperative Diagnosis: Coronary Artery Disease with proximal LAD involvement and no conduit bilateral legs
Postoperative Diagnosis: Same
Procedure(s) Performed:
1. Robotic assisted MIDCAB (single-vessel bypass NUNEZ in situ to LAD)
2. Robotic assisted harvest of internal mammary artery with anterolateral mini thoracotomy for CABG
3. Transesophageal echocardiography
4. Transonic Flowprobe assessment of NUNEZ graft
5. Shingling of the rib for exposure, status post reconstruction with surgical plates
Date of Surgery: 10/06/2024
Comorbidities:
1. Coronary artery disease involving the proximal LAD
2. Pneumonia status post empyema requiring tPA and dornase to the right lower lobe
3. History of NSTEMI
4. Hyperlipidemia
5. Hypertension
6. Type 2 diabetes mellitus
7. Morbid obesity BMI greater than 30
8. Peripheral vascular disease with chronic venous stasis changes
9. Bilateral DVTs on anticoagulation
Attending Surgeon: Umesh Gallegos MD, MS
Assistants: Moon Berg PA-C (present and necessary to family law legal assistant, exchanging robotic instruments, retraction, suction, exposure, suture management, and wound closure under my direction)
Anesthesiology: Dale Daily MD and Manju Disla CRNA
Scrub and Circulating RNs: Leslie Corado RN, Loretta Ortiz RN
Group Fitness Assistant Department Head: Sachi Kay CCP
Anesthesia: GETA
EBL: per perfusion records
Products: None
Indication(s) for Procedures: This is a six 68-year-old male who initially was transferred over here with an empyema/entrapped lung and questionable NSTEMI. After multidisciplinary team discussion, it was determined that this was likely
stress-induced/sepsis induced troponin elevation. Given his respiratory status, he was given time to recover and then was seen as an outpatient in the office for consideration of coronary revascularization. As part of his workup vein mapping was
performed which we incidentally found bilateral lower extremity DVTs involving the greater saphenous vein meaning that there was no conduit to use. His lesions were not tight enough for multi tear grafting and so he was given the option of hybrid
revascularization Discussion with interventional cardiology. The STS risk was discussed with the patient in the office and the shared decision making was to pursue a single-vessel bypass using his mammary artery to his LAD via a mini invasive
approach.
Conduit(s) Quality/Internal Diameter:
NUNEZ -semi-skeletonized, flow probe analysis, 40 cc/min, PI of 3.0
Target(s) Quality/Internal Diameter:
LAD -excellent, easily accommodated 2.0 shunt
Findings: Left ventricular ejection fraction preoperatively was 60% with no significant regional wall motion abnormalities following surgery his EF remained the same at 60%. There were no new regional wall motion abnormalities at the inclusion of
the case. In order to facilitate exposure did have the shingle his fourth rib, this was later reconstructed with an 8 hole plate bridging to his sternum. The NUNEZ was harvested in a skeletonized fashion. The mammary graft was verified with
Doppler probe to have excellent signals. Transonic flow probe assessment was performed which demonstrated excellent flow and low pulsatility indices.
Description of Procedure: The patient was taken to the operating room. Their identity and procedure to be performed were verified and they were positioned supine on the operating table. Induction via general anesthesia with endotracheal intubation
was performed and central venous access and arterial monitoring were inserted. A preoperative transesophageal echocardiogram was performed to assess cardiac function and valvular function. The patient was then prepped and draped from chin to feet in
a sterile fashion and positioned with left side bumped up and left arm down. A preoperative time-out was performed with all members of the team present. A Veress needle was used to enter the chest after stopping ventilation with the left lung
verified by anesthesia. We started with slow pressure insufflation which they tolerated. An 8 mm port was inserted in the fourth intercostal space laterally and a camera was inserted verifying no intrathoracic iatrogenic injuries. 2 additional
ports(8 mm and 8mm) were placed along the midaxillary line on either side of the camera port. Single 12 mm air seal port was used for the desk assistant to pass instruments and sutures. The robotic platform was then docked and targeted towards the
mammary. The mammary was harvested in a skeletonized fashion. A posterior pericardiotomy was created to facilitate drainage. Once sufficient length was obtained, an anterior pericardiotomy was created to identify the distal target. Full
heparinization was given. 4 Hem-o-evangelist clips were used to occlude and divide the mammary distally at its bifurcation, and a single 2-0 silk suture was used to secure the mammary to the pericardium overlying the LAD target with another Hem-o-evangelist
clip. The robot platform was then undocked and the patient and a left anterior thoracotomy was created over the target vessel. Upon entering the thoracic cavity the mammary and LAD were visible. Given how deep he was, in order to facilitate
exposure I did have to shingled the rib using a distribution tech and thoracotomy retractor was placed to facilitate exposure and a pericardial well was created. The ACT was confirmed to be over 400.
The cardiac suction stabilizer was used to isolate the LAD target. The distal end of the mammary was prepped and beveled to size. We verified orientation and length of the JANELLE and found brisk flow. A coronary arteriotomy was created and enlarged
with coronary og scissors. A 2mm shunt was inserted to facilitate exposure and continued ugashik coronary perfusion. An end-to-side anastomosis was created with a 7-0 prolene and secured with a micro core knot. The bulldog on the mammary was
removed which demonstrated excellent graft flow. The shunt was then remove and demonstrated excellent ugashik flow. Appropriate hemostasis was confirmed. The mammary graft was inspected and was free from kinking or twisting and flowprobe evaluation
demonstrated good flow and PI. A test dose of protamine was administered and the patient was monitored for any adverse reaction before resuming protamine. I then reapproximated the rib using an 8 hole plate and multiple 8 mm and 10 mm screws. A
19F nicci drain into the pericardium and through the posterior pericardiotomy into the left chest. An additional pleural drain was placed through one of the port sites as I had to reconstruct his rib. Fascia was approximated with #1 vicryl
suture. Local analgesia was administered to the surgical sites. The subcutaneous, dermis and epidermis were closed in layers in a running fashion. The skin wound was cleansed and dressed.
All instrument, sponge, and needle counts were confirmed to be correct x 2 at the end of the operation. The patient was transferred to the cardiac intensive care unit extubated in critical but stable condition.
I, Dr. Umesh Gallegos, was present, scrubbed for, and performed all critical elements of this procedure.
Umesh Gallegos MD, MS
Cardiothoracic Surgeon
[facility]
This operative dictation was created using the Netsocket dictation system. Please excuse any grammatical, typographical, or 'sound alike' errors
--- NOTE | 2024-10-06 11:28 | CON.INTV ---
Consultation
Consultation Request
Date/Time Consultation Requested: 10/06/2024 - 105
Date/Time Consultation Performed: 10/06/2024 - 1119
Requesting Provider: Maci Unger NP
Performing Provider: Dr. Hairston
Reason for Consultation: s/p MIDCAB
Medical History
-
Chief Complaint: Elective MIDCAB
History of Present Illness:
68-year-old male with a past medical history of CAD, right sided empyema requiring IV antibiotics + chest tube s/p tPA/dornase (July 2024), hypertension, hyperlipidemia, DM type II, history of colon cancer s/p resection, gout, history of COPD,
anemia and history of DVT who presents for elective coronary artery bypass. Patient known to the cardiothoracic surgery service with last visit on 09/15/[address] Gallegos. Patient was transferred from [facility] to [facility]
on 08/07/2024 for a right-sided empyema with triple-vessel CAD seen on left heart catheterization. He was sent for evaluation for CABG. During that hospitalization, CT surgery recommended time to allow patient to recover from his empyema with
eventual surgical revascularization. The risks and benefits of surgical revascularization were discussed in the office and patient agreed to a surgical intervention. Today, patient underwent a MIDCAB and postoperatively was transferred to the
CVICU for further care. [employer] services consulted for additional management/recommendations.
When I saw the patient, he was resting in bed, intubated on AC/CMV at 14/500/60%/5 with PIP 25 cmH2O, VTe 473 cc and breathing at 14 breaths/min. Currently saturating 100% with BP via A-line 129/68, BP via NIBP: 105/70. Currently sedated on
Precedex 0.5 mcg/kg/hr and Cardene drip is also being started now. He has a left-sided pleural/mediastinal chest tube x 1.
Of note, patient follows with us in the [facility] office with Dr. Branham -posthospitalization visit on 09/10/2024. Patient was seen in the hospital in July 2024 due to a right-sided pneumonia with empyema requiring tPA/dornase. Pleural fluid cultures
were negative. He was seen by ID during that hospitalization and was on ceftriaxone + Flagyl with plans to continue this through 09/03/2024. Patient discharged home with home care on 08/14/2024 and was started on Entresto + Farxiga due to type II IL
(he was initially transferred from [facility] due to the right sided empyema in addition to triple-vessel CAD management). He will follow-up with us again in the office in 6 months.
PMHx: Multivessel CAD, hypertension, hyperlipidemia, DM type II, chronic lymphedema, hypothyroidism, history of colon cancer, history of NSTEMI, history of right-sided empyema due to Staphylococcus intermedius, anemia, history of DVT, shingles,
history of COPD, history of transaminitis
PSHx: Colon resection for colon cancer, right wrist surgery, left knee arthroscopy, cardiac cath, thoracentesis (08/05/2024), right-sided chest tube requiring tPA/dornase (08/08/2024 - chest tube removed 08/11/2024)
Past Medical History
Past Medical History: Other (Above as per HPI)
Past Surgical History: Other (Above as per HPI)
Social History
Tobacco: Non-smoker
Alcohol: Occasional
Drug: None
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
Family History
Family History: CAD (Father (father of an IL at age 66)), Hypertension (Sibling) and Other (Father + sibling: CVA)
Allergies / Home Medications
Allergies
Allergy/AdvReac Type Severity Reaction Status Date / Time
shellfish derived Allergy Itching Verified 09/26/24 13:32
Home Medications
�Medication �Instructions �Recorded �Confirmed �Last Taken �Type
acetaminophen 325 mg tablet 650 mg PO Q6H PRN mild pain 08/07/24 10/06/24 10/03/24 History
(Tylenol)
allopurinol 300 mg tablet 300 mg PO DAILY Gout 08/07/24 10/06/24 10/05/24 History
aspirin 81 mg tablet,delayed 81 mg PO DAILY Blood Clot 08/07/24 10/06/24 10/05/24 History
release Prevention/Tx
atorvastatin 20 mg tablet 20 mg PO QPM High Cholesterol 08/07/24 10/06/24 10/04/24 History
carvedilol 12.5 mg tablet 12.5 mg PO BID Blood Pressure 08/07/24 10/06/24 10/05/24 History
furosemide 40 mg tablet 40 mg PO DAILY 08/07/24 10/06/24 10/04/24 History
glipizide 10 mg tablet 10 mg PO BID 08/07/24 10/06/24 10/05/24 History
guaifenesin 100 mg/5 mL oral liquid 100 mg PO Q4H PRN cough 08/07/24 09/19/24 Unknown History
melatonin 5 mg tablet 5 mg PO HS PRN sleep 08/07/24 09/19/24 08/06/24 21:53 History
dapagliflozin propanediol 10 mg 10 mg PO DAILY #30 tabs 08/14/24 10/06/24 10/02/24 Rx
tablet
sacubitril 24 mg-valsartan 26 mg 1 tab PO BID #60 tabs 08/14/24 10/06/24 10/02/24 Rx
tablet (Entresto)
apixaban 5 mg (74 tabs) tablets in See Rx Instructions .Route 10/06/24 10/06/24 10/02/24 History
a dose pack (Eliquis DVT-PE Treat .COMPLEX Blood Clot Prevention/Tx
30D Start)
Review of Systems
-
Unable to Obtain full review of systems at this time due to: Patient Intubation
Vitals / Labs / Diagnostic Testing
Vital Signs
Temp Pulse Resp BP Pulse Ox
94.8 F L 68 12 102/65 94
10/06/24 12:58 10/06/24 13:04 10/06/24 13:04 10/06/24 13:04 10/06/24 13:04
Lab Data
10/06/24 11:37
Laboratory Results
10/06/24
11:37
PT 16.2 H
INR 1.27
APTT 30.5
pH 7.32 L
pCO2 43
pO2 167 H
HCO3 22.2
O2 Delivery Level
Diagnostic Testing:
Physical Exam
-
HEENT: Normocephalic, Anicteric and Other (ETT in place)
Cardiovascular: S1/S2 and Peripheral Edema (+1 lower extremity pitting edema bilaterally)
Respiratory: Wheeze (negative), Rales (negative), Rhonchi (negative), Non-Labored Respirations, Other (Mechanical breath sounds heard bilaterally) and Other (Left pleural/mediastinal chest tube x 1)
GI: Soft, Distended (Abdominal obesity), Non Tender and Normal Bowel Sounds
Neurology: Tremors (negative) and Other (Sedated)
Skin: Warm and Dry
General: Respiratory Distress (negative), Comfortable, Fever (negative), Chills (negative) and Sweats (negative)
Assessment
-
Assessment: 68-year-old male with a past medical history of CAD, right sided empyema requiring IV antibiotics + chest tube s/p tPA/dornase (July 2024), hypertension, hyperlipidemia, DM type II, history of colon cancer s/p resection, gout, history
of COPD, anemia and history of DVT who presents for elective coronary artery bypass. Patient known to the cardiothoracic surgery service with last visit on 09/15/[address] Gallegos. Patient was transferred from [facility] to [facility] on 08/07/2024 for a right-sided empyema with triple-vessel CAD seen on left heart catheterization. He was sent for evaluation for CABG. During that hospitalization, CT surgery recommended time to allow patient to recover from his empyema
with eventual surgical revascularization. The risks and benefits of surgical revascularization were discussed in the office and patient agreed to a surgical intervention. Today, patient underwent a MIDCAB and postoperatively was transferred to the
CVICU for further care. Equipment Operator [employer] services consulted for additional management/recommendations.
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
DVT, shingles, reported Hx of COPD, history of transaminitis
Impression:
#Multivessel CAD s/p minimally invasive direct coronary artery bypass (POD#0)
#Acute anemia due to above
#Acute thrombocytopenia (mild) due to above
#DM type II c/b hyperglycemia (mild)
#Hypocalcemia
#Right-sided pneumonia (RML + RLL) complicated by empyema with outside hospital culture positive for Staphylococcus epidermidis s/p IV antibiotics + chest tube s/p tPA/dornase
#History of gout
#Chronic lymphedema
#Diabetic foot ulcer
#Obesity (BMI: 31.8)
#Hypertension/hyperlipidemia
#Reported history of COPD (no spirometry/PFTs on file)
Plan:
Ventilator settings reviewed
FiO2 will be weaned to maintain SpO2 >90-94%
Minute ventilation will be adjusted
Arterial blood gases will be monitored
Spontaneous breathing trial will be attempted with hopeful extubation after anesthesia/sedation wear off
prn nebulized bronchodilators - not currently bronchospastic
Pulmonary artery catheter parameters will be followed
Pressors/antihypertensive/inotropes/diuretics will be provided as needed
Intraoperative ANTHONY today showed LVEF preserved at 55% with no regional WMA. There was a mildly dilated LA with mild scattered sessile atheroma seen in the descending aorta
Maintain MAP>65
Replete electrolytes with K>4, Mg>2
Monitor chest tube output (left pleural/mediastinal chest tube x1)
Monitor hemoglobin
Monitor platelet count and coags
Transfuse blood products as needed to maintain Hb>7g/dL, plt>50k (given post-operative status)
CT surgery managing chest tubes
Monitor blood sugar to maintain euglycemia with goal BG 110-140
Insulin drip per protocol
Aspiration precautions
VAP prevention protocol
DVT prophylaxis
Early nutrition
Early mobilization
Patient will continue to follow-up with us in the [facility] office with Dr. Branham - next visit in February 2025.
Critical care statement: A total of 41 minutes of critical care time was provided for this patient today. This includes management of ventilator, spontaneous breathing trial, arterial blood gases, pressors, of unstable vital signs, evaluation of the
patient at bedside, reviewing the patient's pertinent medical records including radiographs, microbiology, laboratory evaluations, and discussion with primary team and critical care nursing.
[2024-10-06 11:43] LABS: Glucose - Point of Care 166 mg/dl (70-99)
[2024-10-06] MEDS: NSS 500 IV (11:54)
[2024-10-06] MEDS: CARDENE 200 IV ×2 (11:54→19:05)
[2024-10-06] MEDS: ANCEF 10 IV ×2 (11:55)
[2024-10-06 11:57] LABS: Hematocrit 29.3 % (39.0-52.0); Hemoglobin 10.1 g/dL (13.0-18.0); Platelet Count 129 10^3/uL (130-400)
[2024-10-06 11:59] LABS: B.E. -3.8 mmol/L; HCO3 22.2 mmol/L (21-28); Ionized Calcium 1.11 mMOL/L (1.15-1.33); O2 Saturation % 99.8 % (94-98); PCO2 43 mmHg (35-48); PO2 167 mmHg (83-108); Potassium 3.8 mMOL/L (3.5-5.1); Sodium 138 mMOL/L (136-145); pH 7.32 (7.35-7.45)
--- NOTE | 2024-10-06 12:06 | W.PN.UPDATE ---
Update Note
Progress Note Update
IV fluids: 2200 mL
Crystalloid:� 250 mL
U.O.:� 150 mL
Blood:� None
Wires:� None
Inotropes:� None�
Sedatives:� Precedex (0.5)
Gtts: Nicardipine (5), Insulin (1)
�
NEURO: sedated on Precedex gtt, pupils +2mm B/L
RESP: #8OT @29cm> 500/60%/14/5. Lungs clear B/L. L CT X 2 (pleural/MS) (45cc on arrival then 65 after stripping) chest tubes to -20cm suction. Sanguineous drainage. No airleak/crepitus.
CV: RRR +S1, S2, no S3, no�rub, no murmur. Dermabond to L chest wall. RIJ w/Cordis.
ABD: round, soft, no BS
EXT: + 2 pitting B/L ankle/pedal edema, +1/4 DP pulses B/L, PVD discoloration B/L, L radial A-line intact
: Barrios with clear yellow urine
�
A/P: POD #0 s/p NUNEZ-LAD and rib plating with Dr. Gallegos with plan for PCI to Circ (10/07/24)
ANTHONY: EF�55%
- NSTEMI (08/07/24) then discharged with follow-up as outpatient consultation
- Plan for PCI to Circ tomorrow 10/07/[address] Huerta
- NPO at midnight
- wean and extubate
- goal initial SBP of 90-110 mmHg
�
# unprovoked DVT
- incidental finding of B/L occlusive thrombus of GSV with extension to R CVF during Vein Mapping
- to ED following study - placed on Eliquis 5 mg BID, held prior to surgery
- Restart Eliquis when able post-operatively
# acute surgical blood loss anemia-expected
- Pre-op Hgb 12.2 -> 10.1 postoperative
- Con't to trend CBC
�
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
- insulin infusion x 48h
- eventual transition to glipizide, farxiga
�
# Hyperlipidemia
- resume�Atorvastatin when tolerating PO
[2024-10-06 12:07] LABS: INR 1.27; PT 16.2 Sec (11.4-14.6)
[2024-10-06 12:08] LABS: APTT 30.5 Sec (23.4-35.0)
[2024-10-06] MEDS: NEURONTIN PO ×2 (12:12→17:04)
--- NOTE | 2024-10-06 12:14 | PTCARENOTE ---
Received pt from the cvor into 2263, sinus rhythm on tele, + peripheral pulses, +2 edema and PVD discoloration to bilateral lower extremitieS. Ledt radial meet leveled and zeroed, BP 110/59 at present, CVP 13. Lungs diminished, ETT #8/ 24cm at
right lip, vent settings: SIMV 40%/500/14/+5 PEEP, POX 96%. Hypoactive BS noted. Barrios catheter draining yellow. LP CT x2 w red drainage.
DRIPS:
Cardene 2.5 mg/hr
Insulin titrated per glycemic protocol
Precedex 0.5 mcg/kg/hr
[2024-10-06 12:27] LABS: Blood Urea Nitrogen 21 mg/dl (9-20); Estimated Creatinine Clearance 107 ml/min; Glucose 152 mg/dl (70-99)
[2024-10-06] MEDS: CALCIUM GLUCONATE 100 IV (12:38)
[2024-10-06 12:47] LABS: Glucose - Point of Care 191 mg/dl (70-99)
[2024-10-06] MEDS: KCL 50 IV ×2 (13:10→14:07)
[2024-10-06 13:49] LABS: Glucose - Point of Care 153 mg/dl (70-99)
[2024-10-06] MEDS: TYLENOL PO (13:53)
--- NOTE | 2024-10-06 14:05 | PTCARENOTE ---
Pt's at bedside, updated. Precedex weaned off.
[2024-10-06 15:06] LABS: Glucose - Point of Care 153 mg/dl (70-99)
[2024-10-06] MEDS: ZOFRAN 4 MG IV (15:36)
[2024-10-06 15:41] LABS: B.E. - POC -1.3 mmol/L; Blood Urea Nitrogen - POC 20 mg/dl (3-120); Chloride - POC 118 mmol/L (96-111); Creatinine - POC 0.82 mg/dl (0.3-1.0); Glucose - POC 133 mg/dl (70-99); HCO3 - POC 24 mmol/L (21-28); Hematocrit - POC 49 % PCV (42-52); Hemodilution- POC No; Hemoglobin Calculated - POC 16.7; Ionized Calcium - POC 1.22 mmol/L (1.15-1.33); Lactate - POC 1.66 mmol/L (0.36-0.75); O2 Saturation %Calculated-POC 95.1 % (94-98); PCO2 - POC 42 mmHg (35-48); PO2 - POC 79 mmHg (83-108); Potassium - POC 4.2 mmol/L (3.5-5.1); Sodium - POC 141 mmol/L (136-145); Specimen Type - POC Arterial; pH - POC 7.37 (7.35-7.45)
[2024-10-06 15:44] LABS: Hematocrit 31.8 % (39.0-52.0); Hemoglobin 11.1 g/dL (13.0-18.0); Platelet Count 134 10^3/uL (130-400)
--- NOTE | 2024-10-06 15:48 | PTCARENOTE ---
pt weaned on CPAP x30 min, ABG result reviewed w CT PA, pt extubated to 6L NC at 15:45, pox 98% on 6L NC.
[2024-10-06 16:10] LABS: Glucose - Point of Care 136 mg/dl (70-99)
[2024-10-06] MEDS: PACERONE PO (17:04)
[2024-10-06] MEDS: LOW STRENGTH ASPIRIN 81 MG PO (17:50)
[2024-10-06] MEDS: ANCEF 5 IV (17:50)
[2024-10-06] MEDS: ROXICODONE 5 MG PO (17:58)
[2024-10-06] MEDS: DILAUDID 0.5 MG IV ×2 (17:58→21:03)
[2024-10-06 18:03] LABS: Glucose - Point of Care 116 mg/dl (70-99)
[2024-10-06] MEDS: DILAUDID 0.25 MG IV (19:27)
[2024-10-06 20:07] LABS: Glucose - Point of Care 113 mg/dl (70-99)
--- NOTE | 2024-10-06 20:45 | PTCARENOTE ---
received pt from previous rn. pt AAOx4, c/o incision pain. See MAR. NSR per tele monitor HR 70s, +pulses, +2 LE edema, lungs diminished throughout pos 98% on 4L NC, CTx2 to -20 cm wall suction draining red blood, no air leak/tidaling/ crepitus, +bs,
hartman draining clear yellow urine. all surgical sites intact. RIJ cordis w/ SLIC infusing KVO, insulin infusing per glycemic protocol through PIV. plan of care discussed, questions encouraged, call adams within reach.
[2024-10-06] MEDS: PLAVIX 75 MG PO (21:03)
[2024-10-06 21:04] LABS: Glucose - Point of Care 114 mg/dl (70-99)
[2024-10-06] MEDS: SENOKOT-S PO (21:04)
[2024-10-06] MEDS: NEURONTIN 100 MG PO (21:45)
[2024-10-06] MEDS: LIPITOR 80 MG PO (21:45)
[2024-10-06] MEDS: FLEXERIL 5 MG PO (21:45)
[2024-10-06] MEDS: PACERONE 200 MG PO (21:45)
[2024-10-06] MEDS: TYLENOL 1000 MG PO (21:45)
[2024-10-06 21:53] LABS: Glucose - Point of Care 114 mg/dl (70-99)
[2024-10-06 23:07] LABS: Glucose - Point of Care 92 mg/dl (70-99)
[2024-10-07] VITALS (26 sets, daily range): BP systolic 86–136; BP diastolic 55–78; PULSE 81; O2SAT 96–98; BMI 32.6
[2024-10-07 00:01] LABS: Glucose - Point of Care 114 mg/dl (70-99)
--- NOTE | 2024-10-07 00:23 | PTCARENOTE ---
Sandra systolic BPs higher than cuff systolic, per CTPA to go by cuff pressures, NSR per tele monitor, VSS, assessment remains unchanged
[2024-10-07] MEDS: CARDENE 200 IV (00:50)
[2024-10-07 01:12] LABS: Glucose - Point of Care 90 mg/dl (70-99)
[2024-10-07] MEDS: NOVOLIN R INSULIN INFUSION 100 IV (01:15)
[2024-10-07] MEDS: ANCEF 5 IV ×2 (02:18→10:13)
[2024-10-07 03:04] LABS: Glucose - Point of Care 131 mg/dl (70-99)
[2024-10-07 03:29] LABS: Hematocrit 32.4 % (39.0-52.0); Hemoglobin 11.1 g/dL (13.0-18.0); Mean Corp Hgb Conc. 34.3 g/dL (33.0-37.0); Mean Corpuscular Hgb 35.8 pg (27.0-31.0); Mean Corpuscular Volume 104.5 fL (80.0-94.0); Mean Platelet Volume 10.8 fL (7.4-10.4); Platelet Count 147 10^3/uL (130-400); Red Cell Dist. Width 14.7 % (11.5-14.5); White Blood Cell Count 21.6 10^3/uL (4.8-10.8)
[2024-10-07 03:51] LABS: Blood Urea Nitrogen 24 mg/dl (9-20); Calcium 8.8 mg/dl (8.4-10.2); Carbon Dioxide 21 mmol/L (22-30); Chloride 115 mmol/L (98-107); Estimated Creatinine Clearance 95 ml/min; Glucose 124 mg/dl (70-99); Potassium 4.5 mmol/L (3.5-5.1); Sodium 141 mmol/L (135-145); eGFR > 60.00
--- NOTE | 2024-10-07 04:29 | W.PN.CT ---
Today's Communication / Plan
-
Plan:
-No major issues overnight. Hemodynamically and neurologically intact
-On Cardene @ 5 mg/hr and insulin gtt per protocol
-Successfully extubated on 10/06/24 @ 1545
-No swan, 24hrs u/o 785 mL
-Monitor chest tube output: med + L pl 190/415
-No temporary PW
-Maintain a-line until after PCI
-Maintain hartman until after PCI
-Maintain cordis
-For PCI today 10/07/24
-Cont. current meds (ASA, Plavix, Lipitor, Lopressor)
-Wean O2 as tolerated
-Encourage use of IS
-OOB into chair
Assessment / Plan
-
Assessment:
-S/P Robotic assisted MIDCAB (single-vessel bypass NUNEZ in situ to LAD)/Robotic assisted harvest of internal mammary artery with anterolateral mini thoracotomy for CABG/Shingling of the rib for exposure, status post reconstruction with surgical
plates, by Dr. Gallegos, 10/06/24, pod#1
-Triple Vessel Coronary artery disease involving the proximal LAD
-History of NSTEMI @ [facility] (peak trop 3.995), 08/07/24
-LVEF 55% per intraop ANTHONY
-No Conduit @ LE
-Chronic Lymphedema with LE ulcers/venostasis
-Bilateral DVTs on anticoagulation
-Pneumonia status post empyema requiring tPA and dornase to the right lower lobe, 08/08/24
-COPD
-Hyperlipidemia
-Hypertension
-Type 2 diabetes mellitus (hgb A1C 5.8)
-Class 1 obesity (BMI 31.8)
-Peripheral vascular disease
-Gout
-Shingles
-Anemia
-Hx colon ca S/P sigmoid resection, 2000
-Acute postop blood loss/on chronic anemia (stable without blood transfusion)
-Acute postop thrombocytopenia
-Acute postop atelectasis
-Acute postop hypovolemia with subsequent hypervolemia
Discussed patient care with: Cardiology, Nursing, Respiratory Therapy, Pharmacy and Care Team
Subjective
Procedure
-S/P Robotic assisted MIDCAB (single-vessel bypass NUNEZ in situ to LAD)/Robotic assisted harvest of internal mammary artery with anterolateral mini thoracotomy for CABG/Shingling of the rib for exposure, status post reconstruction with surgical
plates, by Dr. Gallegos, 10/06/24
-
Date of Service: October 07, 2024
Pt c/o incisional pain, otherwise feels well
Objective Data
-
Lab Results
10/07/24 03:03
10/07/24 03:03
PT 16.2 Sec (11.4-14.6) H 10/06/24 11:37
INR 1.27 10/06/24 11:37
APTT 30.5 Sec (23.4-35.0) 10/06/24 11:37
Vital Signs
Vital Signs
Temp Pulse Resp BP Pulse Ox
98.0 F 74 13 87/61 96
10/07/24 03:00 10/07/24 04:00 10/07/24 04:00 10/07/24 04:00 10/07/24 04:00
CT Intake/Output/Weight
10/06/24 10/06/24 10/07/24
06:59 18:59 06:59
Intake Total 442.0 / 955.9 513.9 / 955.9
Output Total 600 / 1105 505 / 1105
Balance -158.0 / -149.1 8.9 / -149.1
SaO2: 96 (2L)
Physical Exam
-
General: Awake, Oriented and AOx3
Cardiovascular: Regular rate & rhythm, No Murmurs, Rub and No Gallop
Respiratory: Decreased Breath Sounds (at bases, otherwise clear)
Sternum: Stable
Incision: Clean, Dry, Intact and Dressing Intact
Extremities: Other (+trace edema)
Data Reviewed
-
Lab Results: Results Reviewed
Medications: Active Meds Reviewed
Chest X-Ray: Report Reviewed and Image Reviewed
ECG: Report Reviewed and Image Reviewed
[2024-10-07] MEDS: DILAUDID 0.25 MG IV ×2 (04:34→20:14)
--- NOTE | 2024-10-07 04:39 | PTCARENOTE ---
routine labs obtained EKG obtained, VSS, NSR per tele monitor, assessment remains unchanged.
[2024-10-07 04:57] LABS: Glucose - Point of Care 105 mg/dl (70-99)
[2024-10-07] MEDS: TYLENOL 1000 MG PO ×2 (06:08→21:53)
[2024-10-07 06:57] LABS: Glucose - Point of Care 102 mg/dl (70-99)
[2024-10-07] MEDS: PACERONE 200 MG PO ×2 (07:51→17:47)
[2024-10-07] MEDS: LOW STRENGTH ASPIRIN 81 MG PO (07:51)
[2024-10-07] MEDS: NEURONTIN 100 MG PO ×3 (07:51→21:53)
[2024-10-07] MEDS: LOPRESSOR 12.5 MG PO (07:51)
[2024-10-07] MEDS: PLAVIX 600 MG PO (07:51)
[2024-10-07] MEDS: SENOKOT-S 1 TABLET PO ×2 (07:52→20:17)
[2024-10-07] MEDS: ROXICODONE 5 MG PO (07:52)
[2024-10-07] MEDS: LIDOCAINE 4% PATCH 1 PATCH TOPICAL (07:52)
[2024-10-07] MEDS: BACTROBAN 2% OINTMENT 1 APPLIC NASAL ×2 (07:52→20:19)
[2024-10-07] MEDS: PROTONIX 40 MG PO (07:52)
[2024-10-07] MEDS: MAGNESIUM OXIDE 500 MG PO ×2 (07:52→20:17)
--- NOTE | 2024-10-07 07:56 | W.PN.ANS.POP ---
Anesthesia Post Operative
- Anesthesia Post Op Note
Vital Signs Stable-See Nursing Note: Yes
Airway Patent: Yes
Adequate Pain Control: Yes
Change in Mental Status: No
Current Postoperative Nausea & Vomiting: No
Anesthesia Complications: No
General Anesthetic Recall: No
Unplanned Admission: No
Post Op Hydration Adequate: Yes
--- NOTE | 2024-10-07 08:00 | PTCARENOTE ---
Assumed care of patient from hourly shift manager RN. AAO x 3. SR on monitor. Lt radial A line transducing. Line leveled, recalibrated, and flushed. RT IJ with slick. 2 L NC, 98%. Chest tubes x 2 to - 20 cm suction. No air leak or crepitus noted.
Abdomen obese, denies nausea. Barrios draining clear yellow urine. Plus 3 lower extremity edema appreciated. Pulses palpable. Plan for day discussed. Insulin infusing per glycemic protocol.
--- NOTE | 2024-10-07 08:17 | W.PN.INTV ---
Today's Communication / Plan
Recommendations
Going for PCI today
Encouraged incentive spirometer
Up OOB as tolerated
Pain control
Goal BG 110�140
Assessment
-
Assessment: 68-year-old male with a past medical history of CAD, right sided empyema requiring IV antibiotics + chest tube s/p tPA/dornase (July 2024), hypertension, hyperlipidemia, DM type II, history of colon cancer s/p resection, gout, history
of COPD, anemia and history of DVT who presents for elective coronary artery bypass. Patient known to the cardiothoracic surgery service with last visit on 09/15/[address] Gallegos. Patient was transferred from [facility] to [place] on 08/07/2024 for a right-sided empyema with triple-vessel CAD seen on left heart catheterization. He was sent for evaluation for CABG. During that hospitalization, CT surgery recommended time to allow patient to recover from his empyema
with eventual surgical revascularization. The risks and benefits of surgical revascularization were discussed in the office and patient agreed to a surgical intervention. Today, patient underwent a MIDCAB and postoperatively was transferred to the
CVICU for further care. Golf Technician services consulted for additional management/recommendations.
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
DVT, shingles, reported Hx of COPD, history of transaminitis
Impression:
#Multivessel CAD s/p minimally invasive direct coronary artery bypass (POD#1)
#Acute anemia due to above
#Acute thrombocytopenia (mild) due to above
#DM type II c/b hyperglycemia (mild)
#Hypocalcemia
#Right-sided pneumonia (RML + RLL) complicated by empyema with outside hospital culture positive for Staphylococcus epidermidis s/p IV antibiotics + chest tube s/p tPA/dornase
#History of gout
#Chronic lymphedema
#Diabetic foot ulcer
#Obesity (BMI: 31.8)
#Hypertension/hyperlipidemia
#Reported history of COPD (no spirometry/PFTs on file)
Plan:
Patient was successfully extubated in the late afternoon on 10/06/2024, and is currently breathing comfortably on 2 L/min nasal cannula saturating 98%
Continue to wean down supplemental O2 flow rate while maintaining SpO2 >90-94%
prn nebulized bronchodilators - not currently bronchospastic
Encourage incentive spirometer q1hr while awake
Pulmonary artery catheter parameters will be followed
Pressors/antihypertensive/inotropes/diuretics will be provided as needed
Intraoperative ANTHONY today showed LVEF preserved at 55% with no regional WMA. There was a mildly dilated LA with mild scattered sessile atheroma seen in the descending aorta
Maintain MAP>65
Replete electrolytes with K>4, Mg>2
Patient going to [facility] today for PCI
Monitor chest tube output (left pleural/mediastinal chest tube x1)
Monitor hemoglobin
Monitor platelet count and coags
Transfuse blood products as needed to maintain Hb>7g/dL, plt>50k (given post-operative status)
CT surgery managing chest tubes
Monitor blood sugar to maintain euglycemia with goal BG 110-140
Recommend ISS to maintain BG goal as above
Aspiration precautions
DVT prophylaxis
Early nutrition
Early mobilization
Patient will continue to follow-up with us in the [facility] office with Dr. Branham - next visit in February 2025.
Golf Technician services will continue to follow along while patient remains in the CVICU. Once downgraded to CVICU�telemetry status then we will sign off at that time.
Total time spent today was 78 minutes for this encounter. Time includes reviewing laboratory test/imaging results, reviewing pertinent medical records, obtaining and reviewing medical history, performing an appropriate exam, ordering medications,
tests and procedures. Time also includes documentation of this encounter, coordinating patient care and communicating with other healthcare professionals. Total time does not include separately billed tests performed on this date of service.
Subjective Dataa
Subjective Data
Date of Service:
Date of Service: October 07, 2024
Chief Complaint: Golf Technician Follow Up
Subjective:
Patient was seen this morning. Going for PCI today. Current heart rate 80, BP via A-line 135/63 and breathing comfortably on 2 L/min nasal cannula saturating 98%. Still has shortness of breath that he says is from chest pain. Left-sided
pleural/mediastinal chest tube x [address] and R�IJ cordis also in place. He currently denies HOLT, nausea, vomiting, fevers or chills.
Review of Systems
General: Other (Negative unless mentioned above)
Objective Data
Data Reviewed
Vital Signs / I&O / Oxygen:
Vital Signs
Temp Pulse Resp BP Pulse Ox
98.0 F 83 18 115/68 98
10/07/24 15:09 10/07/24 15:05 10/07/24 15:09 10/07/24 14:00 10/07/24 15:09
Intake and Output
10/06/24 10/07/24 10/08/24
06:59 06:59 06:59
Intake Total 1014.4 / 1014.4 362.2 / 362.2
Output Total 1230 / 1230 760 / 760
Balance -215.6 / -215.6 -397.8 / -397.8
SaO2 [SIMV] 97
SaO2 98
Nasal Cannula flow liters per 2
minute
Physical Exam
General: Respiratory Distress (negative), Comfortable, Chills (negative) and Sweats (negative)
HEENT: Normocephalic and Anicteric
Cardiovascular: S1-S2 and Peripheral Edema (+1 lower extremity edema bilateral)
Respiratory: Wheeze (negative), Rhonchi (negative), Non-Labored Respirations and Other (Coarse breath sounds heard bilaterally)
GI: Soft, Distended (Abdominal obesity), Non Tender and Normal Bowel Sounds
Neurology: AO x 3 and Tremors (negative)
Skin: Warm, Dry, Cyanosis (negative) and Jaundice (negative)
Labs/Micro/Reports
Lab Data
10/07/24 03:03
10/07/24 03:03
Microbiology
10/06/24 11:46 Nose MRSA Screen - Final
No Methicillin Resistant Staphylococcus aureus isolated.
[2024-10-07] MEDS: ZYLOPRIM 300 MG PO (08:32)
[2024-10-07 09:19] LABS: Glucose - Point of Care 97 mg/dl (70-99)
[2024-10-07] MEDS: NSS IV (10:01)
[2024-10-07 11:11] LABS: Glucose - Point of Care 100 mg/dl (70-99)
--- NOTE | 2024-10-07 11:44 | PTCARENOTE ---
Resting in chair. Denies complaint at present. VSS. Insulin drip discontinued per order. Assessment otherwise unchanged from prior.
[2024-10-07] MEDS: TYLENOL PO (15:08)
--- NOTE | 2024-10-07 15:12 | PTCARENOTE ---
Report given to engineer/conductor RN. Transported in bed. VSS. Assessment otherwise unchanged from prior.
[2024-10-07 15:53] LABS: Glucose - Point of Care 128 mg/dl (70-99)
[2024-10-07 16:17] LABS: ACT-LR - POC 237 Seconds (116-155)
[2024-10-07] MEDS: DILAUDID 0.5 MG IV ×2 (17:45→21:53)
[2024-10-07] MEDS: FERRLECIT 110 MG IV (17:46)
[2024-10-07] MEDS: GLUCOTROL 10 MG PO (17:47)
--- NOTE | 2024-10-07 18:25 | PTCARENOTE ---
Received pt back from cardiac chemical laboratory scientist. Lt radial TR band c,d.i. Pulse palpable. Pulse ox 96% on 4 L. C/o pain in chest. Given dilauded with good relief.
[2024-10-07] MEDS: NSS 1000 IV (18:36)
--- NOTE | 2024-10-07 19:22 | ITS.CL.PN ---
Operator Catalyst Concentration - Procedure Note
Procedure
Procedure Note:
CARDIAC CATHETERIZATION REPORT
Date of Procedure: 10/07/2024
Referring: Dr. Umesh Gallegos MD
Indication: complete revascularization after robotic NUNEZ to LAD
PROCEDURE(S)
1. left heart catheterization
2. coronary angiography
3. bypass graft angiography
4. IVUS LCx
5. PCI with TIMOTHY to LCx
ACCESS: 6F left radial artery (closure: radial band)
CATHETERS
1. 6F JANELLE
2. 6F pigtail
3. 6F EBU3.75 guide
MODERATE SEDATION: 60 minutes of moderate sedation was utilized. An independent medical sales specialist was present to assist with and help manage the patient's level of consciousness and physiologic status.
HEMODYNAMIC DATA
LV 121/11 (EDP 20) mmHg
AO 123/85 (mean 103) mmHg
CORONARY ANGIOGRAPHY
Dominance: right
NUNEZ-LAD: widely patent forming a patent anastomosis with the mid-LAD
LM: large, normal
LAD: large vessel giving rise to a large first diagonal, moderate caliber second diagonal, with the mid-distal vessel filled via the NUNEZ and in turn supplying L-R collaterals to the RCA
LCx: large vessel giving rise to a large OM1, moderate caliber OM2, and LPL system with the distal vessel supplying collaterals to the RCA. There is an 80% stenosis in the proximal LCx between OM1 and OM2.
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
PCI with TIMOTHY to LCx
Heparin was given to achieve ACT greater than 300. With the support of a felicia wire in the LAD, a Runthrough wire was placed in the distal circumflex. Initial lesion preparation was performed with a 2.0 mm semicompliant balloon and 3.0 mm
semicompliant balloon with full expansion. IVUS was performed demonstrating noncalcified plaque extending into an aneurysmal post stenotic segment. The aneurysmal segment had healthy reference vessel diameter of 4.5 to 5.0 mm. The proximal reference
vessel diameter was 3.5 mm. Stenting was performed with a 3.5 x 18 mm Ari Orrington drug-eluting stent with care taken to place the distal edge in the aneurysmal segment in a region with minimal plaque. Post dilation of the aneurysmal segment was
performed with a 4.0 x 6 mm NC balloon. IVUS was then performed and demonstrated ma-apposition at the distal stent edge which was a 5.0 mm vessel at the stent edge. Thus, with the aid of a 6F Guideliner, a 5.0 x 8 mm NC balloon was inflated at the
distal stent edge but only to 6 sesar to avoid excessive post dilatation of the nonaneurysmal portion of the stent which could risk rupture. The remainder the stent was postdilated to high-pressure with a 3.5 mm NC balloon. Final IVUS demonstrated
improved apposition at the distal stent edge with now a small arc of mild mal-apposition. It was decided that achieving full apposition here could cause excessive post-dilation of the non-aneurysmal stented segment, potentially leading to
perforation in the nonaneurysmal segment of the vessel. The remainder the stent was fully expanded and apposed and there were no stent edge dissections. Final angiographic result was excellent. The wire and guide were removed and a TR band placed.
The patient had previously been loaded with 600 mg of Plavix.
RADIATION: dose 2353 mGy; DAP 173 Gy*cm2; fluoroscopy time 25.5 min
CONCLUSIONS
1. Coronary angiography and bypass angiography as described with widely patent NUNEZ to LAD and high-grade stenosis in the proximal circumflex.
2. Mildly elevated LV filling pressure and no aortic stenosis.
3. Successful IVUS guided PCI of the proximal circumflex with a 3.5 x 18 mm Ari Orrington drug-eluting stent postdilated in the distal aneurysmal segment with a 5.0 mm NC balloon and throughout with a 3.5 mm NC balloon to high-pressure
RECOMMENDATIONS
1. DAPT with aspirin and Plavix for at least 6 months
2. Secondary prevention of coronary artery disease
Copy to: Dr. Randall Antunez MD (outpatient principal developer); Dr. Kin Sin MD (referring principal developer); Gibran Fuller DO (PCP)
Signed: Akash Huerta MD, PhD
[2024-10-07] MEDS: CORDARONE 103 MG IV (19:26)
--- NOTE | 2024-10-07 19:43 | W.PN.CD ---
Today's Communication / Plan
-
triple therapy 1 week then plavix/OAC for 6 months
Impression / Plan
-
68 year old man with recent admission for emypema c/b presumed type 2 NSTEMI, subsequently found to have 3v CAD but without venous condiuts, now s/p robotic NUNEZ-LAD (Rosy, 10/06) and staged PCI to the LCx (10/07, Deanna).
CAD s/p robotic NUNEZ-LAD, PCI to LCx, with RCA ACID BLOWER
- cont. routine post operative care
- cont. asa/plavix for at least 6 months
- high intensity statin for goal LDL<55
- metoprolol
- amio for post op afib prevention per CTS
Prior DVTs on AC
- restart OAC when safe from surgical standpoint
- recommend 1 week of triple therapy, followed by Plavix/OAC only without ASA after 1 week
Intra Op ANTHONY 10/06/2024
Overall LVEF is approximately 55% with no RWMA.
Mildly dilated left atrium.
Aortic sclerosis without stenosis.
MV, PV, and TV appear to be functioning normally.
Mild scattered sessile atheroma seen in the descending aorta.
PMHx
Chronic Lymphedema with LE ulcers/venostasis
Bilateral DVTs on anticoagulation
Pneumonia status post empyema requiring tPA and dornase to the right lower lobe, 08/08/24
COPD
Hyperlipidemia
Hypertension
Type 2 diabetes mellitus (hgb A1C 5.8)
Class 1 obesity (BMI 31.8)
Peripheral vascular disease
Hx colon ca S/P sigmoid resection, 2000
Physical Exam
Vital Signs/Labs
Vital Signs
Temp Pulse Resp BP Pulse Ox
36.7 C 110 14 115/68 95
10/07/24 15:09 10/07/24 18:35 10/07/24 18:35 10/07/24 14:00 10/07/24 18:30
10/06/24 10/07/24 10/08/24
06:59 06:59 06:59
Actual Weight 100.6 kg 103 kg
10/07/24 03:03
10/07/24 03:03
PT 16.2 Sec (11.4-14.6) H 10/06/24 11:37
INR 1.27 10/06/24 11:37
APTT 30.5 Sec (23.4-35.0) 10/06/24 11:37
Magnesium 2.0 mg/dl (1.6-2.3) 10/07/24 03:03
Physical Exam
Constitutional: No acute distress
Cardiovascular: Rhythm & rate is regular
Respiratory: Respiratory effort normal
Neuro/Psych: AO x 3
Data Reviewed
-
Date of Service: October 07, 2024
Medical Decision Making: Reviewed Test Results
EKG: Tracing Personally Visualized and interpreted
Echo: Tracing Personally Visualized and interpreted
X-Ray/CT/US/MRI/NUC/PET: Image Personally Visualized and interpreted
Medical Tests (PFT, Pathology etc): Image Personally Visualized and interpreted
Labs: Labs Reviewed by me
--- NOTE | 2024-10-07 20:00 | PTCARENOTE ---
received pt from previous rn. pt AAOx4, VSS, a-flutter per tele monitor HR 100s, TR band c/d/i. +pulses, +3 LE edema, lungs diminished throughout pox 98% on 4L NC, CTx2 to -20 cm wall suction draining serosanguineous blood, no air leak/tidaling/
crepitus, +bs, hartman draining clear yellow urine. all surgical sites intact. RIJ cordis infusing KVO, piv intact. plan of care discussed, questions encouraged, call adams within reach
[2024-10-07] MEDS: LOPRESSOR 2.5 MG IV (20:14)
[2024-10-07] MEDS: FLEXERIL 5 MG PO (20:17)
[2024-10-07] MEDS: LOPRESSOR PO (20:19)
[2024-10-07 21:49] LABS: Glucose - Point of Care 193 mg/dl (70-99)
[2024-10-07] MEDS: PACERONE 400 MG PO (21:53)
[2024-10-07] MEDS: LIPITOR 80 MG PO (21:53)
[2024-10-08] VITALS (15 sets, daily range): BP systolic 103–157; BP diastolic 65–93; PULSE 83; O2SAT 97–98; BMI 32.9
--- NOTE | 2024-10-08 00:25 | PTCARENOTE ---
pt resting comfortably in bed. NSR per tele monitor HR 80s. VSS, Assessment remains unchanged
[2024-10-08 04:04] LABS: Hematocrit 29.9 % (39.0-52.0); Mean Corp Hgb Conc. 33.4 g/dL (33.0-37.0); Mean Corpuscular Hgb 35.7 pg (27.0-31.0); Mean Corpuscular Volume 106.8 fL (80.0-94.0); Platelet Count 140 10^3/uL (130-400); White Blood Cell Count 14.6 10^3/uL (4.8-10.8)
[2024-10-08 04:28] LABS: Blood Urea Nitrogen 27 mg/dl (9-20); Calcium 8.7 mg/dl (8.4-10.2); Carbon Dioxide 24 mmol/L (22-30); Chloride 111 mmol/L (98-107); Estimated Creatinine Clearance 96 ml/min; Glucose 123 mg/dl (70-99); Magnesium 2.1 mg/dl (1.6-2.3); Potassium 4.6 mmol/L (3.5-5.1); Sodium 141 mmol/L (135-145); eGFR > 60.00
--- NOTE | 2024-10-08 04:35 | W.PN.CT ---
Today's Communication / Plan
-
Plan:
-No major issues overnight. Hemodynamically and neurologically intact
-Off all drips
-Had brief SVT yesterday, responded to Amiodarone bolus x 1 and 2.5 mg IV lopressor
-Underwent PCI with TIMOTHY to Lcx yesterday 10/07/24
-Monitor chest tube for possible d/c: med + L pl 215/365
-No temporary PW
-Maintain cordis another day
-Cont. current meds (ASA, Plavix, Lipitor, Coreg)
-Wean O2 as tolerated
-Encourage use of IS
-OOB into chair/Ambulate
-Home in 1-2 days
Assessment / Plan
-
Assessment:
-S/P Robotic assisted MIDCAB (single-vessel bypass NUNEZ in situ to LAD)/Robotic assisted harvest of internal mammary artery with anterolateral mini thoracotomy for CABG/Shingling of the rib for exposure, status post reconstruction with surgical
plates, by Dr. Gallegos, 10/06/24, pod#2
-S/p PCI with TIMOTHY to left circumflex, 10/07/24, by Dr. Huerta
-Triple Vessel Coronary artery disease involving the proximal LAD
-History of NSTEMI @ [facility] (peak trop 3.995), 08/07/24
-LVEF 55% per intraop ANTHONY
-No Conduit @ LE
-Chronic Lymphedema with LE ulcers/venostasis
-Bilateral DVTs on anticoagulation
-Pneumonia status post empyema requiring tPA and dornase to the right lower lobe, 08/08/24
-COPD
-Hyperlipidemia
-Hypertension
-Type 2 diabetes mellitus (hgb A1C 5.8)
-Class 1 obesity (BMI 31.8)
-Peripheral vascular disease
-Gout
-Shingles
-Anemia
-Hx colon ca S/P sigmoid resection, 2000
-Acute postop blood loss/on chronic anemia (stable without blood transfusion)
-Acute postop thrombocytopenia
-Acute postop atelectasis
-Acute postop hypovolemia with subsequent hypervolemia
-Acute postop SVT
Discussed patient care with: Cardiology, Nursing, Respiratory Therapy, Pharmacy and Care Team
Subjective
Procedure
-S/P Robotic assisted MIDCAB (single-vessel bypass NUNEZ in situ to LAD)/Robotic assisted harvest of internal mammary artery with anterolateral mini thoracotomy for CABG/Shingling of the rib for exposure, status post reconstruction with surgical
plates, by Dr. Gallegos, 10/06/24
-
Date of Service: October 08, 2024
Pt c/o mild incisional pain, otherwise feels well
Objective Data
-
Lab Results
10/08/24 03:49
10/08/24 03:49
PT 16.2 Sec (11.4-14.6) H 10/06/24 11:37
INR 1.27 10/06/24 11:37
APTT 30.5 Sec (23.4-35.0) 10/06/24 11:37
Vital Signs
Vital Signs
Temp Pulse Resp BP Pulse Ox
97.8 F 69 13 103/69 99
10/08/24 04:00 10/08/24 04:05 10/08/24 04:05 10/08/24 04:00 10/08/24 04:05
CT Intake/Output/Weight
10/07/24 10/07/24 10/08/24
06:59 18:59 06:59
Intake Total 572.4 / 1014.4 362.2 / 562.2 200 / 562.2
Output Total 630 / 1230 1060 / 1840 780 / 1840
Balance -57.6 / -215.6 -697.8 / -1277.8 -580 / -1277.8
SaO2: 99 (2L)
Physical Exam
-
General: Awake, Oriented and AOx3
Cardiovascular: Regular rate & rhythm, No Murmurs, Rub (mild rub) and No Gallop
Respiratory: Decreased Breath Sounds (at bases, otherwise clear)
Sternum: Stable
Incision: Clean, Dry, Intact and Dressing Intact
Extremities: Other (+trace edema)
Data Reviewed
-
Lab Results: Results Reviewed
Medications: Active Meds Reviewed
Chest X-Ray: Report Reviewed and Image Reviewed
ECG: Report Reviewed and Image Reviewed
[2024-10-08] MEDS: TYLENOL 1000 MG PO ×3 (06:29→22:13)
--- NOTE | 2024-10-08 07:12 | PTCARENOTE ---
devan villanueva/lyle'rich, pt DTV @ [phone]
[2024-10-08 08:09] LABS: ACT-LR - POC > 397 Seconds (116-155)
--- NOTE | 2024-10-08 08:20 | W.PN.INTV ---
Today's Communication / Plan
Recommendations
s/p PCI and TIMOTHY to pLCx yesterday
Continue DAPT
Continue PO amio per cardiology and CT surgery team
Encouraged incentive spirometer
Up OOB as tolerated
Pain control
Goal BG 110�140
Patient will continue to follow-up with us in the [facility] office with Dr. Branham - next visit in February 2025.
Patient is now downgraded to CVICU�telemetry status. No additional recommendations at this time. Outreach Professional/Pulmonary service will now sign off. Please reconsult if there are any additional questions/concerns, or if patient's respiratory status
deteriorates.
Assessment
-
Assessment: 68-year-old male with a past medical history of CAD, right sided empyema requiring IV antibiotics + chest tube s/p tPA/dornase (July 2024), hypertension, hyperlipidemia, DM type II, history of colon cancer s/p resection, gout, history
of COPD, anemia and history of DVT who presents for elective coronary artery bypass. Patient known to the cardiothoracic surgery service with last visit on 09/15/[address] Gallegos. Patient was transferred from [facility] to [facility] on 08/07/2024 for a right-sided empyema with triple-vessel CAD seen on left heart catheterization. He was sent for evaluation for CABG. During that hospitalization, CT surgery recommended time to allow patient to recover from his empyema
with eventual surgical revascularization. The risks and benefits of surgical revascularization were discussed in the office and patient agreed to a surgical intervention. Today, patient underwent a MIDCAB and postoperatively was transferred to the
CVICU for further care. Outreach Professional services consulted for additional management/recommendations.
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
DVT, shingles, reported Hx of COPD, history of transaminitis
Impression:
#Multivessel CAD s/p minimally invasive direct coronary artery bypass (POD#2)
#CAD with high-grade stenosis in the proximal LCx s/p IVUS guided PCI with TIMOTHY placement ([facility]: 10/07/2024)
#Acute anemia
#Acute thrombocytopenia (mild)
#DM type II c/b hyperglycemia (mild)
#Hypocalcemia - resolved
#Hx of right-sided pneumonia (RML + RLL) complicated by empyema with outside hospital culture positive for Staphylococcus epidermidis s/p IV antibiotics + chest tube s/p tPA/dornase
#History of gout
#Chronic lymphedema
#Diabetic foot ulcer
#Obesity (BMI: 31.8)
#Hypertension/hyperlipidemia
#Reported history of COPD (no spirometry/PFTs on file)
Plan:
Patient was successfully extubated in the late afternoon on 10/06/2024, and is currently breathing comfortably on room air and saturating 96-97%
Maintain SpO2 >90-94%
prn nebulized bronchodilators - not currently bronchospastic
Encourage incentive spirometer q1hr while awake
Removal of R�IJ cordis per CT surgery team
Intraoperative ANTHONY from 10/06/2024 showed LVEF preserved at 55% with no regional WMA. There was a mildly dilated LA with mild scattered sessile atheroma seen in the descending aorta
Maintain MAP>65
Replete electrolytes with K>4, Mg>2
Patient went to Plans Examiner yesterday and underwent IVUS guided PCI of the proximal circumflex with TIMOTHY placed - -> continue with DAPT with aspirin + Plavix
Continue with PO amiodarone per cardiology + CT Surgery teams
Monitor chest tube output (left pleural/mediastinal chest tube x1)
Monitor hemoglobin
Monitor platelet count and coags
Transfuse blood products as needed to maintain Hb>7g/dL, plt>50k (given post-operative status)
CT surgery managing chest tubes
Monitor blood sugar to maintain euglycemia with goal BG 110-140
Recommend ISS to maintain BG goal as above
Aspiration precautions
DVT prophylaxis
Early nutrition
Early mobilization
Patient will continue to follow-up with us in the [facility] office with Dr. Branham - next visit in February 2025.
Patient is now downgraded to CVICU�telemetry status. No additional recommendations at this time. Outreach Professional/Pulmonary service will now sign off. Thank you for allowing us to be involved in the care of this patient. Please reconsult if there are
any additional questions/concerns, or if patient's respiratory status deteriorates.
Total time spent today was 38 minutes for this encounter. Time includes reviewing laboratory test/imaging results, reviewing pertinent medical records, obtaining and reviewing medical history, performing an appropriate exam, ordering medications,
tests and procedures. Time also includes documentation of this encounter, coordinating patient care and communicating with other healthcare professionals. Total time does not include separately billed tests performed on this date of service.
Subjective Dataa
Subjective Data
Date of Service:
Date of Service: October 08, 2024
Chief Complaint: Outreach Professional Follow Up
Subjective:
Patient seen today at bedside. Feels well, sitting in chair no acute distress. Heart rate 85, BP 122/81 and saturating 96% on room air. Has pain at his chest tube site but otherwise he feels well. Denies HOLT, nausea, fevers or chills.
Review of Systems
General: Other (Negative unless mentioned above)
Objective Data
Data Reviewed
Vital Signs / I&O / Oxygen:
Vital Signs
Temp Pulse Resp BP Pulse Ox
97.8 F 79 18 120/75 97
10/08/24 08:19 10/08/24 09:08 10/08/24 08:20 10/08/24 09:08 10/08/24 08:19
Intake and Output
10/07/24 10/08/24 10/09/24
06:59 06:59 06:59
Intake Total 1014.4 / 1014.4 582.2 / 592.2 500 / 500
Output Total 1230 / 1230 1890 / 1920 50 / 50
Balance -215.6 / -215.6 -1307.8 / -1327.8 450 / 450
SaO2 [SIMV] 97
SaO2 97
Nasal Cannula flow liters per 2
minute
Physical Exam
General: Respiratory Distress (negative), Comfortable, Chills (negative) and Sweats (negative)
HEENT: Normocephalic and Anicteric
Cardiovascular: S1-S2 and Peripheral Edema (+1 lower extremity edema bilateral)
Respiratory: Clear, Wheeze (negative), Crackles (negative), Rhonchi (negative), Non-Labored Respirations and Chest Tube (Left-sided pleural/mediastinal chest tube x 1)
GI: Soft, Distended (Abdominal obesity), Non Tender and Normal Bowel Sounds
Neurology: AO x 3 and Tremors (negative)
Skin: Warm, Dry, Cyanosis (negative), Jaundice (negative) and Other (Chronic venous stasis dermatitis changes in bilateral lower extremities)
Labs/Micro/Reports
Lab Data
10/08/24 03:49
10/08/24 03:49
Microbiology
10/06/24 11:46 Nose MRSA Screen - Final
No Methicillin Resistant Staphylococcus aureus isolated.
--- NOTE | 2024-10-08 09:00 | PTCARENOTE ---
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 NSR via cm, Sao2 @ 96% on RA. RIJ Cordis w/kvo infusing. L pleural chest tubes x 2, Y-connected to one pleurevac, to -20cm suction w/no air leak
noted. Sophie d/c'd 0620, DTV. All procedural sites stable. Patient updated to plan of care for the day, in agreement. See work list for full assessment and interventions performed.
[2024-10-08] MEDS: LASIX 40 MG IV (09:05)
[2024-10-08 09:06] LABS: Glucose - Point of Care 96 mg/dl (70-99)
[2024-10-08] MEDS: PLAVIX 75 MG PO (09:07)
[2024-10-08] MEDS: LOW STRENGTH ASPIRIN 81 MG PO (09:07)
[2024-10-08] MEDS: KCL 20 MEQ PO (09:07)
[2024-10-08] MEDS: SENOKOT-S 1 TABLET PO ×2 (09:08→20:28)
[2024-10-08] MEDS: PACERONE 200 MG PO ×3 (09:08→22:13)
[2024-10-08] MEDS: NEURONTIN 100 MG PO ×3 (09:08→22:13)
[2024-10-08] MEDS: PROTONIX 40 MG PO (09:08)
[2024-10-08] MEDS: MAGNESIUM OXIDE 500 MG PO ×2 (09:08→20:28)
[2024-10-08] MEDS: ZYLOPRIM 300 MG PO (09:08)
[2024-10-08] MEDS: GLUCOTROL 10 MG PO ×2 (09:08→16:25)
[2024-10-08] MEDS: COREG 6.25 MG PO ×2 (09:08→20:28)
[2024-10-08] MEDS: BACTROBAN 2% OINTMENT 1 APPLIC NASAL ×2 (09:09→20:27)
[2024-10-08] MEDS: LIDOCAINE 4% PATCH TOPICAL (09:10)
--- NOTE | 2024-10-08 09:26 | W.PN.CD ---
Today's Communication / Plan
-
- Continue routine postoperative care as directed by CT Surgery team.
- Triple therapy for 1 week, then plavix/NOAC for at least 6 months (ideally 1 year).
Impression / Plan
-
68 year old man with recent admission for emypema c/b presumed type 2 NSTEMI, subsequently found to have 3v CAD but without venous condiuts, now s/p robotic NUNEZ-LAD (Gallegos, 10/06) and staged PCI to the LCx (10/07, Deanna).
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
- Continue routine postoperative care as directed by CT Surgery team.
- Triple therapy for 1 week, then plavix/NOAC for at least 6 months (ideally 1 year).
- high intensity statin for goal LDL<55
- metoprolol
- amio for post op afib prevention per CTS
Prior DVTs on AC:
- restart OAC when safe from surgical standpoint
- Triple therapy for 1 week, then plavix/NOAC for at least 6 months (ideally 1 year).
- Continue high-dose atorvastatin.
PSVT/sinus tachycardia:
- On postoperative prophylactic amiodarone.
HTN:
- BP satble.
Intra Op ANTHONY 10/06/2024
Overall LVEF is approximately 55% with no RWMA.
Mildly dilated left atrium.
Aortic sclerosis without stenosis.
MV, PV, and TV appear to be functioning normally.
Mild scattered sessile atheroma seen in the descending aorta.
PMHx
Chronic Lymphedema with LE ulcers/venostasis
Bilateral DVTs on anticoagulation
Pneumonia status post empyema requiring tPA and dornase to the right lower lobe, 08/08/24
COPD
Hyperlipidemia
Hypertension
Type 2 diabetes mellitus (hgb A1C 5.8)
Class 1 obesity (BMI 31.8)
Peripheral vascular disease
Hx colon ca S/P sigmoid resection, 2000
Physical Exam
Vital Signs/Labs
Vital Signs
Temp Pulse Resp BP Pulse Ox
97.8 F 79 18 120/75 97
10/08/24 08:19 10/08/24 09:08 10/08/24 08:20 10/08/24 09:08 10/08/24 08:19
10/07/24 10/08/24 10/09/24
06:59 06:59 06:59
Actual Weight 103 kg 104.1 kg
10/08/24 03:49
10/08/24 03:49
PT 16.2 Sec (11.4-14.6) H 10/06/24 11:37
INR 1.27 10/06/24 11:37
APTT 30.5 Sec (23.4-35.0) 10/06/24 11:37
Magnesium 2.1 mg/dl (1.6-2.3) 10/08/24 03:49
Physical Exam
Constitutional: No acute distress
EENT: Anicteric
Cardiovascular: Rhythm & rate is regular, Systolic murmur absent, Pedal edema present (3+ bilateral pitting edema with chronic venous stasis changes) and S1S2 is normal
Respiratory: Respiratory effort normal and Rhonchi Present (Bibasilar)
GI: Soft
Neuro/Psych: AO x 3
Other: Skin (warm)
Data Reviewed
-
Date of Service: October 08, 2024
EKG: Tracing Personally Visualized and interpreted (Telemetry: Sinus rhythm/sinus tachycardia)
Labs: Labs Reviewed by me
Total Time Spent with Patient (in minutes): 35
[2024-10-08] MEDS: ROXICODONE 5 MG PO (11:38)
[2024-10-08] MEDS: NSS IV (12:29)
--- NOTE | 2024-10-08 12:34 | PTCARENOTE ---
VS obtained, assessment unchanged. Chest tubes d/c'd by BOBBI Cornel w/assist this RN. STORM Nina d/c'd as ordered. Patient tolerated well, resting comfortably.
--- NOTE | 2024-10-08 13:56 | CM ---
CM following for DC planning needs.
Met with patient at bedside. Pt. reports that he is feeling well, POD#2.
Antic. DC plan is for home w/ CT Transitional Care RN.
CM to cont. to follow.
[2024-10-08] MEDS: FERRLECIT 110 MG IV (14:08)
--- NOTE | 2024-10-08 15:58 | PTCARENOTE ---
VS obtained, assessment stable. Patient states pain much better controlled w/dc of chest tubes. Assisted oob to chair, dinner ordered. Visitors at bedside.
[2024-10-08 16:24] LABS: Glucose - Point of Care 82 mg/dl (70-99)
--- NOTE | 2024-10-08 20:20 | PTCARENOTE ---
received pt from previous rn. pt AAOx4, pt ambulated in arenas, VSS, NSR per tele monitor HR 80s, +pulses, +3 LE edema, lungs diminished throughout pox 98% on RA, frequent productive cough, +bs, voids in urinal. all surgical sites intact. CT site
c/d/i. piv intact. plan of care discussed, questions encouraged, call adams within reach
[2024-10-08] MEDS: LIPITOR 80 MG PO (22:12)
[2024-10-08 22:18] LABS: Glucose - Point of Care 233 mg/dl (70-99)
[2024-10-09] VITALS (12 sets, daily range): BP systolic 113–160; BP diastolic 68–88; PULSE 84; O2SAT 96–97; BMI 32.8
--- NOTE | 2024-10-09 00:07 | PTCARENOTE ---
VSS, NSR per tele monitor, assessment remains unchanged
--- NOTE | 2024-10-09 04:43 | PTCARENOTE ---
routine labs obtained, VSS , NSR per tele monitor, assessment remains unchanged.
[2024-10-09 05:03] LABS: Hematocrit 31.7 % (39.0-52.0); Hemoglobin 10.7 g/dL (13.0-18.0); Mean Corp Hgb Conc. 33.8 g/dL (33.0-37.0); Mean Corpuscular Hgb 35.9 pg (27.0-31.0); Mean Corpuscular Volume 106.4 fL (80.0-94.0); Mean Platelet Volume 11.1 fL (7.4-10.4); Platelet Count 121 10^3/uL (130-400); Red Blood Cell Count 2.98 10^6/uL (4.70-6.10); Red Cell Dist. Width 14.6 % (11.5-14.5)
[2024-10-09 05:26] LABS: Blood Urea Nitrogen 27 mg/dl (9-20); Calcium 8.8 mg/dl (8.4-10.2); Carbon Dioxide 27 mmol/L (22-30); Chloride 112 mmol/L (98-107); Estimated Creatinine Clearance 108 ml/min; Glucose 107 mg/dl (70-99); Magnesium 2.1 mg/dl (1.6-2.3); Potassium 4.4 mmol/L (3.5-5.1); Sodium 142 mmol/L (135-145); eGFR > 60.00
--- NOTE | 2024-10-09 06:39 | W.PN.CT ---
Today's Communication / Plan
-
-pod #3
-No major issues overnight. Hemodynamically and neurologically intact, feels better after CT came out
-Off all drips
-Underwent PCI with TIMOTHY to Lcx on 10/07/24
-Noted Cardiology recommendation for triple therapy for 1 week, then Plavix/NOAC for at least 6 months (ideally 1 year).
-No temporary PW
-Cont. current meds (ASA, Plavix, Lipitor, Coreg)
-Weaned off O2
-Encourage use of IS ([id number] so far)
-OOB into chair/Ambulate
-Home in 1-2 days
Assessment / Plan
-
Assessment:
-S/P Robotic assisted MIDCAB (single-vessel bypass NUNEZ in situ to LAD)/Robotic assisted harvest of internal mammary artery with anterolateral mini thoracotomy for CABG/Shingling of the rib for exposure, status post reconstruction with surgical
plates, by Dr. Gallegos, 10/06/24, pod#3
-S/p PCI with TIMOTHY to left circumflex, 10/07/24, by Dr. Huerta
-Triple Vessel Coronary artery disease involving the proximal LAD
-History of NSTEMI @ [facility] (peak trop 3.995), 08/07/24
-LVEF 55% per intraop ANTHONY
-No Conduit @ LE
-Chronic Lymphedema with LE ulcers/venostasis
-Bilateral DVTs on anticoagulation
-Pneumonia status post empyema requiring tPA and dornase to the right lower lobe, 08/08/24
-COPD
-Hyperlipidemia
-Hypertension
-Type 2 diabetes mellitus (hgb A1C 5.8)
-Class 1 obesity (BMI 31.8)
-Peripheral vascular disease
-Gout
-Shingles
-Anemia
-Hx colon ca S/P sigmoid resection, 2000
-Acute postop blood loss/on chronic anemia (stable without blood transfusion)
-Acute postop thrombocytopenia
-Acute postop atelectasis
-Acute postop hypovolemia with subsequent hypervolemia
-Acute postop SVT
Discussed patient care with: Nursing and Care Team
Subjective
Procedure
-S/P Robotic assisted MIDCAB (single-vessel bypass NUNEZ in situ to LAD)/Robotic assisted harvest of internal mammary artery with anterolateral mini thoracotomy for CABG/Shingling of the rib for exposure, status post reconstruction with surgical
plates, by Dr. Gallegos, 10/06/24
-
Date of Service: October 09, 2024
Objective Data
-
Lab Results
10/09/24 04:41
10/09/24 04:41
PT 16.2 Sec (11.4-14.6) H 10/06/24 11:37
INR 1.27 10/06/24 11:37
APTT 30.5 Sec (23.4-35.0) 10/06/24 11:37
Vital Signs
Vital Signs
Temp Pulse Resp BP Pulse Ox
97.6 F 79 16 113/74 98
10/09/24 04:25 10/09/24 04:00 10/09/24 04:25 10/09/24 03:55 10/09/24 04:25
CT Intake/Output/Weight
10/08/24 10/08/24 10/09/24
06:59 18:59 06:59
Intake Total 220 / 592.2 900 / 900
Output Total 830 / 1920 1120 / 1570 450 / 1570
Balance -610 / -1327.8 -220 / -670 -450 / -670
SaO2: 98
Physical Exam
-
General: Awake and AOx3
Cardiovascular: Regular rate & rhythm, No Murmurs and No Rub
Respiratory: Decreased Breath Sounds
Sternum: Stable
Incision: Clean, Dry and Intact
Extremities: Edema +2 (chronic b/l)
Abdomen: soft, nontender, nondistended, + bowel sounds
Data Reviewed
-
Lab Results: Results Reviewed
Medications: Active Meds Reviewed
Chest X-Ray: Report Reviewed and Image Reviewed
ECG: Report Reviewed and Image Reviewed
[2024-10-09] MEDS: TYLENOL PO ×3 (07:13→22:10)
--- NOTE | 2024-10-09 07:37 | W.PN.CD ---
Today's Communication / Plan
-
doing well
cont. routine post op care
looks good for dc tomorrow
Impression / Plan
-
68 year old man with recent admission for emypema c/b presumed type 2 NSTEMI, subsequently found to have 3v CAD but without venous condiuts, now s/p robotic NUNEZ-LAD (Rosy, 10/06) and staged PCI to the LCx (10/07, Deanna).
CAD s/p robotic NUNEZ-LAD, PCI to LCx, with RCA EDUCATION COORDINATOR:
- Continue routine postoperative care as directed by CT Surgery team.
- Triple therapy for 1 week, then plavix/NOAC for at least 6 months (ideally 1 year of DAPT given initial NSTEMI presentation).
- high intensity statin for goal LDL<55
- metoprolol
- amio for post op afib prevention per CTS
Prior DVTs on AC:
- restart OAC when safe from surgical standpoint
- Triple therapy for 1 week, then plavix/NOAC for at least 6 months (ideally 1 year of DAPT given initial NSTEMI presentation).
- Continue high-dose atorvastatin.
PSVT/sinus tachycardia:
- On postoperative prophylactic amiodarone.
HTN:
- BP stable.
Subjective:
feels well
wants to walk stairs today
likely home tomorrow
Intra Op ANTHONY 10/06/2024
Overall LVEF is approximately 55% with no RWMA.
Mildly dilated left atrium.
Aortic sclerosis without stenosis.
MV, PV, and TV appear to be functioning normally.
Mild scattered sessile atheroma seen in the descending aorta.
PMHx
Chronic Lymphedema with LE ulcers/venostasis
Bilateral DVTs on anticoagulation
Pneumonia status post empyema requiring tPA and dornase to the right lower lobe, 08/08/24
COPD
Hyperlipidemia
Hypertension
Type 2 diabetes mellitus (hgb A1C 5.8)
Class 1 obesity (BMI 31.8)
Peripheral vascular disease
Hx colon ca S/P sigmoid resection, 2000
Physical Exam
Vital Signs/Labs
Vital Signs
Temp Pulse Resp BP Pulse Ox
36.4 C 79 16 113/74 98
10/09/24 04:25 10/09/24 04:00 10/09/24 04:25 10/09/24 03:55 10/09/24 06:43
10/08/24 10/09/24 10/10/24
06:59 06:59 06:59
Actual Weight 104.1 kg 103.7 kg
10/09/24 04:41
10/09/24 04:41
PT 16.2 Sec (11.4-14.6) H 10/06/24 11:37
INR 1.27 10/06/24 11:37
APTT 30.5 Sec (23.4-35.0) 10/06/24 11:37
Magnesium 2.1 mg/dl (1.6-2.3) 10/09/24 04:41
Physical Exam
Constitutional: Comfortable
Cardiovascular: Rhythm & rate is regular
Respiratory: Respiratory effort normal
Neuro/Psych: AO x 3
Data Reviewed
-
Date of Service: October 09, 2024
Medical Decision Making: Reviewed Test Results
EKG: Tracing Personally Visualized and interpreted
X-Ray/CT/US/MRI/NUC/PET: Image Personally Visualized and interpreted
Labs: Labs Reviewed by me
[2024-10-09 07:47] LABS: Glucose - Point of Care 93 mg/dl (70-99)
[2024-10-09] MEDS: LIDOCAINE 4% PATCH TOPICAL (07:54)
--- NOTE | 2024-10-09 08:00 | PTCARENOTE ---
Patient received from human resources manager RN; AAOx3, responds spontaneously to RN and follows commands; VSS; NSR on monitor; +3 B/L LE edema; +1 DP and +2 radial pulses; Shallow respirations; Productive, occasional cough with clear sputum; SpO2 94-98% on
RA; IS 1000 ml; Lungs diminished at bases; Patient urinating in bathroom; Surgical sites intact; PIVx1 - #20 RAC; See nursing documentation for further details
[2024-10-09] MEDS: SENOKOT-S 1 TABLET PO ×2 (09:00→20:38)
[2024-10-09] MEDS: KCL 20 MEQ PO (09:00)
[2024-10-09] MEDS: COREG 6.25 MG PO ×2 (09:00→20:43)
[2024-10-09] MEDS: GLUCOTROL 10 MG PO ×2 (09:00→17:23)
[2024-10-09] MEDS: NEURONTIN 100 MG PO ×2 (09:00→22:09)
[2024-10-09] MEDS: MAGNESIUM OXIDE 500 MG PO ×2 (09:00→20:35)
[2024-10-09] MEDS: ZYLOPRIM 300 MG PO (09:00)
[2024-10-09] MEDS: PLAVIX 75 MG PO (09:00)
[2024-10-09] MEDS: PROTONIX 40 MG PO (09:00)
[2024-10-09] MEDS: LOW STRENGTH ASPIRIN 81 MG PO (09:01)
[2024-10-09] MEDS: LASIX 40 MG IV (09:01)
[2024-10-09] MEDS: BACTROBAN 2% OINTMENT 1 APPLIC NASAL ×2 (09:01→20:35)
[2024-10-09] MEDS: ELIQUIS 5 MG PO ×2 (09:01→20:39)
[2024-10-09] MEDS: PACERONE 200 MG PO ×3 (09:02→22:09)
--- NOTE | 2024-10-09 10:10 | CM ---
Priced Eliquis thru patient's insurance, [facility]- [phone]. Estimated cost of Eliquis x1 mo supply would be $143.
--- NOTE | 2024-10-09 10:11 | CM ---
Addendum entered by GURMEET Hope 10/09/24 12:53:
Met w/ patient at bedside. He prefers [facility] as he was open to them a few weeks ago.
Cancelled [facility] referral and initiated referral to [facility]; patient has been accepted.
DC plan is for home w/ [facility]
Original Note:
CT Transitional Care RN unable to service patient's geographical area.
[facility] Patient has been accepted.
DC [facility] is now [facility].
[2024-10-09] MEDS: NSS IV (10:40)
--- NOTE | 2024-10-09 12:00 | PTCARENOTE ---
Patient completed stairs with cardiac rehab and ambulating in hallways; Patient resting comfortably in chair at this time
[2024-10-09 12:30] LABS: Glucose - Point of Care 93 mg/dl (70-99)
[2024-10-09] MEDS: FERRLECIT 110 MG IV (14:16)
--- NOTE | 2024-10-09 14:33 | PTCARENOTE ---
Patient received from lapel padder blindstitch RN; AAOx3, responds spontaneously to RN and follows commands; VSS; NSR on monitor; +3 B/L LE edema; +1 DP and +2 radial pulses; Shallow respirations; Productive, occasional cough with clear sputum; SpO2 94-98% on
RA; IS 1000 ml; Lungs diminished at bases; Patient urinating in bathroom; Surgical sites intact; PIVx1 - #20 RAC; See nursing documentation for further details
[2024-10-09] MEDS: NEURONTIN PO (15:38)
--- NOTE | 2024-10-09 16:55 | PTCARENOTE ---
Patient ambulating in hallways with RN; Patient resting comfortably in chair
[2024-10-09 17:23] LABS: Glucose - Point of Care 125 mg/dl (70-99)
--- NOTE | 2024-10-09 17:47 | PTCARENOTE ---
Patient showered with CHG soap; Patient resting comfortably in chair
--- NOTE | 2024-10-09 20:00 | PTCARENOTE ---
1999
Patient received from RN @1900. Patient sitting in bed comfortably w/ call adams in reach. AOx4, denies pain. Sinus Rythym , Heart sounds audible. BP stable. POX 98% RA. Lungs clear but diminished in the bases. Bowel sounds active. Voids
with out issue. OOB 1 person standby assist. Sternal insision open to air. Left Axillary puncture approximated BENIGNO.
[2024-10-09] MEDS: ENTRESTO 24 MG/26 MG 1 TAB PO (20:35)
[2024-10-09] MEDS: LIPITOR 80 MG PO (22:09)
[2024-10-09 22:15] LABS: Glucose - Point of Care 132 mg/dl (70-99)
[2024-10-10] VITALS (7 sets, daily range): BP systolic 110–148; BP diastolic 73–81; PULSE 90; O2SAT 97–98; BMI 32.6
--- NOTE | 2024-10-10 00:59 | PTCARENOTE ---
Patient resting comfortably VSS,denies pain.
[2024-10-10 03:48] LABS: Hematocrit 30.8 % (39.0-52.0); Hemoglobin 10.4 g/dL (13.0-18.0); Mean Corp Hgb Conc. 33.8 g/dL (33.0-37.0); Mean Corpuscular Hgb 35.6 pg (27.0-31.0); Mean Corpuscular Volume 105.5 fL (80.0-94.0); Mean Platelet Volume 11.2 fL (7.4-10.4); Platelet Count 132 10^3/uL (130-400); Red Blood Cell Count 2.92 10^6/uL (4.70-6.10); Red Cell Dist. Width 14.7 % (11.5-14.5); White Blood Cell Count 9.2 10^3/uL (4.8-10.8)
[2024-10-10 04:11] LABS: Blood Urea Nitrogen 29 mg/dl (9-20); Calcium 8.7 mg/dl (8.4-10.2); Carbon Dioxide 26 mmol/L (22-30); Chloride 110 mmol/L (98-107); Estimated Creatinine Clearance 86 ml/min; Glucose 118 mg/dl (70-99); Magnesium 1.9 mg/dl (1.6-2.3); Potassium 4.6 mmol/L (3.5-5.1); Sodium 141 mmol/L (135-145); eGFR > 60.00
--- NOTE | 2024-10-10 04:20 | PTCARENOTE ---
patient ambulated to bathroom . VSS, afebrile. alert and oriented. Denies pain. labs drawn.
[2024-10-10] MEDS: TYLENOL PO (06:21)
--- NOTE | 2024-10-10 07:32 | W.PN.CT ---
Today's Communication / Plan
-
-pod #4
-No major issues overnight. Hemodynamically and neurologically intact
-no drips
-Noted Cardiology recommendation for triple therapy for 1 week, then Plavix/NOAC for at least 6 months (ideally 1 year). Gypsy started on 10/09
-No temporary PW
-Cont. current meds (ASA, Plavix, Lipitor, Coreg)
-Weaned off O2
-Encourage use of IS ([id number] so far)
-OOB into chair/Ambulate
-follow 2v-CXR
-possible home today
Assessment / Plan
-
Assessment:
-S/P Robotic assisted MIDCAB (single-vessel bypass NUNEZ in situ to LAD)/Robotic assisted harvest of internal mammary artery with anterolateral mini thoracotomy for CABG/Shingling of the rib for exposure, status post reconstruction with surgical
plates, by Dr. Gallegos, 10/06/24, pod#4
-S/p PCI with TIMOTHY to left circumflex, 10/07/24, by Dr. Huerta
-Triple Vessel Coronary artery disease involving the proximal LAD
-History of NSTEMI @ [facility] (peak trop 3.995), 08/07/24
-LVEF 55% per intraop ANTHONY
-No Conduit @ LE
-Chronic Lymphedema with LE ulcers/venostasis
-Bilateral DVTs on anticoagulation
-Pneumonia status post empyema requiring tPA and dornase to the right lower lobe, 08/08/24
-COPD
-Hyperlipidemia
-Hypertension
-Type 2 diabetes mellitus (hgb A1C 5.8)
-Class 1 obesity (BMI 31.8)
-Peripheral vascular disease
-Gout
-Shingles
-Anemia
-Hx colon ca S/P sigmoid resection, 2000
-Acute postop blood loss/on chronic anemia (stable without blood transfusion)
-Acute postop thrombocytopenia
-Acute postop atelectasis
-Acute postop hypovolemia with subsequent hypervolemia
-Acute postop SVT
Discussed patient care with: Nursing and Care Team
Subjective
Procedure
-S/P Robotic assisted MIDCAB (single-vessel bypass NUNEZ in situ to LAD)/Robotic assisted harvest of internal mammary artery with anterolateral mini thoracotomy for CABG/Shingling of the rib for exposure, status post reconstruction with surgical
plates, by Dr. Gallegos, 10/06/24
-
Date of Service: October 10, 2024
Objective Data
-
Lab Results
10/10/24 03:22
10/10/24 03:22
PT 16.2 Sec (11.4-14.6) H 10/06/24 11:37
INR 1.27 10/06/24 11:37
APTT 30.5 Sec (23.4-35.0) 10/06/24 11:37
Vital Signs
Vital Signs
Temp Pulse Resp BP Pulse Ox
98.5 F 94 18 147/81 96
10/10/24 03:33 10/10/24 03:27 10/10/24 02:00 10/10/24 03:27 10/10/24 03:27
CT Intake/Output/Weight
10/09/24 10/10/24 10/10/24
18:59 06:59 18:59
Intake Total 120 / 420 300 / 420
Balance 120 / 420 300 / 420
SaO2: 96
Physical Exam
-
General: Awake and AOx3
Cardiovascular: Regular rate & rhythm, No Murmurs and No Rub
Respiratory: Decreased Breath Sounds
Sternum: Stable
Incision: Clean, Dry and Intact
Abdomen: soft, nontender, nondistended, + bowel sounds
Extremities: Edema +2 (chronic b/l)
Data Reviewed
-
Lab Results: Results Reviewed
Medications: Active Meds Reviewed
Chest X-Ray: Report Reviewed and Image Reviewed
ECG: Report Reviewed and Image Reviewed
[2024-10-10 07:44] LABS: Glucose - Point of Care 117 mg/dl (70-99)
[2024-10-10] MEDS: LIDOCAINE 4% PATCH TOPICAL (07:44)
[2024-10-10] MEDS: NEURONTIN PO (07:44)
[2024-10-10] MEDS: GLUCOTROL 10 MG PO (07:50)
[2024-10-10] MEDS: LASIX 40 MG PO (07:50)
[2024-10-10] MEDS: MILK OF MAGNESIA 30 ML PO (07:50)
[2024-10-10] MEDS: MAGNESIUM OXIDE 500 MG PO (07:50)
[2024-10-10] MEDS: BACTROBAN 2% OINTMENT 1 APPLIC NASAL (07:50)
[2024-10-10] MEDS: ZYLOPRIM 300 MG PO (07:50)
[2024-10-10] MEDS: ENTRESTO 24 MG/26 MG 1 TAB PO (07:50)
[2024-10-10] MEDS: PROTONIX 40 MG PO (07:50)
[2024-10-10] MEDS: ELIQUIS 5 MG PO (07:50)
[2024-10-10] MEDS: PACERONE 200 MG PO (07:50)
[2024-10-10] MEDS: PLAVIX 75 MG PO (07:50)
[2024-10-10] MEDS: FARXIGA 10 MG PO (07:50)
[2024-10-10] MEDS: COREG 12.5 MG PO (07:50)
[2024-10-10] MEDS: SENOKOT-S 1 TABLET PO (07:50)
[2024-10-10] MEDS: LOW STRENGTH ASPIRIN 81 MG PO (07:50)
--- NOTE | 2024-10-10 09:33 | PTCARENOTE ---
Patient received from mini shifter RN; AAOx3, responds spontaneously to RN and follows commands; VSS; NSR on monitor; +3 B/L LE edema; +1 DP and +2 radial pulses; Shallow respirations; Productive, occasional cough with clear sputum; SpO2 95-98% on
RA; IS 1000 ml; Lungs diminished at bases; Patient urinating in bathroom; Patient complains of constipation - PRN Milk of Magnesia given; Surgical sites intact; PIVx1 - #20 RAC; See nursing documentation for further details
--- NOTE | 2024-10-10 09:42 | W.DCSUMMARY ---
Discharge Summary
Discharge Data
Date of Admission: 10/06/24
Date of Discharge: 10/10/24
Total time spent discharging patient (in min): 45
-
Pending Results: No
Hospital Course
Primary care physician:
Dr. Fuller
Outpatient consumer relations complaint clerk:
Dr. Sin
Inpatient consultants:
CBC, Editorial Project Manager
Procedures:
1. Robotic assisted MIDCAB (single-vessel bypass NUNEZ in situ to LAD)/Robotic assisted harvest of internal mammary artery with anterolateral mini thoracotomy for CABG/Shingling of the rib for exposure, status post reconstruction with surgical
plates, by Dr. Gallegos, 10/06/24
2. PCI with TIMOTHY to left circumflex, 10/07/24, by Dr. Huerta
Primary Diagnosis:
1. Coronary Artery Disease with proximal LAD involvement
Secondary Diagnoses:
1. Acute postop hypovolemia with subsequent hypervolemia
2. Pneumonia status post empyema requiring tPA and dornase to the right lower lobe
3. History of NSTEMI
4. Hyperlipidemia
5. Hypertension
6. Type 2 diabetes mellitus
7. Morbid obesity BMI greater than 30
8. Peripheral vascular disease with chronic venous stasis changes
9. Bilateral DVTs on anticoagulation
HPI: 68-year-old male who initially was transferred over here with an empyema/entrapped lung and questionable NSTEMI. After multidisciplinary team discussion, it was determined that this was likely stress-induced/sepsis induced troponin
elevation. Given his respiratory status, he was given time to recover and then was seen as an outpatient in the office for consideration of coronary revascularization. As part of his workup vein mapping was performed which we incidentally found
bilateral lower extremity DVTs involving the greater saphenous vein meaning that there was no conduit to use. His lesions were not tight enough for multi tear grafting and so he was given the option of hybrid revascularization Discussion with
interventional cardiology. The STS risk was discussed with the patient in the office and the shared decision making was to pursue a single-vessel bypass using his mammary artery to his LAD via a mini invasive approach. He presented electively on 10/06
for a MIDCAB with Dr. Gallegos
Hospital course:
Patient presented electively on 10/06 for a robotic assisted MIDCAB with Dr. Gallegos. Postoperatively he did well he was extubated in the CVICU and was on Cardene for blood pressure control. Plavix was started that night in preparation for PCI in the
morning with Dr. Sy. On 10/07 postoperative day 1 patient was weaned off Cardene for blood pressure support was Plavix loaded with 600 mg then brought to the [facility] where he received a drug-eluting stent to the left circumflex. Arterial line
was removed in the [facility]. On 10/08 postoperative day 2, Barrios, Cordis, and chest tubes were removed and patient was switched to his home medication Coreg. On 10/09 postoperative day 3 patient was resumed on Eliquis, Entresto, and Farxiga. He
tolerated those medications well. On 10/10 postoperative day 4, patient's bp was able to tolerate home dose of coreg. Patient was deemed stable for discharge home, 2 view chest x-ray remained stable, and he will continue aspirin for total of 1 week
and continue Eliquis and Plavix for at least 6 months to a year.
Home medication changes:
see below
Discharge Plan
-
Patient Disposition: Home (Routine Discharge)
Discharge Diagnosis/Procedures: MIDCAB x 1 NUNEZ-LAD (10/06); Angioplasty and stent to left circumflex artery (10/07)
Condition: Good
Diet: Low Cholesterol, Low Sodium and Diabetic, Carb Controlled
Activity: No strenuous activity
Driving Restrictions: No driving for 2 weeks
Bathing Restrictions: OK to Shower
Other Services: Cardiac Rehab
Specialty Instructions: Weigh Daily- Call MD for wt gain/loss 3 lbs overnight/5 lbs in 1 week
Stand Alone Forms: DC Instructions- Cath/EP Lab
Referrals:
[facility] [Outside] - in one to two days
Referral Note: Fax- [phone]
[facility] [Outside] - 11/07/24 1:00 pm
Referral Note: Cardiac Rehab Orientation appointment is on 11/07 at 1 PM
The Cardiac Rehab gym is located on the first floor of the [facility].
Gibran Fuller DO [Family Provider, [facility]]
Shruthi Branham MD [Active, Pulmonary Medicine]
Referral Note: Follow up in February 2025 as per recommendation from last office visit on 09/10/2024
Randall Antunez MD [Active, Cardiology] - 11/18/24 3:00 pm
Umesh Gallegos MD [Active, Cardiac Surgery] - 11/03/24 2:00 pm
Additional Discharge Medication Instructions: Please take aspirin until 10/14 and then take Eliquis and plavix daily for one year
Prescriptions:
New
clopidogrel 75 mg Tablet
75 mg PO DAILY Qty: 60 1RF
pantoprazole 40 mg Tablet,Delayed Release (Dr/Ec)
40 mg PO DAILY Qty: 60 1RF
oxycodone 5 mg Tablet
2.5 mg PO Q4HPRN PRN (Reason: severe pain) Qty: 10 0RF
Continued
furosemide 40 mg Tablet
40 mg PO DAILY
acetaminophen [Tylenol] 325 mg Tablet
650 mg PO Q6H PRN (Reason: mild pain)
carvedilol 12.5 mg Tablet
12.5 mg PO BID
glipizide 10 mg Tablet
10 mg PO BID
aspirin 81 mg Tablet,Delayed Release (Dr/Ec)
81 mg PO DAILY
guaifenesin 100 mg/5 mL Liquid
100 mg PO Q4H PRN (Reason: cough)
allopurinol 300 mg Tablet
300 mg PO DAILY
melatonin 5 mg Tablet
5 mg PO HS PRN (Reason: sleep)
Eliquis DVT-PE Treat 30D Start 5 mg (74 tabs) tablets,dose pack
See Rx Instructions .ROUTE .COMPLEX
Rx Instructions:
orally per package directions
dapagliflozin propanediol 10 mg tablet
10 mg PO DAILY
Entresto 24-26 mg tablet
1 tab PO BID
Changed
atorvastatin 20 mg Tablet
80 mg PO QPM Qty: 30 0RF
Discharge Orders:
Discharge Patient (As Directed); Ordered 10/10/24
Ordered By: Amy Calero
Care Plan Goals
Care Plan Goals:
Problem: Readiness for enhanced knowledge related to diagnosis and treatment plan
Goal: Understand your diagnosis and treatment plan needs, including medications if applicable.
Instructions: Know your diagnosis, underlying causes and treatment plan options, including medications if applicable. Consult with your health care team to learn about your diagnosis and treatment plan, including medications if applicable.
Discharge Date and Time
Print Language: BENGALI
[2024-10-10] MEDS: NSS IV (10:19)
--- NOTE | 2024-10-10 13:24 | PTCARENOTE ---
pt discharged to home with spouse via wheelchair escort. All instructions including follow up visits, med list with times, and general postop care instructions provided. pt and confirmed understanding via teach back. IV and tele removed.
== END 2024-10-10 13:26 | disposition home or self-care (01) | DRG 232 ==
LOC: CVICU 05:31
PROVIDERS: Anesthesiology; Student in an Organized Health Care Education/Training Program; ADMITTING PHYSICIAN Thoracic Surgery (Cardiothoracic Vascular Surgery); CONSULT PHYSICIAN Internal Medicine Critical Care Medicine; FAMILY PHYSICIAN Family Medicine
PROC: 02100Z9 Bypass Coronary Artery, One Artery from Left Internal Mammary, Open Approach (ICD-10-PCS; 2024-10-06)
PROC: 8E0W0CZ Robotic Assisted Procedure of Trunk Region, Open Approach (ICD-10-PCS; 2024-10-06)
PROC: B24BZZ4 Ultrasonography of Heart with Aorta, Transesophageal (ICD-10-PCS; 2024-10-06)
PROC: B240ZZ3 Ultrasonography of Single Coronary Artery, Intravascular (ICD-10-PCS; 2024-10-07)
PROC: B2151ZZ Fluoroscopy of Left Heart using Low Osmolar Contrast (ICD-10-PCS; 2024-10-07)
PROC: 027034Z Dilation of Coronary Artery, One Artery with Drug-eluting Intraluminal Device, Percutaneous Approach (ICD-10-PCS; 2024-10-07)
PROC: B2181ZZ Fluoroscopy of Left Internal Mammary Bypass Graft using Low Osmolar Contrast (ICD-10-PCS; 2024-10-07)
PROC: B2111ZZ Fluoroscopy of Multiple Coronary Arteries using Low Osmolar Contrast (ICD-10-PCS; 2024-10-07)
DX: I25.10 Atherosclerotic heart disease of native coronary artery without angina pectoris (principal); L97.919 Non-pressure chronic ulcer of unspecified part of right lower leg with unspecified severity; L97.929 Non-pressure chronic ulcer of unspecified part of left lower leg with unspecified severity; D62 Acute posthemorrhagic anemia; J98.11 Atelectasis; I47.10 Supraventricular tachycardia, unspecified; I82.813 Embolism and thrombosis of superficial veins of lower extremities, bilateral; E78.00 Pure hypercholesterolemia, unspecified; E11.51 Type 2 diabetes mellitus with diabetic peripheral angiopathy without gangrene; I10 Essential (primary) hypertension; I89.0 Lymphedema, not elsewhere classified; M10.9 Gout, unspecified; D69.59 Other secondary thrombocytopenia; E83.51 Hypocalcemia; E11.65 Type 2 diabetes mellitus with hyperglycemia; E11.621 Type 2 diabetes mellitus with foot ulcer; I83.009 Varicose veins of unspecified lower extremity with ulcer of unspecified site; E66.811 Obesity, class 1; E11.40 Type 2 diabetes mellitus with diabetic neuropathy, unspecified; E86.1 Hypovolemia; E87.70 Fluid overload, unspecified; E03.9 Hypothyroidism, unspecified; I25.2 Old myocardial infarction; Z68.32 Body mass index [BMI] 32.0-32.9, adult; Z79.01 Long term (current) use of anticoagulants; Z79.82 Long term (current) use of aspirin; Z79.84 Long term (current) use of oral hypoglycemic drugs; Z79.899 Other long term (current) drug therapy; Z82.49 Family history of ischemic heart disease and other diseases of the circulatory system; Z87.01 Personal history of pneumonia (recurrent); Z86.718 Personal history of other venous thrombosis and embolism; Z85.038 Personal history of other malignant neoplasm of large intestine
CPT/HCPCS: 36415; 71045; 71046; 80048; 80053; 81003; 81015; 82248; 82330; 82565; 82805; 82947; 82962; 83036; 83735; 84132; 84302; 84520; 85014; 85018; 85025; 85027; 85049; 85610; 85730; 86850; 86900; 86901; 86920; 87070; 92978; 93005; 93312; 93320; 93325; 93459; 93880; 93923; 93930; 93970; 94002; 99152; 99153; C1713; C1725; C1753; C1874; C1894; C9600; J2916; P9045; Q9967

== ENCOUNTER 2024-11-26 16:07 | Outpatient (RCR) | payer MEDICARE, BC, SELFPAY ==
[2024-11-07 14:38] LABS: Glucose - Point of Care 139 mg/dl (70-99)
[2024-11-07 15:23] LABS: Glucose - Point of Care 134 mg/dl (70-99)
[2024-11-17 15:41] LABS: Glucose - Point of Care 233 mg/dl (70-99)
[2024-11-17 16:22] LABS: Glucose - Point of Care 208 mg/dl (70-99)
[2024-11-19 15:43] LABS: Glucose - Point of Care 129 mg/dl (70-99)
[2024-11-19 16:45] LABS: Glucose - Point of Care 120 mg/dl (70-99)
[2024-11-21 14:44] LABS: Glucose - Point of Care 181 mg/dl (70-99)
[2024-11-21 15:41] LABS: Glucose - Point of Care 129 mg/dl (70-99)
[2024-11-24 15:43] LABS: Glucose - Point of Care 194 mg/dl (70-99)
[2024-11-24 16:33] LABS: Glucose - Point of Care 170 mg/dl (70-99)
[2024-11-26 15:46] LABS: Glucose - Point of Care 182 mg/dl (70-99)
[2024-11-26 16:59] LABS: Glucose - Point of Care 105 mg/dl (70-99)
== END 2024-11-26 23:59 | disposition home or self-care (01) ==
LOC: CRHB 16:07
PROVIDERS: ATTENDING PHYSICIAN Internal Medicine Cardiovascular Disease
DX: I25.10 Atherosclerotic heart disease of native coronary artery without angina pectoris (principal); I25.2 Old myocardial infarction; Z95.1 Presence of aortocoronary bypass graft; Z95.5 Presence of coronary angioplasty implant and graft
CPT/HCPCS: 82962; G0422; G0423

== ENCOUNTER 2024-12-24 16:24 | Outpatient (RCR) | payer MEDICARE, BC, SELFPAY ==
[2024-12-01 15:44] LABS: Glucose - Point of Care 174 mg/dl (70-99)
[2024-12-01 16:50] LABS: Glucose - Point of Care 151 mg/dl (70-99)
== END 2024-12-24 23:59 | disposition home or self-care (01) ==
LOC: CRHB 16:24
PROVIDERS: ATTENDING PHYSICIAN Internal Medicine Cardiovascular Disease
DX: Z95.1 Presence of aortocoronary bypass graft (principal); Z95.5 Presence of coronary angioplasty implant and graft
CPT/HCPCS: 82962; G0422; G0423

== ENCOUNTER 2025-01-26 16:12 | Outpatient (RCR) | payer MEDICARE, BC, SELFPAY | END 2025-01-26 23:59 | disposition home or self-care (01) | LOC: CRHB 16:12 | PROVIDERS: ATTENDING PHYSICIAN Internal Medicine Cardiovascular Disease | DX: Z95.1 Presence of aortocoronary bypass graft (principal); Z95.5 Presence of coronary angioplasty implant and graft | CPT/HCPCS: G0422; G0423 ==

== ENCOUNTER 2025-02-20 16:31 | Outpatient (RCR) | payer MEDICARE, BC, SELFPAY | END 2025-02-20 23:59 | disposition home or self-care (01) | LOC: CRHB 16:31 | PROVIDERS: ATTENDING PHYSICIAN Internal Medicine Cardiovascular Disease; FAMILY PHYSICIAN Family Medicine | DX: Z95.1 Presence of aortocoronary bypass graft (principal); Z95.5 Presence of coronary angioplasty implant and graft | CPT/HCPCS: G0422; G0423 ==